=== PATIENT | female | born 1945 | race Hispanic/Latino ===

== ENCOUNTER 2017-07-30 21:09 | Inpatient (IN) | payer OTHER, MEDICARE ==
[2017-07-30 21:09] VITALS: BMI 17.2
--- NOTE | 2017-07-30 21:22 | ED PDOC ---
"Arrival/HPI - General Time Seen by Provider: 07/30/17 21:14 Historian: Patient, Parent, EMS - History of Present Illness Narrative History of Present Illness (Text): 07/30/17 21:16 72 year old female, pmh including htn/copd/lt. hip fracture/celiac disease/ osteoporosis, nkda, complaining of upper and abdominal pain x 1 week with nausea/vomiting. Pt. stated that she has upper and lower abdominal pain, on and off x 1 week, not been eating for the past 5 days, radiating to the rt. shoulder blade region, 4/10 pain scale, associated with nausea dry heaving, stated that she had an episode of fever about 3 days ago which has resolved since, no chest pain or shortness of breath, no night sweat, no diarrhea, no numbness or tingling, no other medical or psychological complaints. Past Medical History - Provider Review Nursing Documentation Reviewed: Yes - Infectious Disease Hx of Infectious Diseases: None - Tetanus Immunization Tetanus Immunization: Up to Date - Past Medical History Past Medical History: No Previous - Cardiac Hx Cardiac Disorders: Yes Other/Comment: PALPITATIONS POST ORIF R HIP ONE EPISODE - Pulmonary Hx Chronic Obstructive Pulmonary Disease (COPD): Yes - Neurological Hx Neurological Disorder: No - HEENT Hx HEENT Disorder: No - Renal Hx Renal Disorder: No - Endocrine/Metabolic Hx Endocrine Disorders: No - Hematological/Oncological Hx Blood Transfusions: No Hx Blood Transfusion Reaction: No - Integumentary Hx Dermatological Disorder: No - Musculoskeletal/Rheumatological Hx Falls: Yes (@ HOME TODAY) - Gastrointestinal Hx Gastrointestinal Disorders: Yes Other/Comment: CELIAC DISEASE - Genitourinary/Gynecological Hx Genitourinary Disorders: No - Psychiatric Hx Psychophysiologic Disorder: Yes Hx Anxiety: Yes Hx Bipolar Disorder: Yes Hx Panic Disorder: Yes (PALPITATIONS) Hx Substance Use: No - Surgical History Hx Orthopedic Surgery: Yes (ORIF RIGHT HIP) - Anesthesia Hx Anesthesia Reactions: No Hx Malignant Hyperthermia: No - Suicidal Assessment Feels Threatened In Home Enviroment: No Family/Social History - Physician Review Nursing Documentation Reviewed: Yes Family/Social History: Unknown Family HX Smoking Status: Never Smoked Hx Alcohol Use: No Hx Substance Use: No Hx Substance Use Treatment: No Allergies/Home Meds Allergies/Adverse Reactions: Allergies No Known Allergies Allergy (Verified 06/03/14 15:21) Home Medications: Home Meds Medication Instructions Recorded Confirmed Diazepam 5 mg PO BID 06/03/14 07/31/17 Quetiapine Fumarate [Seroquel] 50 mg PO BID 06/03/14 07/31/17 Tramadol Hydrochloride [Tramadol] 50 mg PO TID PRN 06/03/14 07/31/17 Aspirin 81 mg PO DAILY 07/31/17 07/31/17 Cholecalciferol (Vitd3)/Vit K2 5,000 units PO DAILY 07/31/17 07/31/17 [Dosoquin Tablet] FLUoxetine [Prozac] 20 mg PO BID 07/31/17 07/31/17 Gabapentin [Neurontin] 50 mg PO TID PRN 07/31/17 07/31/17 Levocetirizine Dihydrochloride 5 mg PO DAILY 07/31/17 07/31/17 [Xyzal] Levothyroxine [Synthroid] 50 mcg PO DAILY 07/31/17 07/31/17 Potassium Chloride [Klor-Con M10] 10 meq PO BID 07/31/17 07/31/17 Preservision Areds Softgel TID 07/31/17 tiZANidine [Zanaflex] 4 mg PO HS 07/31/17 07/31/17 traMADol [Ultram] 50 mg PO DAILY PRN 07/31/17 07/31/17 Review of Systems - Review of Systems Constitutional: Fevers. absent: Fatigue Eyes: absent: Vision Changes ENT: absent: Hearing Changes Respiratory: absent: SOB, Cough Cardiovascular: absent: Chest Pain Gastrointestinal: Abdominal Pain, Nausea, Vomiting. absent: Diarrhea Skin: absent: Rash, Pruritis Neurological: absent: Headache, Dizziness Psychiatric: absent: Anxiety, Depression, Suicidal Ideation Physical Exam Vital Signs Reviewed: Yes Vital Signs Temp Pulse Resp BP Pulse Ox 07/31/17 01:29 82 16 148/82 100 07/31/17 01:07 84 18 150/66 99 07/30/17 21:22 82 18 148/76 99 07/30/17 21:19 97.1 F L 69 18 99 Temperature: Afebrile Pulse: Regular Respiratory Rate: Normal Appearance: Positive for: Ill-Appearing, Unkept, Uncomfortable Pain Distress: Moderate Mental Status: Positive for: Alert and Oriented X 3 - Systems Exam Head: Present: Atraumatic, Normocephalic Pupils: Present: PERRL Extroacular Muscles: Present: EOMI Conjunctiva: Present: Normal Mouth: Present: Moist Mucous Membranes Neck: Present: Normal Range of Motion Respiratory/Chest: Present: Clear to Auscultation, Good Air Exchange. No: Respiratory Distress, Accessory Muscle Use Cardiovascular: Present: Regular Rate and Rhythm, Normal S1, S2. No: Murmurs Abdomen: Present: Tenderness (periumbilical and epigastric tenderness). No: Distention, Peritoneal Signs, Rebound, Guarding Back: Present: Normal Inspection. No: CVA Tenderness, Midline Tenderness Upper Extremity: Present: Normal Inspection. No: Cyanosis, Edema Lower Extremity: Present: Normal Inspection. No: Edema Neurological: Present: GCS=15, CN II-XII Intact, Speech Normal, Motor Func Grossly Intact, Memory Normal Skin: Present: Warm, Dry, Normal Color. No: Rashes Psychiatric: Present: Alert, Oriented x 3, Normal Insight, Normal Concentration Medical Decision Making ED Course and Treatment: 07/30/17 21:25 -labs/lipase/cardiac iso/ua -ekg -cxr -CT abdomen and pelvis -IVF/pepcid/zofran -Observe and reassess 07/31/17 00:40 -EKG: NSR @ 68 BPM, no ST elevation or depression, no T wave inversion. -Chest xray show no active disease -CT abdomen and pelvis show Markedly distended gallbladder with layering sludge or tiny stones. Recommend correlation with laboratory values. Right upper quadrant ultrasound could be obtained if warranted. Mildly dilated common bile duct and pancreatic duct. No distal common bile duct stone or periampullary mass. Left midpole renal mass. Renal cell carcinoma is not excluded. Surgical consult recommended. Recommend surgical evaluation. Alternatively, if patient has a limited life expectancy or significant co-morbidities, abdominal CT or MRI follow-up in 1 year could be performed. Mild diverticulosis. No acute diverticulitis. Age indeterminate anterior wedge T12 compression fracture. -Labs show no acute findings except wbc 15.6 and Anion gap 28, BNP 480, Troponin 0.04 from 0.06 -Acetaminophen/salicylate/alcohol levels are within normal limit -Lactic acid 1.1 -VBG: PH 7.15, PCO2 34 with HCO3 11.8. Metabolic acidosis from starvation ketoacidosis? -Urinalysis ordered and pending. -IV cipro and flagyl ordered with gallbladder sonogram. -I spoke to Dr. Mir about this case including labs/radiology result about the cholecystitis picture with incidental renal mass which she request DR. Kennedy and Dr. Hilton to be on the routine consult which I placed the order, pt. agreed and happy with these specialists as she has no preference. -I spoke to the surgical assistant certified fuel injection servicer now, Dr. Elaine Spicer and discussed with Dr. Kennedy about this case, will come to evaluate the patient. -I discussed with Dr. Dyson about this case/labs/radiology result and troponin 0.04 which last was 0.06 and suggest no aspirin indicated as the patient has no chest pain or shortness of breath, he will put in the admission order. 07/31/17 00:43 -Pt in pain, IV morphine ordered - Lab Interpretations Lab Results: 07/30/17 21:43 07/30/17 21:43 Lab Results 07/30/17 22:05: Alcohol, Quantitative < 10 07/30/17 22:05: Salicylates < 1 L, Acetaminophen < 10.0 L 07/30/17 21:43: pO2 34, VBG pH 7.15 L*, VBG pCO2 34.0 L, VBG HCO3 11.8 L, VBG Total CO2 12.8 L, VBG O2 Sat (Calc) 67.1 H, VBG Base Excess -16.0 L, VBG Potassium 3.8, Sodium 142.0, Chloride 111.0 H, Glucose 103, Lactate 1.1, FiO2 21.0, Venous Blood Potassium 3.8 07/30/17 21:43: Sodium 147, Chloride 111 H, Potassium 3.8, Carbon Dioxide 11 L, Anion Gap 28 H, BUN 11, Creatinine 0.5 L, Est GFR ( Amer) > 60, Est GFR ( Non-Af Amer) > 60, Random Glucose 104, Calcium 9.6, Magnesium 1.7, Total Bilirubin 0.5, AST 21, ALT 25, Alkaline Phosphatase 80, Lactate Dehydrogenase 491, Total Creatine Kinase 61, Troponin I 0.04 D, NT-Pro-B Natriuret Pep 484 H , Total Protein 8.0, Albumin 4.6, Globulin 3.4, Albumin/Globulin Ratio 1.4, Lipase 153 07/30/17 21:43: WBC 15.6 H D, RBC 4.76, Hgb 12.6, Hct 38.5, MCV 80.9, MCH 26.5, MCHC 32.7, RDW 17.3 H, Plt Count 414, MPV 10.8, Gran % 95.4 H, Lymph % (Auto) 2.8 L, Luna % (Auto) 1.7, Eos % (Auto) 0.0 L, Baso % (Auto) 0.1, Gran # 14.87 H , Lymph # (Auto) 0.4 L, Luna # (Auto) 0.3, Eos # (Auto) 0.0, Baso # (Auto) 0.02 , Neutrophils % (Manual) 90 H, Band Neutrophils % 3 H, Lymphocytes % (Manual) 3 L, Monocytes % (Manual) 3, Metamyelocytes % 1, Platelet Evaluation Normal, Large Platelets Present - RAD Interpretation Radiology Orders: 07/30/17 21:22 ABD & PELVIS IV CONTRAST ONLY [CT] Stat CHEST PORTABLE [RAD] Stat 07/31/17 00:13 GALLBLADDER & PANCREAS [US] Stat Chest xray: no active disease Gallbladder/pancrea sonogram: FINDINGS: Liver: Unremarkable measuring 16.9 cm. No mass. No intrahepatic bile duct dilation. Gallbladder: The gallbladder is distended with sludge and stones. Common bile duct: Unremarkable as visualized measuring 7 mm. No stones. No dilation. Pancreas: The pancreas is poorly-visualized due to overlying bowel gas. Right kidney: Unremarkable measuring 10.8 cm. No stones. No solid mass. No hydronephrosis. IMPRESSION: Gallbladder sludge and stones. Thank you for allowing us to participate in the care of your patient. Dictated and Authenticated by: Silvia Jaquez MD 07/31/2017 1:48 AM Eastern Time ([place] & [place]) CT abdomen and pelvis: COMPARISON: No relevant prior studies available. FINDINGS: Lung bases: There is minimal bibasilar atelectasis. Left lung base linear atelectasis or scar. ABDOMEN: Liver: There is a diffuse decrease in hepatic parenchymal density, consistent with fatty infiltration. There is a solid mass in the midpole of the left kidney measuring 2 x 1.8 x 2.3 cm. KIRK CHELI | Final Radiology Report Page 2 of 3 Gallbladder and bile ducts: The gallbladder is markedly distended. Layering density in the gallbladder could be secondary to sludge or tiny stones. The common bile duct is mildly dilated measuring 6 mm. Pancreas: There is diffuse atrophy of the pancreatic parenchyma. No mass. The pancreatic duct is mildly dilated measuring 4 mm. Spleen: Unremarkable. No splenomegaly. Adrenals: Unremarkable. No mass. Kidneys and ureters: Unremarkable. No solid mass. No hydronephrosis. Stomach and bowel: Mild diverticulosis is present in the sigmoid and descending colon. No obstruction. No mucosal thickening. PELVIS: Appendix: No appendix is specifically identified. There is no evidence of fluid collections or inflammatory stranding in the pericecal area. Bladder: Unremarkable. No mass. Reproductive: Unremarkable as visualized. ABDOMEN and PELVIS: Intraperitoneal space: Unremarkable. No free air. No significant fluid collection. Bones/joints: There are surgical screws in the hips bilaterally. There is marked diffuse osteopenia. There is an age-indeterminate compression deformity of the T12 vertebral body, with 70 % loss of anterior height. No dislocation. Soft tissues: Unremarkable. Vasculature: The vasculature demonstrates diffuse mild atherosclerotic calcification. No abdominal aortic aneurysm. Lymph nodes: Unremarkable. No enlarged lymph nodes. IMPRESSION: Markedly distended gallbladder with layering sludge or tiny stones. Recommend correlation with laboratory values. Right upper quadrant ultrasound could be obtained if warranted. Mildly dilated common bile duct and pancreatic duct. No distal common bile duct stone or periampullary mass. Left midpole renal mass. Renal cell carcinoma is not excluded. Surgical consult recommended. Recommend surgical evaluation. Alternatively, if patient has a limited life expectancy or significant co-morbidities, abdominal CT or MRI follow-up in 1 year could be performed. Mild diverticulosis. No acute diverticulitis. Age indeterminate anterior wedge T12 compression fracture. Thank you for allowing us to participate in the care of your patient. Dictated and Authenticated by: Silvia Jaquez MD Ammonium Nitrate Crystallizer: Radiologist - EKG Interpretation EKG Interpretation (Text): 07/30/17 21:42 -EKG: NSR @ 68 BPM, no ST elevation or depression, no T wave inversion. Interpreted by ED Physician: Yes Type: 12 lead EKG - Medication Orders Current Medication Orders: Acetaminophen (Tylenol 325mg Tab) 650 mg PO Q6H PRN PRN Reason: Headache Last Admin: 07/31/17 10:47 Dose: 650 mg MAR Pain/Vitals Document 07/31/17 10:47 LMN (Rec: 07/31/17 10:47 LMN [facility]-[id number]) Pain Reassessment Is This A Pain ReAssessment? No Presence of Pain Presence of Pain Yes Location Pain Location Body [place] Description Radiating Albuterol/Ipratropium (Duoneb 3 Mg/0.5 Mg (3 Ml) Ud) 3 ml IH [id number] PRN PRN Reason: Shortness of Breath Diazepam (Valium) 5 mg PO BID [facility] Last Admin: 07/31/17 18:09 Dose: 5 mg Behavioural Document 07/31/17 18:09 LMN (Rec: 07/31/17 18:09 LMN [facility]-[id number]) Maintenance Maintenance Dose Yes Fluoxetine HCl (Prozac) 20 mg PO BID [facility] Last Admin: 08/01/17 12:26 Dose: Home Med (Home Med) 1 unit PO TID PRN PRN Reason: NEUROPATHY Metronidazole (Flagyl) 250 mg in 50 mls @ 100 mls/hr IVPB Q8 [place]ODIA PRN Reason: Protocol Stop: 08/05/17 10:01 Last Admin: 08/03/17 05:44 Dose: 100 mls/hr eMAR Start Stop Document 08/03/17 05:44 SRE (Rec: 08/03/17 05:44 SRE [id number]) Intravenous Solution Start Date 08/03/17 Start Time 05:44 Ceftriaxone Sodium (Rocephin 1 Gram Ivpb) 1 gm in 100 mls @ 100 mls/hr IVPB DAILY ELODIA PRN Reason: Protocol Stop: 08/04/17 10:59 Last Admin: 08/03/17 15:18 Dose: 100 mls/hr eMAR Start Stop Document 08/03/17 15:18 DEL (Rec: 08/03/17 15:18 DEL [id number]) Intravenous Solution Start Date 08/03/17 Start Time 15:18 End Date 08/03/17 End time 16:20 Total Infusion Time 62 Potassium Phosphate 20 mmole/ (Dextrose/Sodium Chloride) 1,006.6667 mls @ 80 mls/hr IV .[id number] ELODIA Last Admin: 08/03/17 15:15 Dose: 80 mls/hr eMAR Start Stop Document 08/03/17 15:15 DEL (Rec: 08/03/17 15:15 DEL [id number]) Intravenous Solution Start Date 08/03/17 Start Time 15:15 Levothyroxine Sodium (Synthroid) 50 mcg PO DAILY [facility] Last Admin: 08/03/17 09:12 Dose: 50 mcg Magnesium Oxide (Mag-Ox) 400 mg PO BID [facility] Last Admin: 08/03/17 09:12 Dose: 400 mg Morphine Sulfate (Morphine) 2 mg IVP Q4H PRN PRN Reason: Pain, severe (8-10) Ondansetron HCl (Zofran Inj) 4 mg IVP Q6H PRN PRN Reason: Nausea/Vomiting Potassium Chloride (Klor-Con 10) 10 meq PO BRK [facility] Potassium Phos/Sodium Phos (Neutra-Phos) 1 pkt PO BID [facility] Last Admin: 08/03/17 09:13 Dose: 1 pkt Quetiapine Fumarate (Seroquel) 50 mg PO HS [facility] Last Admin: 07/31/17 22:50 Dose: 50 mg Behavioural Document 07/31/17 22:50 IMT (Rec: 07/31/17 22:50 IMT [facility]-[id number]) Maintenance Maintenance Dose Yes Nonmedicinal Nonmedicinal Interventions Redirect Behavior Behavior for Medication: Anxiety Insomnia Re-Assess: Reassess Psych Meds Document 07/31/17 23:50 IMT (Rec: 08/01/17 02:26 IMT [id number]) Reassess Psych Med Effective Discontinued Medications Diphenhydramine HCl (Benadryl) 25 mg PO HS ONE Stop: 07/31/17 22:48 Last Admin: 07/31/17 22:59 Dose: 25 mg Famotidine (Pepcid) 20 mg IVP STAT STA Stop: 07/30/17 21:23 Last Admin: 07/30/17 21:42 Dose: 20 mg IVP Administration Document 07/30/17 21:42 RAMY (Rec: 07/30/17 21:42 RAMY [id number]) Charges for Administration # of IVP Administrations 1 Gabapentin (Neurontin) 50 mg PO TID PRN; Protocol PRN Reason: neuropathy Sodium Chloride (Sodium Chloride 0.9%) 1,000 mls @ 100 mls/hr IV .Q10H ELODIA Last Admin: 07/30/17 21:41 Dose: 100 mls/hr eMAR Start Stop Document 07/30/17 21:41 RAMY (Rec: 07/30/17 21:42 RAMY [id number]) Intravenous Solution Start Date 07/30/17 Start Time 21:41 Ciprofloxacin (Cipro 400mg/200ml Dsw) 400 mg in 200 mls @ 133.3 mls/hr IVPB STAT STA PRN Reason: Protocol Stop: 07/31/17 01:48 Last Admin: 07/31/17 01:16 Dose: 133.3 mls/hr eMAR Start Stop Document 07/31/17 01:16 RAMY (Rec: 07/31/17 01:16 RAMY [id number]) Intravenous Solution Start Date 07/31/17 Start Time 01:16 End Date 07/31/17 End time 02:46 Total Infusion Time 90 Metronidazole (Flagyl) 500 mg in 100 mls @ 100 mls/hr IVPB STAT STA PRN Reason: Protocol Stop: 07/31/17 01:17 Last Admin: 07/31/17 01:10 Dose: 100 mls/hr eMAR Start Stop Document 07/31/17 01:10 RAMY (Rec: 07/31/17 01:11 RAMY [id number]) Intravenous Solution Start Date 07/31/17 Start Time 01:10 End Date 07/31/17 Potassium Chloride (Potassium Chloride 10 Meq/100 Ml) 10 meq in 100 mls @ 50 mls/hr IVPB Q2H [place] Stop: 08/01/17 11:29 Last Admin: 08/01/17 15:03 Dose: 50 mls/hr eMAR Start Stop Document 08/01/17 15:03 MARJAN (Rec: 08/01/17 15:04 MARJAN [facility]-MICROBIOLOGY LAB ASSISTANT) Intravenous Solution Start Date 08/01/17 Start Time 15:03 End Date 08/01/17 End time 16:00 Total Infusion Time 57 Potassium Chloride (Potassium Chloride 20 Meq/100 Ml) 20 meq in 100 mls @ 50 mls/hr IVPB ONCE ONE Stop: 08/01/17 11:31 Last Admin: 08/01/17 12:33 Dose: 50 mls/hr eMAR Start Stop Document 08/01/17 12:33 MARJAN (Rec: 08/01/17 12:35 [facility]JAN [facility]-MICROBIOLOGY LAB ASSISTANT) Intravenous Solution Start Date 08/01/17 Start Time 11:20 End Date 08/01/17 End time 12:25 Total Infusion Time 65 Propofol (Diprivan) 1,000 mg in 100 mls @ 1.361 mls/hr IV .Q24H PRN; Protocol; 5 MCG/KG/MIN PRN Reason: TITRATE PER MD ORDER Last Titration: 08/02/17 10:00 Dose: 0 mcg/kg/min, 0 mls/hr Bello Agitation Sedation Document 08/02/17 10:00 MARJAN (Rec: 08/02/17 15:57 [facility]JAN [facility]-MICROBIOLOG[facility] LAB ASSISTANT) Bello Agitation Sedation Scale Bello Agitation Sedation Scale Score 0 Alert and Calm: Spontaneously pays attention to daycare teacher Titration Intervention Document 08/02/17 10:00 MARJAN (Rec: 08/02/17 15:57 MARJAN [facility] [place]-MICROBIOLOGY LAB ASSISTANT) Titration Intake Titration Intake 0 Cumulative Intake 100 Cumulative Intake (Rx) 300 Waste Amount 0 Container Volume 0 Titration Dosing Titration Dose 0 IV Rate 0 Intake/Decrease Infused Cumulative Dose 3000 Vancomycin HCl (Vancomycin 1gm) 1 gm in 250 mls @ 167 mls/hr IVPB STAT STA PRN Reason: Protocol Stop: 08/01/17 12:50 Last Admin: 08/01/17 12:27 Dose: 167 mls/hr eMAR Start Stop Document 08/01/17 12:27 MARJAN (Rec: 08/01/17 12:28 MARJAN [facility]-MICROBIOLOGY LAB ASSISTANT) Intravenous Solution Start Date 08/01/17 Start Time 12:27 End Date 08/01/17 End time 14:00 Total Infusion Time 93 Magnesium Sulfate/Dextrose (Magnesium Sulfate 1 Gm/100 Ml D5w) 1 gm in 100 mls @ 100 mls/hr IVPB Q1H [place]ODIA Stop: 08/01/17 13:59 Last Admin: 08/01/17 16:01 Dose: Potassium Chloride (Potassium Chloride 20 Meq/100 Ml) 20 meq in 100 mls @ 50 mls/hr IVPB Q2H [place] Stop: 08/01/17 18:44 Last Admin: 08/03/17 09:13 Dose: 50 mls/hr eMAR Start Stop Document 08/03/17 09:13 DEL (Rec: 08/03/17 09:13 DEL [id number]) Intravenous Solution Start Date 08/03/17 Start Time 09:13 End Date 08/03/17 End time 11:15 Total Infusion Time 122 Magnesium Sulfate/Dextrose (Magnesium Sulfate 1 Gm/100 Ml D5w) 1 gm in 100 mls @ 100 mls/hr IVPB ONCE ONE Stop: 08/01/17 15:57 Last Admin: 08/01/17 14:00 Dose: 100 mls/hr eMAR Start Stop Document 08/01/17 14:00 MARJAN (Rec: 08/02/17 07:54 MARJAN [facility]-MICROBIOLOGY LAB ASSISTANT) Intravenous Solution Start Date 08/01/17 Start Time 14:00 End Date 08/01/17 End time 15:00 Total Infusion Time 60 Potassium Chloride (Potassium Chloride 10 Meq/100 Ml) 10 meq in 100 mls @ 50 mls/hr IVPB Q2H [place] Stop: 08/01/17 19:14 Last Admin: 08/01/17 17:59 Dose: 50 mls/hr eMAR Start Stop Document 08/01/17 17:59 MARJAN (Rec: 08/01/17 18:00 MARJAN [facility]-MICROBIOLOGY LAB ASSISTANT) Intravenous Solution Start Date 08/01/17 Start Time 17:59 End Date 08/01/17 End time 18:55 Total Infusion Time 56 Potassium Phosphate 30 mmole/ (Sodium Chloride) 260 mls @ 65 mls/hr IVPB .Q4H ONE Stop: 08/01/17 19:29 Last Admin: 08/01/17 18:15 Dose: 65 mls/hr eMAR Start Stop Document 08/01/17 18:15 MARJAN (Rec: 08/01/17 18:25 [facility]-MI[facility]BI[facility] ASS[facility]) Intravenous Solution Start Date 08/01/17 Start Time 18:23 End Date 08/01/17 End time 22:30 Total Infusion Time 247 Potassium Chloride (Potassium Chloride 10 Meq/100 Ml) 10 meq in 100 mls @ 50 mls/hr IVPB Q2H [place] Stop: 08/02/17 01:44 Last Admin: 08/01/17 23:24 Dose: 50 mls/hr eMAR Start Stop Document 08/01/17 23:24 JBO (Rec: 08/01/17 23:25 JBO [facility]-MICROBIOLOGY LAB ASSISTANT) Intravenous Solution Start Date 08/01/17 Start Time 23:20 End Date 08/02/17 End time 01:20 Total Infusion Time 120 Potassium Chloride (Potassium Chloride 10 Meq/100 Ml) 10 meq in 100 mls @ 50 mls/hr IVPB Q2H [place] Stop: 08/02/17 14:59 Last Admin: 08/02/17 14:48 Dose: Sodium Chloride (Sodium Chloride 0.45%) 1,000 mls @ 80 mls/hr IV .[id number] ELODIA Last Admin: 08/02/17 12:25 Dose: 80 mls/hr eMAR Start Stop Document 08/02/17 12:25 MARJAN (Rec: 08/02/17 12:26 MARJAN [facility]-MICROBIOLOGY LAB ASSISTANT) Intravenous Solution Start Date 08/02/17 Start Time 12:25 End Date 08/02/17 Sodium Bicarbonate 100 meq/ (Dextrose) 1,100 mls @ 80 mls/hr IV .[id number] ELODIA Last Admin: 08/03/17 10:14 Dose: 80 mls/hr eMAR Start Stop Document 08/03/17 10:14 DEL (Rec: 08/03/17 10:14 DEL [id number]) Intravenous Solution Start Date 08/03/17 Start Time 10:14 Potassium Chloride (Potassium Chloride 20 Meq/100 Ml) 20 meq in 100 mls @ 50 mls/hr IVPB Q2H ELODIA Stop: 08/03/17 11:59 Last Admin: 08/03/17 12:02 Dose: 50 mls/hr eMAR Start Stop Document 08/03/17 12:02 DEL (Rec: 08/03/17 12:02 DEL [id number]) Intravenous Solution Start Date 08/03/17 Start Time 12:02 End Date 08/03/17 End time 14:00 Total Infusion Time 118 Lorazepam (Ativan) 1 mg IVP ONCE ONE PRN Reason: Protocol Stop: 08/01/17 11:35 Magnesium Oxide (Mag-Ox) 400 mg PO STAT STA Stop: 08/01/17 09:33 Last Admin: 08/01/17 12:25 Dose: 400 mg Metoclopramide HCl (Reglan) 10 mg IVP STAT STA Stop: 07/30/17 22:42 Last Admin: 07/30/17 22:41 Dose: 10 mg IVP Administration Document 07/30/17 22:41 RAMY (Rec: 07/31/17 01:16 RAMY [id number]) Charges for Administration # of IVP Administrations 1 Morphine Sulfate (Morphine) 4 mg IVP STAT STA Stop: 07/31/17 00:19 Last Admin: 07/31/17 01:10 Dose: 4 mg MAR Pain Assessment Document 07/31/17 01:10 RAMY (Rec: 07/31/17 01:10 RAMY [id number]) Pain Reassessment Is this a pain reassessment? No IVP Administration Document 07/31/17 01:10 RAMY (Rec: 07/31/17 01:10 RAMY [id number]) Charges for Administration # of IVP Administrations 1 Morphine Sulfate (Morphine) 2 mg IVP Q4H PRN PRN Reason: Pain, severe (8-10) Non-Formulary Medication (Diazepam [Diazepam]) 5 mg PO BID ELODIA Non-Formulary Medication (Quetiapine Fumarate [Seroquel]) 50 mg PO HS [place]OD[place] Ondansetron HCl (Zofran Inj) 4 mg IVP STAT STA Stop: 07/30/17 21:23 Last Admin: 07/30/17 21:42 Dose: 4 mg IVP Administration Document 07/30/17 21:42 RAMY (Rec: 07/30/17 21:42 RAMY [id number]) Charges for Administration # of IVP Administrations 1 Potassium Chloride (Potassium Chloride Oral Soln) 40 meq PO ONCE ONE Stop: 08/01/17 12:38 Last Admin: 08/01/17 16:38 Dose: 40 meq Potassium Chloride (Potassium Chloride Oral Soln) 40 meq PO ONCE ONE Stop: 08/02/17 10:48 Last Admin: 08/02/17 11:39 Dose: 40 meq Potassium Phosphate (Potassium Phosphate) 30 mmole IV ONCE ONE Stop: 08/01/17 15:01 Last Admin: 08/01/17 07:45 Dose: Zolpidem Tartrate (Ambien) 5 mg PO ONCE ONE PRN Reason: Protocol Stop: 08/02/17 22:51 Last Admin: 08/02/17 23:20 Dose: 5 mg Behavioural Document 08/02/17 23:20 SRE (Rec: 08/02/17 23:21 SRE [id number]) Maintenance Maintenance Dose No Nonmedicinal Nonmedicinal Interventions See nurse's notes Behavior Behavior for Medication: Insomnia Re-Assess: Reassess Psych Meds Document 08/03/17 00:20 SRE (Rec: 08/03/17 05:33 SRE [id number]) Reassess Psych Med Effective - PA / [employer]ALLET [employer]SEM[employer]ER / Resident Statement MD/ has reviewed & agrees with the documentation as recorded. Disposition/Present on Arrival - Present on Arrival Any Indicators Present on Arrival: No History of DVT/PE: No History of Uncontrolled Diabetes: No Urinary Catheter: Yes (INSERTED IN ED TODAY) History of Decub. Ulcer: No History Surgical Site Infection Following: None - Disposition Have Diagnosis and Disposition been Completed?: Yes Diagnosis: Leukocytosis, Cholecystitis, Renal mass, Abdominal pain Disposition: HOSPITALIZED Disposition Time: 21:26 Patient Plan: Admission, Telemetry Patient Problems: Current Active Problems Problem Status Onset Leukocytosis Acute Cholecystitis Acute Renal mass Acute Abdominal pain Acute Condition: GUARDED"
[2017-07-30] MEDS ORDERED: Sodium Chloride 0.9% 1,000 ML IV SCH (21:30)
[2017-07-30 21:56] LABS: BASO # 0.02 K/mm3 (0.0-2.0); BASO % 0.1 % (0.0-3.0); GRAN # 14.87 (1.4-6.5); GRAN % 95.4 % (50.0-68.0); HEMOGLOBIN 12.6 g/dL (12.0-16.0); LYMPH # 0.4 (1.2-3.4); LYMPH % 2.8 % (22.0-35.0); MEAN CELL VOLUME 80.9 fl (80.0-105.0); MEAN CORPUSCULAR HEMOGLOBIN 26.5 pg (25.0-35.0); MEAN CORPUSCULAR HGB CONC 32.7 g/dl (31.0-37.0); MEAN PLATELET VOLUME 10.8 fl (7.0-11.0); MONO # 0.3 (0.1-0.6); MONO % 1.7 % (1.0-6.0); PLATELET COUNT 414 10^3/uL (120.0-450.0); RBC 4.76 10^6/uL (3.5-6.1); RED CELL DISTRIBUTION WIDTH 17.3 % (11.5-14.5); VENOUS BLOOD GAS PO2 34 mm/Hg (30-55); WHITE BLOOD COUNT 15.6 10^3/ul (4.5-11.0)
[2017-07-30 22:01] LABS: ALB/GLOB RATIO 1.4 (1.1-1.8); ALBUMIN 4.6 g/dL (3.0-4.8); ALT/SGPT 25 U/L (7-56); AST/SGOT 21 U/L (14-36); BLOOD UREA NITROGEN 11 mg/dL (7-21); CALCIUM 9.6 mg/dL (8.4-10.5); GFR AFRICAN-AMERICAN > 60; GFR NON-AFRICAN AMERICAN > 60; LIPASE 153 U/L (23-300)
[2017-07-30 22:02] LABS: VENOUS BLOOD PH 7.15 (7.32-7.43)
[2017-07-30] MEDS ORDERED: Iohexol 350 MG/100 ML VIAL ONE (22:10)
[2017-07-30 22:12] LABS: B-TYPE NATRIURETIC PEPTIDE 484 pg/mL (0-450); TROPONIN I 0.04 ng/mL
[2017-07-30 22:22] LABS: ACETAMINOPHEN < 10.0 ug/ml (10.0-20.0); SALICYLATE < 1 mg/dL (2.0-20.0)
[2017-07-30 22:28] LABS: BAND 3 % (0-2); LYMPHOCYTE 3 % (22.0-35.0); METAMYELOCYTE 1 %; MONOCYTE 3 % (1.0-6.0); NEUTROPHIL 90 % (50.0-70.0)
[2017-07-30 22:29] LABS: LARGE PLATELETS PRESENT
[2017-07-30 22:30] LABS: PLATELET ESTIMATE NORMAL (NORMAL)
--- NOTE | 2017-07-31 00:03 | CT ---
EXAM: CT Abdomen and Pelvis With Intravenous Contrast CLINICAL HISTORY: 72 years old, female; Pain; Abdominal pain; Additional info: Lower abdomina pain/nausea/vomiting/fever? TECHNIQUE: Axial computed tomography images of the abdomen and pelvis with intravenous contrast. All CT scans at this facility use one or more dose reduction techniques, viz.: automated exposure control; ma/kV adjustment per patient size (including targeted exams where dose is matched to indication; i.e. head); or iterative reconstruction technique. Coronal and sagittal reformatted images were created and reviewed. CONTRAST: 92 mL of OMNI 350 administered intravenously. COMPARISON: No relevant prior studies available. FINDINGS: Lung bases: There is minimal bibasilar atelectasis. Left lung base linear atelectasis or scar. ABDOMEN: Liver: There is a diffuse decrease in hepatic parenchymal density, consistent with fatty infiltration. There is a solid mass in the midpole of the left kidney measuring 2 x 1.8 x 2.3 cm. Gallbladder and bile ducts: The gallbladder is markedly distended. Layering density in the gallbladder could be secondary to sludge or tiny stones. The common bile duct is mildly dilated measuring 6 mm. Pancreas: There is diffuse atrophy of the pancreatic parenchyma. No mass. The pancreatic duct is mildly dilated measuring 4 mm. Spleen: Unremarkable. No splenomegaly. Adrenals: Unremarkable. No mass. Kidneys and ureters: Unremarkable. No solid mass. No hydronephrosis. Stomach and bowel: Mild diverticulosis is present in the sigmoid and descending colon. No obstruction. No mucosal thickening. PELVIS: Appendix: No appendix is specifically identified. There is no evidence of fluid collections or inflammatory stranding in the pericecal area. Bladder: Unremarkable. No mass. Reproductive: Unremarkable as visualized. ABDOMEN and PELVIS: Intraperitoneal space: Unremarkable. No free air. No significant fluid collection. Bones/joints: There are surgical screws in the hips bilaterally. There is marked diffuse osteopenia. There is an age-indeterminate compression deformity of the T12 vertebral body, with 70 % loss of anterior height. No dislocation. Soft tissues: Unremarkable. Vasculature: The vasculature demonstrates diffuse mild atherosclerotic calcification. No abdominal aortic aneurysm. Lymph nodes: Unremarkable. No enlarged lymph nodes. IMPRESSION: Markedly distended gallbladder with layering sludge or tiny stones. Recommend correlation with laboratory values. Right upper quadrant ultrasound could be obtained if warranted. Mildly dilated common bile duct and pancreatic duct. No distal common bile duct stone or periampullary mass. Left midpole renal mass. Renal cell carcinoma is not excluded. Surgical consult recommended. Recommend surgical evaluation. Alternatively, if patient has a limited life expectancy or significant co-morbidities, abdominal CT or MRI follow-up in 1 year could be performed. Mild diverticulosis. No acute diverticulitis. Age indeterminate anterior wedge T12 compression fracture.
[2017-07-31] MEDS ORDERED: Ciprofloxacin 400mg/200ml D5W 400 MG/200 ML BAG IVPB STA (00:18)
[2017-07-31] MEDS ORDERED: metroNIDAZOLE IV 500 mg/100 ml 500 MG/100 ML BAG IVPB STA (00:18)
[2017-07-31] MEDS ORDERED: Morphine 4 mg/ml ISec IVP STA (00:18)
--- NOTE | 2017-07-31 01:33 | CP.PCM.CON ---
History of Present Illness - History of Present Illness History of Present Illness: General surgery consult note for Dr. Wilton Spicer, PGY-1 Pt S & E at bedside at 0105 72F w/PMH sig for celiac disease consulted for possible cholecystitis. Pt reports "feeling terrible, hot" on 07/25. The following day, pt reports feeling "hot", temperature was taken at home with Tmax 102.9. Pt took advil with resolution of fever over next 2 days. Admits to concurrent anorexia (poor PO intake of fluids and food). Pt started to feel better, but 2 days prior to admission started to have emesis (nb, phlegm) x 6-8 daily. Pt reports having similar episodes previously, usually associated with food getting stuck in her throat or post nasal drip. Admits to generalized weakness, malaise, "feels tense, like I can't settle down", one episode of spinal pain over area that was broken, numbness & tingling of feet (chronic). Denies abdominal pain, constipation, diarrhea, chest pain, SOB, pain with food/spicy food, other complaints. In ED CT ab w/Markedly distended gallbladder with layering sludge or tiny stones.Mildly dilated common bile duct and pancreatic duct. No distal common bile duct stone or periampullary mass. Left midpole renal mass. Renal cell carcinoma is not excluded. Afebrile. Leukocytosis of 15.6 PMH: Celiac disease, neuropathy, osteoporosis, HTN, hx of broken back PSH: B/L hip sx All: gluten SH: Denies ETOH, tobacco or illicit drug use. Non ambulatory since 10/2016 PMD: Kathleen Review of Systems - Review of Systems All systems: reviewed and no additional remarkable complaints except - Constitutional Constitutional: Chills, Fever, Lethargy, Malaise, Weakness. absent: Headache, Increased Appetite - EENT Eyes: absent: Change in Vision Ears: absent: Dizziness Nose/Mouth/Throat: Post Nasal Drip (chronic), Sore Throat (on Tuesday) - Cardiovascular Cardiovascular: absent: Chest Pain, Leg Edema, Palpitations - Respiratory Respiratory: absent: Cough - Gastrointestinal Gastrointestinal: Nausea, Vomiting. absent: Abdominal Pain, Belching, Change in Bowel Habits, Change in Stool Character, Constipation, Diarrhea, Hematemesis , Hematochezia - Genitourinary Genitourinary: absent: Change in Urinary Stream, Dysuria, Hematuria - Musculoskeletal Musculoskeletal: Back Pain (chronic), Muscle Weakness, Numbness (chronic), Tingling (chronic) - Integumentary Integumentary: absent: Rash - Neurological Neurological: Numbness, Paresthesias, Tingling, Weakness - Psychiatric Psychiatric: Change in Appetite (decreased) Past Patient History - Infectious Disease Hx of Infectious Diseases: None - Tetanus Immunizations Tetanus Immunization: Up to Date - Past Social History Smoking Status: Never Smoked - CARDIAC Hx Cardiac Disorders: Yes Other/Comment: PALPITATIONS POST ORIF R HIP ONE EPISODE - PULMONARY Hx Chronic Obstructive Pulmonary Disease (COPD): Yes - NEUROLOGICAL Hx Neurological Disorder: No - HEENT Hx HEENT Problems: No - RENAL Hx Chronic Kidney Disease: No - ENDOCRINE/METABOLIC Hx Endocrine Disorders: No - HEMATOLOGICAL/ONCOLOGICAL Hx Blood Transfusions: No Hx Blood Transfusion Reaction: No - INTEGUMENTARY Hx Dermatological Problems: No - MUSCULOSKELETAL/RHEUMATOLOGICAL Hx Falls: Yes (@ HOME TODAY) - GASTROINTESTINAL Hx Gastrointestinal Disorders: Yes Other/Comment: CELIAC DISEASE - GENITOURINARY/GYNECOLOGICAL Hx Genitourinary Disorders: No - PSYCHIATRIC Hx Psychophysiologic Disorder: Yes Hx Anxiety: Yes Hx Bipolar Disorder: Yes Hx Panic Symptoms: Yes (PALPITATIONS) Hx Substance Use: No - SURGICAL HISTORY Hx Orthopedic Surgery: Yes (ORIF RIGHT HIP) - ANESTHESIA Hx Anesthesia Reactions: No Hx Malignant Hyperthermia: No Meds Allergies/Adverse Reactions: Allergies Allergy/AdvReac Type Severity Reaction Status Date / Time No Known Allergies Allergy Verified 06/03/14 15:21 - Medications Medications: Current Medications Sodium Chloride (Sodium Chloride 0.9%) 1,000 mls @ 100 mls/hr IV .Q10H [facility] Last Admin: 07/30/17 21:41 Dose: 100 mls/hr Ciprofloxacin (Cipro 400mg/200ml Dsw) 400 mg in 200 mls @ 133.3 mls/hr IVPB STAT STA PRN Reason: Protocol Stop: 07/31/17 01:48 Last Admin: 07/31/17 01:16 Dose: 133.3 mls/hr Physical Exam - Constitutional Appears: Non-toxic, No Acute Distress, Cachectic - Head Exam Head Exam: ATRAUMATIC, NORMAL INSPECTION, NORMOCEPHALIC - Eye Exam Eye Exam: EOMI, Normal appearance - ENT Exam ENT Exam: Mucous Membranes Moist, Normal Exam - Neck Exam Neck exam: Positive for: Full Rom. Negative for: Normal Inspection (dorsal kyphosis) - Respiratory Exam Respiratory Exam: Clear to Auscultation Bilateral, NORMAL BREATHING PATTERN. absent: Rales, Rhonchi, Wheezes, Respiratory Distress - Cardiovascular Exam Cardiovascular Exam: REGULAR RHYTHM, +S1, +S2 - GI/Abdominal Exam GI & Abdominal Exam: Hypoactive Bowel Sounds, Soft. absent: Distended, Firm, Guarding, Hernia, Rebound, Rigid, Tenderness Additional comments: grossly scaphoid abdomen - Extremities Exam Extremities exam: Negative for: normal inspection (internally rotated feet, cool to the touch), pedal edema, tenderness - Back Exam Additional comments: dorsal kyphosis - Neurological Exam Neurological exam: Alert, CN II-XII Intact, Oriented x3 - Psychiatric Exam Psychiatric exam: Normal Affect, Normal Mood - Skin Skin Exam: Dry, Intact, Normal Color, Warm Results - Vital Signs Recent Vital Signs: Last Vital Signs Temp 97.1 F L 07/30/17 21:19 Pulse 82 07/31/17 01:29 Resp 16 07/31/17 01:29 BP 148/82 07/31/17 01:29 Pulse Ox 100 07/31/17 01:29 - Labs Result Diagrams: 07/30/17 21:43 07/30/17 21:43 Assessment & Plan - Assessment and Plan (Free Text) Assessment: 72F w/PMH sig for celiac disease consulted for gallstone sludge- currently asymptomatic Plan: T bili 0.5 - WNL LFTs WNL Lipase 153 Recommend fluid resuscitation Recommend urology consult for evaluation of renal mass No general surgery intervention at this time Will PRAMOD attending Dannielle, PGY-1 - Date & Time Date: 07/31/17 Time: 01:30
--- NOTE | 2017-07-31 01:48 | US ---
EXAM: US Abdomen Limited, Right Upper Quadrant CLINICAL HISTORY: 72 years old, female; Pain; Abdominal pain; Generalized; Additional info: Cholecystitis? TECHNIQUE: Real-time ultrasound of the right upper quadrant with image documentation. COMPARISON: CT - ABD PELVIS IV CONTRAST ONLY 2017-07-30 23:03 FINDINGS: Liver: Unremarkable measuring 16.9 cm. No mass. No intrahepatic bile duct dilation. Gallbladder: The gallbladder is distended with sludge and stones. Common bile duct: Unremarkable as visualized measuring 7 mm. No stones. No dilation. Pancreas: The pancreas is poorly-visualized due to overlying bowel gas. Right kidney: Unremarkable measuring 10.8 cm. No stones. No solid mass. No hydronephrosis. IMPRESSION: Gallbladder sludge and stones.
--- NOTE | 2017-07-31 08:16 | RAD ---
HISTORY: medical clearance COMPARISON: 06/06/2014 FINDINGS: LUNGS: No active pulmonary disease. PLEURA: No significant pleural effusion identified, no pneumothorax apparent. CARDIOVASCULAR: Normal. OSSEOUS STRUCTURES: No significant abnormalities. VISUALIZED UPPER ABDOMEN: Normal. OTHER FINDINGS: None. IMPRESSION: No active disease.
[2017-07-31] MEDS: metroNIDAZOLE IV 250mg/50 ml 250 MG/50 ML BAG IVPB SCH ×3 (10:36→22:50)
--- NOTE | 2017-07-31 10:52 | CARD ---
APPROVED REPORT EKG Measurement Heart [id number] <Conclusion> Normal sinus rhythm LVH by voltage Prolonged QT C/W ECG 06/07/14: The T waves are now upright and there are no PVCs
[2017-07-31] MEDS ORDERED: GABAPENTIN 50 MG PO PRN (14:51)
[2017-07-31] MEDS: cefTRIAXone 1 gm 1 GM/100 ML BAG IVPB SCH (14:55)
[2017-07-31] MEDS: Levothyroxine 50 MCG TAB PO SCH (14:55)
[2017-07-31] MEDS ORDERED: DIAZEPAM 5 MG PO SCH (18:00)
--- NOTE | 2017-08-01 02:02 | HP ---
HISTORY OF PRESENT ILLNESS: Patient is 72 years old, a patient of Dr. Wang. Came to Emergency Room because of abdominal epigastric discomfort, complained of poor appetite that was going on for last few weeks, that discomfort got worse last night. So, her family member called ambulance and she was brought to Emergency Room, complained of feeling nauseous at times. She has not been eating that well. Pain radiates throughout the right shoulder and right lower abdomen. Patient initially thought that it could be because of her celiac. She has seen multiple specialists for that and was told to watch diet and to do exercise that she has been doing. However, she came for evaluation. HISTORY OF PRESENT ILLNESS: Significant for, 1. Hypertension. 2. COPD. 3. History of hip fracture. 4. Osteoporosis. 5. History of gastritis. ALLERGIES: SHE IS NOT ALLERGIC TO ANY MEDICATIONS. MEDICATIONS AT HOME: She is on Neurontin 50 mg three times a day, tramadol 50 mg t.i.d. p.r.n., aspirin 81 daily, levothyroxine 50 mcg daily, Zanaflex 4 mg at bedtime, potassium 10 mEq twice a day, Xyzal, diazepam, Seroquel 50 twice a day, Prozac 20 mg twice a day. SOCIAL HISTORY: She lives by herself. No history of smoking, drinking, or alcohol use. PHYSICAL EXAMINATION: GENERAL: She is pretty awake, alert, oriented, very bright, able to answer all questions. VITAL SIGNS: She is afebrile, pulse 98, respirations 18, blood pressure 127/93. LUNGS: Bilateral fair airflow. No rhonchi or crackle. HEART: S1 and S2 audible. ABDOMEN: Soft, slight epigastric discomfort. No rebound, no guarding. NEUROLOGICAL: She is awake, alert, oriented, communicative. EXTREMITIES: Bilateral leg, no edema. LABORATORY DATA: WBC is 15.6, hemoglobin 12, hematocrit 38, platelets of 414. Chemistry: Sodium 147, potassium 3.8, chloride 111, CO2 of 11, BUN 11, creatinine 0.5, blood sugar of 104. LFTs are within normal limits. Salicylate less than 1, acetaminophen less than 10, alcohol is less than 10. She has a gallbladder sonogram done that shows sludge and stone. She had CT scan of the abdomen and pelvis done that shows markedly distended gallbladder with biliary sludge and tiny stone. Also had dilated common bile duct and pancreatic duct. No distal common bile duct stone seen. She has left mid pole mass. Renal cell carcinoma cannot be excluded. ASSESSMENT: 1. Acute cholecystitis. 2. Cholelithiasis. 3. History of celiac disease. 4. Leukocytosis with poor oral intake. 5. Left mid pole renal mass, rule out renal cell carcinoma. 6. Osteoporosis. PLAN: We will start patient on clear liquid diet and start her on IV fluid. Continue on IV antibiotics. Dr. Hilton has been consulted. Surgical input is noted. Plan is to treat her conservatively. We will follow up her CBC and electrolytes in a.m. Morro Mir MD
[2017-08-01] MEDS: metroNIDAZOLE IV 250mg/50 ml 250 MG/50 ML BAG IVPB SCH ×3 (05:37→21:42)
[2017-08-01 06:56] LABS: BASO # 0.02 K/mm3 (0.0-2.0); BASO % 0.2 % (0.0-3.0); GRAN # 9.81 (1.4-6.5); GRAN % 83.4 % (50.0-68.0); LYMPH # 1.5 (1.2-3.4); MEAN CELL VOLUME 78.8 fl (80.0-105.0); MEAN CORPUSCULAR HEMOGLOBIN 25.8 pg (25.0-35.0); MEAN CORPUSCULAR HGB CONC 32.7 g/dl (31.0-37.0); MEAN PLATELET VOLUME 10.8 fl (7.0-11.0); MONO # 0.4 (0.1-0.6); MONO % 3.4 % (1.0-6.0); RED CELL DISTRIBUTION WIDTH 17.4 % (11.5-14.5); WHITE BLOOD COUNT 11.8 10^3/ul (4.5-11.0)
[2017-08-01 07:16] LABS: ALB/GLOB RATIO 1.5 (1.1-1.8); ALBUMIN 3.9 g/dL (3.0-4.8); ALT/SGPT 24 U/L (7-56); AST/SGOT 21 U/L (14-36); BLOOD UREA NITROGEN 11 mg/dL (7-21); CALCIUM 8.5 mg/dL (8.4-10.5); GFR AFRICAN-AMERICAN > 60; GFR NON-AFRICAN AMERICAN > 60
[2017-08-01 07:18] LABS: HEMOGLOBIN 10.3 g/dL (12.0-16.0)
[2017-08-01] MEDS ORDERED: Midazolam 2 MG/2 ML VIAL ONE (09:04)
[2017-08-01] MEDS ORDERED: Propofol 10 mg/ml 1,000 MG/100 ML VIAL ONE (09:06)
[2017-08-01] MEDS ORDERED: Morphine 2 mg/ml ISec IVP PRN (09:32)
[2017-08-01] MEDS ORDERED: Magnesium Oxide 400 mg Tab UD PO STA (09:32)
--- NOTE | 2017-08-01 10:00 | RAD ---
HISTORY: rapid response COMPARISON: 07/30/2017 FINDINGS: LUNGS: The patient is rotated to the right side. The endotracheal tube is in satisfactory position PLEURA: No significant pleural effusion identified, no pneumothorax apparent. CARDIOVASCULAR: Normal. OSSEOUS STRUCTURES: No significant abnormalities. VISUALIZED UPPER ABDOMEN: Normal. OTHER FINDINGS: None. IMPRESSION: Endotracheal tube in satisfactory position
--- NOTE | 2017-08-01 10:06 | PN ---
DATE: 08/01/2017 SUBJECTIVE: A 72-year-old white female with long history of peripheral neuropathy of unknown origin, celiac disease, failure to thrive, severe osteoporosis with kyphoscoliosis. The patient admitted to the hospital with elevated fever, nausea and vomiting, right upper quadrant pain, back pain, shoulder pain. The patient was found to have slightly dilated common bile duct with sludge and sediment in the gallbladder without evidence of stone. The patient was also found to have renal mass which is being evaluated by Dr. Hilton. The patient was seen in consultation by Dr. Kennedy. At this point, she is on IV Flagyl and Rocephin. PHYSICAL EXAMINATION VITAL SIGNS: She is afebrile. Temperature 99.2, blood pressure 124/82. GENERAL: The patient is awake, alert, oriented x3. ABDOMEN: Soft, but thin. The patient is malnourished. Has been in this weight for some time. LABORATORY DATA: Potassium today was 2.9. ASSESSMENT AND PLAN: Potassium is being repleted today and she will have some evaluation for her kidneys. She is going to start a full liquid diet and continue her Flagyl and Rocephin and be followed eventually as an outpatient. Geoffrey Wang MD
[2017-08-01 10:23] LABS: ARTERIAL BLOOD GAS HCO3 10.5 mmol/L (21-28); ARTERIAL BLOOD GAS HEMOGLOBIN 9.4 g/dL (11.7-17.4); ARTERIAL BLOOD GAS O2 CAPACITY 13.5 mL/dl (16-24); ARTERIAL BLOOD GAS O2 CONTENT 13.5 ML/dl (15-23); ARTERIAL BLOOD GAS O2 SAT 100.2 % (95-98); ARTERIAL BLOOD GAS PCO2 25 mm/Hg (35-45); ARTERIAL BLOOD GAS PH 7.23 (7.35-7.45); ARTERIAL BLOOD GAS TCO2 11.3 mmol.L (22-28)
[2017-08-01 10:56] LABS: BASO # 0.04 K/mm3 (0.0-2.0); BASO % 0.2 % (0.0-3.0); GRAN # 15.62 (1.4-6.5); GRAN % 88.2 % (50.0-68.0); HEMOGLOBIN 10.2 g/dL (12.0-16.0); LYMPH # 0.9 (1.2-3.4); LYMPH % 4.9 % (22.0-35.0); MEAN CELL VOLUME 79.8 fl (80.0-105.0); MEAN CORPUSCULAR HEMOGLOBIN 25.8 pg (25.0-35.0); MEAN CORPUSCULAR HGB CONC 32.3 g/dl (31.0-37.0); MEAN PLATELET VOLUME 11.1 fl (7.0-11.0); MONO # 1.2 (0.1-0.6); MONO % 6.7 % (1.0-6.0); RBC 3.96 10^6/uL (3.5-6.1); RED CELL DISTRIBUTION WIDTH 17.4 % (11.5-14.5); WHITE BLOOD COUNT 17.7 10^3/ul (4.5-11.0)
--- NOTE | 2017-08-01 10:56 | PCM.RRT ---
<Leanna Wilkins - Last Filed: 08/01/17 12:34> STONER HAND Nurse Assessment - Situation Date: 08/01/17 I.Reason for STONER HAND - A) Acute Change in Patient: (Select all that apply): Acute change in mental status - Neurological Status (Select all that apply): absent: Alert, Oriented, Verbal, Follows Commands - Respiratory Oxygen Delivery Method: Non Rebreather @% - Constitutional Appears: In Acute Distress - Eyes Eye Exam: absent: EOMI - Respiratory Exam Respiratory Exam: Clear to Ausculation Bilateral, Respiratory Distress. absent : Rales, Rhonchi, Wheezes - Cardiovascular Exam Cardiovascular Exam: Tachycardia, REGULAR RHYTHM - Neurological Exam Neurological Exam: Altered. absent: Alert, Oriented x3 Plan - Assessment of Findings&Treatment Plan 72 yo female with PMH of HTN, COPD initially presented for abd pain, and poor appetite has STONER HAND called for agonal breathing and AMS. Patient was eating liquid breakfast when she became altered, was at bedside. Patient was minimally responsive, with agonal breathing. Vital signs reviewed, IVF bolus was started. RT placed patient on non-breather, SpO2 was 100%. Chart was reviewed. Patient continued to agonal breathing was was not responding to verbal stimuli. Intubation procedure was stared and ICU attending was notified. Patient was give sedation and bag ventilation was started. She was transferred to ICU with cardiac monitoring and bag ventilation. While in ICU patient was intubated and cxr ordered. ABG, troponin as well as Head CT were ordered. Primary attending notified. at bedside aware of events. <LatriceJovonyamilamatt - Last Filed: 08/01/17 18:38> Attending/Attestation - Attestation I have personally seen and examined this patient.: Yes I have fully participated in the care of the patient.: Yes I have reviewed all pertinent clinical information, including history, physical exam and plan: Yes Notes (Text): 08/01/17 18:37 attending note; Patient seen and examined during rapid response. patient is awake. Not following commands. Increased respiratory rate. Vitals stable. Patient was paced on nonrebreather. Patient was evaluated by Mammography Tech. Patient will be transferred to ICU for possible intubation. Routine lab work, CT head, troponins ordered. Case discussed with PMD Dr. newton in detail. Patient's by the bedside. Condition updated. further care by PMD.
[2017-08-01] MEDS: Levothyroxine 50 MCG TAB PO SCH (11:00)
[2017-08-01 11:17] LABS: INR 1.23 (0.93-1.08); PARTIAL THROMBOPLASTIN TIME 25.2 Seconds (25.1-36.5); PROTHROMBIN TIME 14.2 SECONDS (9.4-12.5)
[2017-08-01] MEDS ORDERED: Vancomycin 1gm in NS 250ml 1 GM/250 ML BAG IVPB STA (11:21)
[2017-08-01] MEDS: Propofol 10 mg/ml 1,000 MG/100 ML VIAL IV PRN ×2 (11:23→20:00)
--- NOTE | 2017-08-01 11:26 | CARD ---
APPROVED REPORT EKG Measurement Heart [id number] <Conclusion> Normal sinus rhythm Nonspecific ST and T wave abnormality Abnormal ECG
[2017-08-01 11:34] LABS: BLOOD UREA NITROGEN 11 mg/dL (7-21); CALCIUM 8.2 mg/dL (8.4-10.5); GFR AFRICAN-AMERICAN > 60; GFR NON-AFRICAN AMERICAN > 60
[2017-08-01 11:35] LABS: ALB/GLOB RATIO 1.4 (1.1-1.8); ALT/SGPT 34 U/L (7-56); AST/SGOT 34 U/L (14-36)
[2017-08-01 11:42] LABS: VENOUS BLOOD GAS BASE EXCESS -14.4 mmol/L (0.0-2.0); VENOUS BLOOD GAS PO2 55 mm/Hg (30-55)
[2017-08-01 11:45] LABS: VENOUS BLOOD PH 7.13 (7.32-7.43)
--- NOTE | 2017-08-01 12:26 | RAD ---
HISTORY: NGT COMPARISON: Earlier same day FINDINGS: LUNGS: No active pulmonary disease. PLEURA: No significant pleural effusion identified, no pneumothorax apparent. CARDIOVASCULAR: Normal. OSSEOUS STRUCTURES: No significant abnormalities. VISUALIZED UPPER ABDOMEN: Normal. OTHER FINDINGS: The patient is severely rotated. IMPRESSION: Endotracheal and nasogastric tube in satisfactory position
[2017-08-01] MEDS ORDERED: Potassium Chloride 40 mEq/30 ml LIQ UD PO ONE ×2 (12:37→14:55)
--- NOTE | 2017-08-01 12:41 | CP.CCUPN ---
CCU Subjective - Physician Review Events Since Last Encounter (Free Text): 08/01/17 12:38 Procedure Note: Intubation 72yo female pt , became unresponsive. 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 Pts mental status and ability to protect the airway have worsened this morning. Pt needs emergent intubation for airway protection. Pt was transferred to ICU while being ventilated using bag-mask Pt was sedated with propofol. Using Mac 3 and DL I visualized the airway. Secretions were noted in posterior upper airway and were suctioned. A size 8 ETT was then inserted through the pt's vocal cords. ETT placement was confirmed with color capnography and auscultation. ETT was secured at 21cm lipline and pt was connected to the vent. CCU Objective - Vital Signs / Intake & Output Intake and Output (Last 8hrs): Intake & Output 07/31/17 08/01/17 08/01/17 22:59 06:59 14:59 Intake Total 0 Balance 0 Intake: Oral 0 Other: # Voids Urine, Voided 1 # Bowel Movements 0 - Physical Exam Head: Positive for: Atraumatic, Normocephalic Pupils: Positive for: PERRL Extroacular Muscles: Positive for: EOMI Conjunctiva: Positive for: Normal Mouth: Positive for: Moist Mucous Membranes Neck: Positive for: Normal Range of Motion Respiratory/Chest: Positive for: Clear to Auscultation, Good Air Exchange. Negative for: Respiratory Distress, Accessory Muscle Use Cardiovascular: Positive for: Regular Rate and Rhythm, Normal S1, S2. Negative for: Murmurs Abdomen: Positive for: Tenderness (periumbilical and epigastric tenderness). Negative for: Distention, Peritoneal Signs, Rebound, Guarding Back: Positive for: Normal Inspection. Negative for: CVA Tenderness, Midline Tenderness Upper Extremity: Positive for: Normal Inspection. Negative for: Cyanosis, Edema Lower Extremity: Positive for: Normal Inspection. Negative for: Edema Neurological: Positive for: GCS=15, CN II-XII Intact, Speech Normal, Motor Func Grossly Intact, Memory Normal Skin: Positive for: Warm, Dry, Normal Color. Negative for: Rashes Psychiatric: Positive for: Alert, Oriented x 3, Normal Insight, Normal Concentration - Medications Active Medications: Active Medications Generic Name Dose Route Start Last Admin Trade Name Freq PRN Reason Stop Dose Admin Acetaminophen 650 mg 07/31/17 03:22 07/31/17 10:47 Tylenol 325mg Tab PO 650 mg Q6H PRN Administration Headache Diazepam 5 mg 07/31/17 18:00 07/31/17 18:09 Valium PO 5 mg BID ELODIA Administration Fluoxetine HCl 20 mg 07/31/17 18:00 07/31/17 18:10 Prozac PO 20 mg BID ELODIA Administration Home Med 1 unit 07/31/17 14:51 Home Med PO TID PRN NEUROPATHY Metronidazole 250 mg in 50 mls @ 100 mls/hr 07/31/17 10:00 08/01/17 05:37 Flagyl IVPB 08/05/17 10:01 100 mls/hr Q8 ELODIA Administration Protocol Ceftriaxone Sodium 1 gm in 100 mls @ 100 mls/hr 07/31/17 10:00 07/31/17 14:55 Rocephin 1 Gram Ivpb IVPB 100 mls/hr DAILY ELODIA Administration Protocol Propofol 1,000 mg in 100 mls @ 1.361 mls/hr 08/01/17 09:32 Diprivan IV .Q24H PRN TITRATE PER MD ORDER Protocol 5 MCG/KG/MIN Vancomycin HCl 1 gm in 250 mls @ 167 mls/hr 08/01/17 11:21 Vancomycin 1gm IVPB 08/01/17 12:50 STAT STA Protocol Magnesium Sulfate/Dextrose 1 gm in 100 mls @ 100 mls/hr 08/01/17 12:00 Magnesium Sulfate 1 Gm/100 Ml D5w IVPB 08/01/17 13:59 Q1H ELODIA Levothyroxine Sodium 50 mcg 07/31/17 14:45 07/31/17 14:55 Synthroid PO 50 mcg DAILY ELODIA Administration Lorazepam 2 mg 08/01/17 12:36 Ativan IVP Q6H PRN Anxiety Protocol Morphine Sulfate 2 mg 08/01/17 09:32 Morphine IVP Q4H PRN Pain, severe (8-10) Ondansetron HCl 4 mg 07/31/17 10:01 Zofran Inj IVP Q6H PRN Nausea/Vomiting Potassium Chloride 40 meq 08/01/17 12:37 Potassium Chloride Oral Soln PO 08/01/17 12:38 ONCE ONE Quetiapine Fumarate 50 mg 07/31/17 22:00 07/31/17 22:50 Seroquel PO 50 mg HS ELODIA Administration - Patient Studies Lab Studies: Microbiology Studies 07/31/17 10:00 Blood Culture - Preliminary Blood-Venous NO GROWTH AFTER 24 HOURS 07/31/17 10:35 Blood Culture - Preliminary Blood-Venous NO GROWTH AFTER 24 HOURS Lab Studies 08/01/17 08/01/17 08/01/17 Range/Units 10:30 10:30 10:30 WBC 17.7 H D (4.5-11.0) 10^3/ul RBC 3.96 (3.5-6.1) 10^6/uL Hgb 10.2 L (12.0-16.0) g/dL Hct 31.6 L (36.0-48.0) % MCV 79.8 L (80.0-105.0) fl MCH 25.8 (25.0-35.0) pg MCHC 32.3 (31.0-37.0) g/dl RDW 17.4 H (11.5-14.5) % Plt Count 413 (120.0-450.0) 10^3/uL MPV 11.1 H (7.0-11.0) fl Gran % 88.2 H (50.0-68.0) % Lymph % (Auto) 4.9 L (22.0-35.0) % Luna % (Auto) 6.7 H (1.0-6.0) % Eos % (Auto) 0.0 L (1.5-5.0) % Baso % (Auto) 0.2 (0.0-3.0) % Gran # 15.62 H (1.4-6.5) Lymph # (Auto) 0.9 L (1.2-3.4) Luna # (Auto) 1.2 H (0.1-0.6) Eos # (Auto) 0.0 (0.0-0.7) Baso # (Auto) 0.04 (0.0-2.0) K/mm3 PT 14.2 H (9.4-12.5) SECONDS INR 1.23 H (0.93-1.08) APTT 25.2 (25.1-36.5) Seconds pCO2 (35-45) mm/Hg pO2 55 (80-100) mm/Hg HCO3 (21-28) mmol/L ABG pH (7.35-7.45) ABG Total CO2 (22-28) mmol.L ABG O2 Saturation (95-98) % ABG O2 Content (15-23) ML/dl ABG Base Excess (-2.0-3.0) mmol/L ABG Hemoglobin (11.7-17.4) g/dL ABG Carboxyhemoglobin (0.5-1.5) % POC ABG HHb (Measured) (0-5) % ABG Methemoglobin (0.0-3.0) % ABG O2 Capacity (16-24) mL/dl VBG pH 7.13 L* (7.32-7.43) VBG pCO2 43.0 (40-60) VBG HCO3 14.3 L (21-28) mmol/l VBG Total CO2 15.6 L (22-28) mmol.L VBG O2 Sat (Calc) 89.5 H (40-65) % VBG Base Excess -14.4 L (0.0-2.0) mmol/L VBG Potassium 2.7 L (3.6-5.2) mmol/L Hgb O2 Saturation (95.0-98.0) % Glucose 127 H (65-105) mg/dl Lactate 1.4 (0.7-2.1) mmol/L FiO2 21.0 % Sodium 147.0 (132-148) mmol/L Potassium (3.6-5.0) mmol/L Chloride 116.0 H (98-107) mmol/L Carbon Dioxide (21-33) mmol/L Anion Gap (10-20) BUN (7-21) mg/dL Creatinine (0.7-1.2) mg/dl Est GFR ( Amer) Est GFR (Non-Af Amer) POC Glucose (mg/dL) (65-110) mg/dL Random Glucose (70-110) mg/dL Calcium (8.4-10.5) mg/dL Total Bilirubin (0.2-1.3) mg/dL AST (14-36) U/L ALT (7-56) U/L Alkaline Phosphatase (38-126) U/L Total Protein (5.8-8.3) g/dL Albumin (3.0-4.8) g/dL Globulin gm/dL Albumin/Globulin Ratio (1.1-1.8) Venous Blood Potassium 2.7 L (3.6-5.2) mmol/L 08/01/17 08/01/17 08/01/17 Range/Units 10:30 10:20 08:53 WBC (4.5-11.0) 10^3/ul RBC (3.5-6.1) 10^6/uL Hgb (12.0-16.0) g/dL Hct (36.0-48.0) % MCV (80.0-105.0) fl MCH (25.0-35.0) pg MCHC (31.0-37.0) g/dl RDW (11.5-14.5) % Plt Count (120.0-450.0) 10^3/uL MPV (7.0-11.0) fl Gran % (50.0-68.0) % Lymph % (Auto) (22.0-35.0) % Luna % (Auto) (1.0-6.0) % Eos % (Auto) (1.5-5.0) % Baso % (Auto) (0.0-3.0) % Gran # (1.4-6.5) Lymph # (Auto) (1.2-3.4) Luna # (Auto) (0.1-0.6) Eos # (Auto) (0.0-0.7) Baso # (Auto) (0.0-2.0) K/mm3 PT (9.4-12.5) SECONDS INR (0.93-1.08) APTT (25.1-36.5) Seconds pCO2 25 L (35-45) mm/Hg pO2 234.0 H (80-100) mm/Hg HCO3 10.5 L (21-28) mmol/L ABG pH 7.23 L (7.35-7.45) ABG Total CO2 11.3 L (22-28) mmol.L ABG O2 Saturation 100.2 H (95-98) % ABG O2 Content 13.5 L (15-23) ML/dl ABG Base Excess -15.5 L (-2.0-3.0) mmol/L ABG Hemoglobin 9.4 L (11.7-17.4) g/dL ABG Carboxyhemoglobin 1.4 (0.5-1.5) % POC ABG HHb (Measured) -0.2 L (0-5) % ABG Methemoglobin 1.1 (0.0-3.0) % ABG O2 Capacity 13.5 L (16-24) mL/dl VBG pH (7.32-7.43) VBG pCO2 (40-60) VBG HCO3 (21-28) mmol/l VBG Total CO2 (22-28) mmol.L VBG O2 Sat (Calc) (40-65) % VBG Base Excess (0.0-2.0) mmol/L VBG Potassium (3.6-5.2) mmol/L Hgb O2 Saturation 97.7 (95.0-98.0) % Glucose (65-105) mg/dl Lactate (0.7-2.1) mmol/L FiO2 60.0 % Sodium 149 H (132-148) mmol/L Potassium 2.5 L* (3.6-5.0) mmol/L Chloride 118 H (98-107) mmol/L Carbon Dioxide 11 L (21-33) mmol/L Anion Gap 23 H (10-20) BUN 11 (7-21) mg/dL Creatinine 0.6 L (0.7-1.2) mg/dl Est GFR ( Amer) > 60 Est GFR (Non-Af Amer) > 60 POC Glucose (mg/dL) 120 H (65-110) mg/dL Random Glucose 133 H (70-110) mg/dL Calcium 8.2 L (8.4-10.5) mg/dL Total Bilirubin 0.5 (0.2-1.3) mg/dL AST 34 (14-36) U/L ALT 34 (7-56) U/L Alkaline Phosphatase 62 (38-126) U/L Total Protein 6.7 (5.8-8.3) g/dL Albumin 4.0 (3.0-4.8) g/dL Globulin 2.8 gm/dL Albumin/Globulin Ratio 1.4 (1.1-1.8) Venous Blood Potassium (3.6-5.2) mmol/L 08/01/17 08/01/17 Range/Units 06:20 06:20 WBC 11.8 H D (4.5-11.0) 10^3/ul RBC 4.00 (3.5-6.1) 10^6/uL Hgb 10.3 L D (12.0-16.0) g/dL Hct 31.5 L (36.0-48.0) % MCV 78.8 L (80.0-105.0) fl MCH 25.8 (25.0-35.0) pg MCHC 32.7 (31.0-37.0) g/dl RDW 17.4 H (11.5-14.5) % Plt Count 366 (120.0-450.0) 10^3/uL MPV 10.8 (7.0-11.0) fl Gran % 83.4 H (50.0-68.0) % Lymph % (Auto) 13.0 L (22.0-35.0) % Luna % (Auto) 3.4 (1.0-6.0) % Eos % (Auto) 0.0 L (1.5-5.0) % Baso % (Auto) 0.2 (0.0-3.0) % Gran # 9.81 H (1.4-6.5) Lymph # (Auto) 1.5 (1.2-3.4) Luna # (Auto) 0.4 (0.1-0.6) Eos # (Auto) 0.0 (0.0-0.7) Baso # (Auto) 0.02 (0.0-2.0) K/mm3 PT (9.4-12.5) SECONDS INR (0.93-1.08) APTT (25.1-36.5) Seconds pCO2 (35-45) mm/Hg pO2 (80-100) mm/Hg HCO3 (21-28) mmol/L ABG pH (7.35-7.45) ABG Total CO2 (22-28) mmol.L ABG O2 Saturation (95-98) % ABG O2 Content (15-23) ML/dl ABG Base Excess (-2.0-3.0) mmol/L ABG Hemoglobin (11.7-17.4) g/dL ABG Carboxyhemoglobin (0.5-1.5) % POC ABG HHb (Measured) (0-5) % ABG Methemoglobin (0.0-3.0) % ABG O2 Capacity (16-24) mL/dl VBG pH (7.32-7.43) VBG pCO2 (40-60) VBG HCO3 (21-28) mmol/l VBG Total CO2 (22-28) mmol.L VBG O2 Sat (Calc) (40-65) % VBG Base Excess (0.0-2.0) mmol/L VBG Potassium (3.6-5.2) mmol/L Hgb O2 Saturation (95.0-98.0) % Glucose (65-105) mg/dl Lactate (0.7-2.1) mmol/L FiO2 % Sodium 149 H (132-148) mmol/L Potassium 2.9 L* D (3.6-5.0) mmol/L Chloride 118 H (98-107) mmol/L Carbon Dioxide 14 L (21-33) mmol/L Anion Gap 19 (10-20) BUN 11 (7-21) mg/dL Creatinine 0.6 L (0.7-1.2) mg/dl Est GFR ( Amer) > 60 Est GFR (Non-Af Amer) > 60 POC Glucose (mg/dL) (65-110) mg/dL Random Glucose 100 (70-110) mg/dL Calcium 8.5 (8.4-10.5) mg/dL Total Bilirubin 0.4 (0.2-1.3) mg/dL AST 21 (14-36) U/L ALT 24 (7-56) U/L Alkaline Phosphatase 55 (38-126) U/L Total Protein 6.6 (5.8-8.3) g/dL Albumin 3.9 (3.0-4.8) g/dL Globulin 2.7 gm/dL Albumin/Globulin Ratio 1.5 (1.1-1.8) Venous Blood Potassium (3.6-5.2) mmol/L Laboratory Results - last 24 hr 08/01/17 08/01/17 08/01/17 06:20 06:20 08:53 WBC 11.8 H D RBC 4.00 Hgb 10.3 L D Hct 31.5 L MCV 78.8 L MCH 25.8 MCHC 32.7 RDW 17.4 H Plt Count 366 MPV 10.8 Gran % 83.4 H Lymph % (Auto) 13.0 L Luna % (Auto) 3.4 Eos % (Auto) 0.0 L Baso % (Auto) 0.2 Gran # 9.81 H Lymph # (Auto) 1.5 Luna # (Auto) 0.4 Eos # (Auto) 0.0 Baso # (Auto) 0.02 PT INR APTT pCO2 pO2 HCO3 ABG pH ABG Total CO2 ABG O2 Saturation ABG O2 Content ABG Base Excess ABG Hemoglobin ABG Carboxyhemoglobin POC ABG HHb (Measured) ABG Methemoglobin ABG O2 Capacity VBG pH VBG pCO2 VBG HCO3 VBG Total CO2 VBG O2 Sat (Calc) VBG Base Excess VBG Potassium Hgb O2 Saturation Glucose Lactate FiO2 Sodium 149 H Potassium 2.9 L* D Chloride 118 H Carbon Dioxide 14 L Anion Gap 19 BUN 11 Creatinine 0.6 L Est GFR ( Amer) > 60 Est GFR (Non-Af Amer) > 60 POC Glucose (mg/dL) 120 H Random Glucose 100 Calcium 8.5 Total Bilirubin 0.4 AST 21 ALT 24 Alkaline Phosphatase 55 Total Protein 6.6 Albumin 3.9 Globulin 2.7 Albumin/Globulin Ratio 1.5 Venous Blood Potassium 08/01/17 08/01/17 08/01/17 10:20 10:30 10:30 WBC RBC Hgb Hct MCV MCH MCHC RDW Plt Count MPV Gran % Lymph % (Auto) Luna % (Auto) Eos % (Auto) Baso % (Auto) Gran # Lymph # (Auto) Luna # (Auto) Eos # (Auto) Baso # (Auto) PT INR APTT pCO2 25 L pO2 234.0 H 55 HCO3 10.5 L ABG pH 7.23 L ABG Total CO2 11.3 L ABG O2 Saturation 100.2 H ABG O2 Content 13.5 L ABG Base Excess -15.5 L ABG Hemoglobin 9.4 L ABG Carboxyhemoglobin 1.4 POC ABG HHb (Measured) -0.2 L ABG Methemoglobin 1.1 ABG O2 Capacity 13.5 L VBG pH 7.13 L* VBG pCO2 43.0 VBG HCO3 14.3 L VBG Total CO2 15.6 L VBG O2 Sat (Calc) 89.5 H VBG Base Excess -14.4 L VBG Potassium 2.7 L Hgb O2 Saturation 97.7 Glucose 127 H Lactate 1.4 FiO2 60.0 21.0 Sodium 149 H 147.0 Potassium 2.5 L* Chloride 118 H 116.0 H Carbon Dioxide 11 L Anion Gap 23 H BUN 11 Creatinine 0.6 L Est GFR ( Amer) > 60 Est GFR (Non-Af Amer) > 60 POC Glucose (mg/dL) Random Glucose 133 H Calcium 8.2 L Total Bilirubin 0.5 AST 34 ALT 34 Alkaline Phosphatase 62 Total Protein 6.7 Albumin 4.0 Globulin 2.8 Albumin/Globulin Ratio 1.4 Venous Blood Potassium 2.7 L 08/01/17 08/01/17 10:30 10:30 WBC 17.7 H D RBC 3.96 Hgb 10.2 L Hct 31.6 L MCV 79.8 L MCH 25.8 MCHC 32.3 RDW 17.4 H Plt Count 413 MPV 11.1 H Gran % 88.2 H Lymph % (Auto) 4.9 L Luna % (Auto) 6.7 H Eos % (Auto) 0.0 L Baso % (Auto) 0.2 Gran # 15.62 H Lymph # (Auto) 0.9 L Luna # (Auto) 1.2 H Eos # (Auto) 0.0 Baso # (Auto) 0.04 PT 14.2 H INR 1.23 H APTT 25.2 pCO2 pO2 HCO3 ABG pH ABG Total CO2 ABG O2 Saturation ABG O2 Content ABG Base Excess ABG Hemoglobin ABG Carboxyhemoglobin POC ABG HHb (Measured) ABG Methemoglobin ABG O2 Capacity VBG pH VBG pCO2 VBG HCO3 VBG Total CO2 VBG O2 Sat (Calc) VBG Base Excess VBG Potassium Hgb O2 Saturation Glucose Lactate FiO2 Sodium Potassium Chloride Carbon Dioxide Anion Gap BUN Creatinine Est GFR ( Amer) Est GFR (Non-Af Amer) POC Glucose (mg/dL) Random Glucose Calcium Total Bilirubin AST ALT Alkaline Phosphatase Total Protein Albumin Globulin Albumin/Globulin Ratio Venous Blood Potassium EKG/Cardiology Studies: Cardiology / EKG Studies 08/01/17 09:33 ELECTROCARDIOGRAM Stat Comment: 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
--- NOTE | 2017-08-01 12:48 | CT ---
PROCEDURE: CT HEAD WITHOUT CONTRAST. HISTORY: acute onset of headache COMPARISON: None available. TECHNIQUE: Axial computed tomography images were obtained through the head/brain without intravenous contrast. Radiation dose: Total exam DLP = 1017 mGy-cm. This CT exam was performed using one or more of the following dose reduction techniques: Automated exposure control, adjustment of the mA and/or kV according to patient size, and/or use of iterative reconstruction technique. FINDINGS: HEMORRHAGE: No intracranial hemorrhage. BRAIN: No mass effect or edema. There is moderate atrophy. Mild microvascular changes are seen. VENTRICLES: Unremarkable. No hydrocephalus. CALVARIUM: Unremarkable. PARANASAL SINUSES: Unremarkable as visualized. No significant inflammatory changes. MASTOID AIR CELLS: Unremarkable as visualized. No inflammatory changes. OTHER FINDINGS: None. IMPRESSION: No acute findings
--- NOTE | 2017-08-01 13:12 | CP.PCM.CON ---
<Magaly Bustillos - Last Filed: 08/01/17 13:35> History of Present Illness - History of Present Illness History of Present Illness: PGY-[address] Gtz ICU Consult: AMS, agonal breathing Davida Centeno, 72 F, came to emergency [facility] on 07/31 for epigastric and RUQ abdominal pain radiating to back and shoulder, and poor PO intake, associated with nausea. Tmax 102.9 at home. Pt described emesis as (nb, phlegm) x 6-8 daily. Pt reports having similar episodes previously, usually associated with food getting stuck in her throat or post nasal drip. In ED Afebrile. Leukocytosis of 15.6. INR 1.23. Trops 0.04. BNP 484. Lactate 1.1. Lipase, amylase normal. BUN/Cre 11/0.5 - CT ab w/Markedly distended gallbladder with layering sludge or tiny stones.Mildly dilated common bile duct and pancreatic duct. No distal common bile duct stone or periampullary mass. Left midpole renal mass. Renal cell carcinoma is not excluded. - Abd U/S: CBD 7mm. No stone. No dilation No plan for surgery, on flagyl and rocephin. Dr Hilton, urologist, was consulted for renal mass. Today, Pt started liquid diet. Per , pt was drinking apple juice and having pleasant conversation with him. Suddenly, pt complained feeling "dizzy". observed that pt rolled her eyes back and collpased into her bed. [employer] SOCIAL WORKER was called. Patient was minimally responsive, with agonal breathing. Pt was ventilated via bag-valve mask on non-rebreather. Pt was transferred to ICU and intubated. PMD. Dr Wang PMH HTN COPD Celiac disease, Hx gastritits Peripheral neuropathy, Hx hip fracture Severe Osteoporosis with kyphoscoliosis. Hx broken back PSH B/L hip sx SH No hx smoke, drink, drug All NKDA, gluten Med Neutrontin 50 TID, zanadlex 4 HS tramadol 50 TID prn ASA 81 levothyroxin 50 Potassium Xyzal, diazepam, seroquel 50 bid, prozac 20 bid Review of Systems - Review of Systems Systems not reviewed;Unavailable: Acuity of Condition, Altered Mental Status Past Patient History - Infectious Disease Hx of Infectious Diseases: None - Tetanus Immunizations Tetanus Immunization: Up to Date - Past Social History Smoking Status: Never Smoked - CARDIAC Hx Hypertension: Yes - PULMONARY Hx Chronic Obstructive Pulmonary Disease (COPD): Yes - NEUROLOGICAL Hx Neurological Disorder: No - HEENT Hx HEENT Problems: No - RENAL Hx Chronic Kidney Disease: No - ENDOCRINE/METABOLIC Hx Endocrine Disorders: No - HEMATOLOGICAL/ONCOLOGICAL Hx Blood Disorders: No - INTEGUMENTARY Hx Dermatological Problems: No - MUSCULOSKELETAL/RHEUMATOLOGICAL Hx Falls: Yes - GASTROINTESTINAL Hx Gastrointestinal Disorders: Yes Other/Comment: CELIAC DISEASE - GENITOURINARY/GYNECOLOGICAL Hx Genitourinary Disorders: No - PSYCHIATRIC Hx Psychophysiologic Disorder: Yes Hx Anxiety: Yes Hx Bipolar Disorder: Yes Hx Panic Symptoms: Yes (PALPITATIONS) - SURGICAL HISTORY Hx Orthopedic Surgery: Yes (ORIF RIGHT HIP AND LEFT HIP) - ANESTHESIA Hx Anesthesia Reactions: No Hx Malignant Hyperthermia: No Meds Allergies/Adverse Reactions: Allergies Allergy/AdvReac Type Severity Reaction Status Date / Time No Known Allergies Allergy Verified 06/03/14 15:21 - Medications Medications: Current Medications Acetaminophen (Tylenol 325mg Tab) 650 mg PO Q6H PRN PRN Reason: Headache Last Admin: 07/31/17 10:47 Dose: 650 mg Diazepam (Valium) 5 mg PO BID [facility] Last Admin: 07/31/17 18:09 Dose: 5 mg Fluoxetine HCl (Prozac) 20 mg PO BID [facility] Last Admin: 08/01/17 12:26 Dose: Not Given Home Med (Home Med) 1 unit PO TID PRN PRN Reason: NEUROPATHY Metronidazole (Flagyl) 250 mg in 50 mls @ 100 mls/hr IVPB Q8 [facility] PRN Reason: Protocol Stop: 08/05/17 10:01 Last Admin: 08/01/17 05:37 Dose: 100 mls/hr Ceftriaxone Sodium (Rocephin 1 Gram Ivpb) 1 gm in 100 mls @ 100 mls/hr IVPB DAILY [facility] PRN Reason: Protocol Last Admin: 07/31/17 14:55 Dose: 100 mls/hr Propofol (Diprivan) 1,000 mg in 100 mls @ 1.361 mls/hr IV .Q24H PRN; Protocol; 5 MCG/KG/MIN PRN Reason: TITRATE PER MD ORDER Last Admin: 08/01/17 11:23 Dose: 5 mcg/kg/min, 1.361 mls/hr Magnesium Sulfate/Dextrose (Magnesium Sulfate 1 Gm/100 Ml D5w) 1 gm in 100 mls @ 100 mls/hr IVPB Q1H [facility] Stop: 08/01/17 13:59 Levothyroxine Sodium (Synthroid) 50 mcg PO DAILY [facility] Last Admin: 07/31/17 14:55 Dose: 50 mcg Lorazepam (Ativan) 2 mg IVP Q6H PRN; Protocol PRN Reason: Anxiety Morphine Sulfate (Morphine) 2 mg IVP Q4H PRN PRN Reason: Pain, severe (8-10) Ondansetron HCl (Zofran Inj) 4 mg IVP Q6H PRN PRN Reason: Nausea/Vomiting Quetiapine Fumarate (Seroquel) 50 mg PO HS [facility] Last Admin: 07/31/17 22:50 Dose: 50 mg Physical Exam - Constitutional Additional comments: intubated - Head Exam Head Exam: ATRAUMATIC, NORMAL INSPECTION, NORMOCEPHALIC - Eye Exam Eye Exam: PERRL. absent: Scleral icterus - ENT Exam ENT Exam: Mucous Membranes Moist - Neck Exam Additional comments: supple, no JVD - Respiratory Exam Respiratory Exam: Decreased Breath Sounds (b/l lung bases), Clear to Auscultation Bilateral. absent: Rales, Rhonchi, Wheezes - Cardiovascular Exam Cardiovascular Exam: REGULAR RHYTHM, +S1, +S2 - GI/Abdominal Exam GI & Abdominal Exam: Normal Bowel Sounds, Soft. absent: Firm, Guarding, Tenderness - Extremities Exam Extremities exam: Negative for: calf tenderness, pedal edema - Skin Skin Exam: Dry, Warm Results - Vital Signs Recent Vital Signs: Last Vital Signs Temp 99.2 F 08/01/17 06:00 Pulse 94 H 08/01/17 06:00 Resp 18 08/01/17 06:00 BP 124/82 08/01/17 06:00 Pulse Ox 96 08/01/17 06:00 - Labs Result Diagrams: 08/01/17 10:30 08/01/17 10:30 Labs: Laboratory Results - last 24 hr 08/01/17 08/01/17 08/01/17 06:20 06:20 08:53 WBC 11.8 H D RBC 4.00 Hgb 10.3 L D Hct 31.5 L MCV 78.8 L MCH 25.8 MCHC 32.7 RDW 17.4 H Plt Count 366 MPV 10.8 Gran % 83.4 H Lymph % (Auto) 13.0 L Craig % (Auto) 3.4 Eos % (Auto) 0.0 L Baso % (Auto) 0.2 Gran # 9.81 H Lymph # (Auto) 1.5 Craig # (Auto) 0.4 Eos # (Auto) 0.0 Baso # (Auto) 0.02 PT INR APTT pCO2 pO2 HCO3 ABG pH ABG Total CO2 ABG O2 Saturation ABG O2 Content ABG Base Excess ABG Hemoglobin ABG Carboxyhemoglobin POC ABG HHb (Measured) ABG Methemoglobin ABG O2 Capacity VBG pH VBG pCO2 VBG HCO3 VBG Total CO2 VBG O2 Sat (Calc) VBG Base Excess VBG Potassium Hgb O2 Saturation Glucose Lactate FiO2 Sodium 149 H Potassium 2.9 L* D Chloride 118 H Carbon Dioxide 14 L Anion Gap 19 BUN 11 Creatinine 0.6 L Est GFR ( Amer) > 60 Est GFR (Non-Af Amer) > 60 POC Glucose (mg/dL) 120 H Random Glucose 100 Calcium 8.5 Total Bilirubin 0.4 AST 21 ALT 24 Alkaline Phosphatase 55 Troponin I Total Protein 6.6 Albumin 3.9 Globulin 2.7 Albumin/Globulin Ratio 1.5 Venous Blood Potassium 08/01/17 08/01/17 08/01/17 10:20 10:29 10:30 WBC RBC Hgb Hct MCV MCH MCHC RDW Plt Count MPV Gran % Lymph % (Auto) Craig % (Auto) Eos % (Auto) Baso % (Auto) Gran # Lymph # (Auto) Craig # (Auto) Eos # (Auto) Baso # (Auto) PT INR APTT pCO2 25 L pO2 234.0 H HCO3 10.5 L ABG pH 7.23 L ABG Total CO2 11.3 L ABG O2 Saturation 100.2 H ABG O2 Content 13.5 L ABG Base Excess -15.5 L ABG Hemoglobin 9.4 L ABG Carboxyhemoglobin 1.4 POC ABG HHb (Measured) -0.2 L ABG Methemoglobin 1.1 ABG O2 Capacity 13.5 L VBG pH VBG pCO2 VBG HCO3 VBG Total CO2 VBG O2 Sat (Calc) VBG Base Excess VBG Potassium Hgb O2 Saturation 97.7 Glucose Lactate FiO2 60.0 Sodium 149 H Potassium 2.5 L* Chloride 118 H Carbon Dioxide 11 L Anion Gap 23 H BUN 11 Creatinine 0.6 L Est GFR ( Amer) > 60 Est GFR (Non-Af Amer) > 60 POC Glucose (mg/dL) Random Glucose 133 H Calcium 8.2 L Total Bilirubin 0.5 AST 34 ALT 34 Alkaline Phosphatase 62 Troponin I 0.23 H* D Total Protein 6.7 Albumin 4.0 Globulin 2.8 Albumin/Globulin Ratio 1.4 Venous Blood Potassium 08/01/17 08/01/17 08/01/17 10:30 10:30 10:30 WBC 17.7 H D RBC 3.96 Hgb 10.2 L Hct 31.6 L MCV 79.8 L MCH 25.8 MCHC 32.3 RDW 17.4 H Plt Count 413 MPV 11.1 H Gran % 88.2 H Lymph % (Auto) 4.9 L Craig % (Auto) 6.7 H Eos % (Auto) 0.0 L Baso % (Auto) 0.2 Gran # 15.62 H Lymph # (Auto) 0.9 L Craig # (Auto) 1.2 H Eos # (Auto) 0.0 Baso # (Auto) 0.04 PT 14.2 H INR 1.23 H APTT 25.2 pCO2 pO2 55 HCO3 ABG pH ABG Total CO2 ABG O2 Saturation ABG O2 Content ABG Base Excess ABG Hemoglobin ABG Carboxyhemoglobin POC ABG HHb (Measured) ABG Methemoglobin ABG O2 Capacity VBG pH 7.13 L* VBG pCO2 43.0 VBG HCO3 14.3 L VBG Total CO2 15.6 L VBG O2 Sat (Calc) 89.5 H VBG Base Excess -14.4 L VBG Potassium 2.7 L Hgb O2 Saturation Glucose 127 H Lactate 1.4 FiO2 21.0 Sodium 147.0 Potassium Chloride 116.0 H Carbon Dioxide Anion Gap BUN Creatinine Est GFR ( Amer) Est GFR (Non-Af Amer) POC Glucose (mg/dL) Random Glucose Calcium Total Bilirubin AST ALT Alkaline Phosphatase Troponin I Total Protein Albumin Globulin Albumin/Globulin Ratio Venous Blood Potassium 2.7 L Assessment & Plan - Assessment and Plan (Free Text) Plan: Davida Centeno, 72 F, came to emergency room on 07/31 for epigastric and RUQ abdominal pain radiating to back and shoulder, and poor PO intake, associated with emesis. Tmax 102.9 at home. (+) associated feeling of food getting stuck in her throat. She has symptomatic cholelithasis, possibly biliary colic, no plan for surgery now. After 2 days of NPO, she started of liquid diet. While eating, patient collapse, unresponse to tactile stimuli, [employer] WORKER called, intubated to protect airway. CXR non signifiant for active disease. EKG NSR with non-specific STTW changes. A Respiratory failure due to AMS, unable to protect airway. Questionable aspiration High Anion gap metabolic acidosis with adequate respiratory compensation Hypernatermia, hypokalemia likely due to low nutrient and poor PO intake Elevated troponins likely type 2 Leukocytosis, Sepsis from GI infection vs SIRS/reaction to AMS/aspiration Neuro Propofol gtt CT head: No acute findings Pulm On mechanical ventilation ABG with shock at 2pm f/u Card Trend trops. Per Dr Wang, hold cardiac consult for now. If trops elev, consider heparin gtt GI OG tube in place Strict i.o Repleted Repeat electroltyes 2PM, 11PM Correct Na no more than 6-[address] Garcia, fisheries officer Morphine 2q4 PRN Zofran 2q4 PRN Heme No issue Endo Maintain blood glucose 140-180 Check TSH, free t4 Synthroid 50 ID Ceftriaxone, Flagyl s/r/d/w Dr. Gtz <John Gtz - Last Filed: 08/01/17 14:15> Meds - Medications Medications: Current Medications Acetaminophen (Tylenol 325mg Tab) 650 mg PO Q6H PRN PRN Reason: Headache Last Admin: 07/31/17 10:47 Dose: 650 mg Diazepam (Valium) 5 mg PO BID [facility] Last Admin: 07/31/17 18:09 Dose: 5 mg Fluoxetine HCl (Prozac) 20 mg PO BID [facility] Last Admin: 08/01/17 12:26 Dose: Not Given Home Med (Home Med) 1 unit PO TID PRN PRN Reason: NEUROPATHY Metronidazole (Flagyl) 250 mg in 50 mls @ 100 mls/hr IVPB Q8 [facility] PRN Reason: Protocol Stop: 08/05/17 10:01 Last Admin: 08/01/17 05:37 Dose: 100 mls/hr Ceftriaxone Sodium (Rocephin 1 Gram Ivpb) 1 gm in 100 mls @ 100 mls/hr IVPB DAILY [facility] PRN Reason: Protocol Last Admin: 07/31/17 14:55 Dose: 100 mls/hr Propofol (Diprivan) 1,000 mg in 100 mls @ 1.361 mls/hr IV .Q24H PRN; Protocol; 5 MCG/KG/MIN PRN Reason: TITRATE PER MD ORDER Last Admin: 08/01/17 11:23 Dose: 5 mcg/kg/min, 1.361 mls/hr Levothyroxine Sodium (Synthroid) 50 mcg PO DAILY [facility] Last Admin: 07/31/17 14:55 Dose: 50 mcg Lorazepam (Ativan) 2 mg IVP Q6H PRN; Protocol PRN Reason: Anxiety Morphine Sulfate (Morphine) 2 mg IVP Q4H PRN PRN Reason: Pain, severe (8-10) Ondansetron HCl (Zofran Inj) 4 mg IVP Q6H PRN PRN Reason: Nausea/Vomiting Quetiapine Fumarate (Seroquel) 50 mg PO HS [facility] Last Admin: 07/31/17 22:50 Dose: 50 mg Results - Vital Signs Recent Vital Signs: Last Vital Signs Temp 99.2 F 08/01/17 06:00 Pulse 94 H 08/01/17 06:00 Resp 18 08/01/17 06:00 BP 124/82 08/01/17 06:00 Pulse Ox 96 08/01/17 06:00 - Labs Result Diagrams: 08/01/17 10:30 08/01/17 10:30 Labs: Laboratory Results - last 24 hr 08/01/17 08/01/17 08/01/17 06:20 06:20 08:53 WBC 11.8 H D RBC 4.00 Hgb 10.3 L D Hct 31.5 L MCV 78.8 L MCH 25.8 MCHC 32.7 RDW 17.4 H Plt Count 366 MPV 10.8 Gran % 83.4 H Lymph % (Auto) 13.0 L Craig % (Auto) 3.4 Eos % (Auto) 0.0 L Baso % (Auto) 0.2 Gran # 9.81 H Lymph # (Auto) 1.5 Craig # (Auto) 0.4 Eos # (Auto) 0.0 Baso # (Auto) 0.02 PT INR APTT pCO2 pO2 HCO3 ABG pH ABG Total CO2 ABG O2 Saturation ABG O2 Content ABG Base Excess ABG Hemoglobin ABG Carboxyhemoglobin POC ABG HHb (Measured) ABG Methemoglobin ABG O2 Capacity ABG Potassium VBG pH VBG pCO2 VBG HCO3 VBG Total CO2 VBG O2 Sat (Calc) VBG Base Excess VBG Potassium Hgb O2 Saturation Glucose Lactate Mechanical Rate FiO2 Tidal Volume PEEP Sodium 149 H Potassium 2.9 L* D Chloride 118 H Carbon Dioxide 14 L Anion Gap 19 BUN 11 Creatinine 0.6 L Est GFR ( Amer) > 60 Est GFR (Non-Af Amer) > 60 POC Glucose (mg/dL) 120 H Random Glucose 100 Calcium 8.5 Total Bilirubin 0.4 AST 21 ALT 24 Alkaline Phosphatase 55 Troponin I Total Protein 6.6 Albumin 3.9 Globulin 2.7 Albumin/Globulin Ratio 1.5 Arterial Blood Potassium Venous Blood Potassium 08/01/17 08/01/17 08/01/17 10:20 10:29 10:30 WBC RBC Hgb Hct MCV MCH MCHC RDW Plt Count MPV Gran % Lymph % (Auto) Craig % (Auto) Eos % (Auto) Baso % (Auto) Gran # Lymph # (Auto) Craig # (Auto) Eos # (Auto) Baso # (Auto) PT INR APTT pCO2 25 L pO2 234.0 H HCO3 10.5 L ABG pH 7.23 L ABG Total CO2 11.3 L ABG O2 Saturation 100.2 H ABG O2 Content 13.5 L ABG Base Excess -15.5 L ABG Hemoglobin 9.4 L ABG Carboxyhemoglobin 1.4 POC ABG HHb (Measured) -0.2 L ABG Methemoglobin 1.1 ABG O2 Capacity 13.5 L ABG Potassium VBG pH VBG pCO2 VBG HCO3 VBG Total CO2 VBG O2 Sat (Calc) VBG Base Excess VBG Potassium Hgb O2 Saturation 97.7 Glucose Lactate Mechanical Rate FiO2 60.0 Tidal Volume PEEP Sodium 149 H Potassium 2.5 L* Chloride 118 H Carbon Dioxide 11 L Anion Gap 23 H BUN 11 Creatinine 0.6 L Est GFR ( Amer) > 60 Est GFR (Non-Af Amer) > 60 POC Glucose (mg/dL) Random Glucose 133 H Calcium 8.2 L Total Bilirubin 0.5 AST 34 ALT 34 Alkaline Phosphatase 62 Troponin I 0.23 H* D Total Protein 6.7 Albumin 4.0 Globulin 2.8 Albumin/Globulin Ratio 1.4 Arterial Blood Potassium Venous Blood Potassium 08/01/17 08/01/17 08/01/17 10:30 10:30 10:30 WBC 17.7 H D RBC 3.96 Hgb 10.2 L Hct 31.6 L MCV 79.8 L MCH 25.8 MCHC 32.3 RDW 17.4 H Plt Count 413 MPV 11.1 H Gran % 88.2 H Lymph % (Auto) 4.9 L Craig % (Auto) 6.7 H Eos % (Auto) 0.0 L Baso % (Auto) 0.2 Gran # 15.62 H Lymph # (Auto) 0.9 L Craig # (Auto) 1.2 H Eos # (Auto) 0.0 Baso # (Auto) 0.04 PT 14.2 H INR 1.23 H APTT 25.2 pCO2 pO2 55 HCO3 ABG pH ABG Total CO2 ABG O2 Saturation ABG O2 Content ABG Base Excess ABG Hemoglobin ABG Carboxyhemoglobin POC ABG HHb (Measured) ABG Methemoglobin ABG O2 Capacity ABG Potassium VBG pH 7.13 L* VBG pCO2 43.0 VBG HCO3 14.3 L VBG Total CO2 15.6 L VBG O2 Sat (Calc) 89.5 H VBG Base Excess -14.4 L VBG Potassium 2.7 L Hgb O2 Saturation Glucose 127 H Lactate 1.4 Mechanical Rate FiO2 21.0 Tidal Volume PEEP Sodium 147.0 Potassium Chloride 116.0 H Carbon Dioxide Anion Gap BUN Creatinine Est GFR ( Amer) Est GFR (Non-Af Amer) POC Glucose (mg/dL) Random Glucose Calcium Total Bilirubin AST ALT Alkaline Phosphatase Troponin I Total Protein Albumin Globulin Albumin/Globulin Ratio Arterial Blood Potassium Venous Blood Potassium 2.7 L 08/01/17 13:45 WBC RBC Hgb Hct MCV MCH MCHC RDW Plt Count MPV Gran % Lymph % (Auto) Craig % (Auto) Eos % (Auto) Baso % (Auto) Gran # Lymph # (Auto) Craig # (Auto) Eos # (Auto) Baso # (Auto) PT INR APTT pCO2 25 L pO2 186.0 H HCO3 13.2 L ABG pH 7.33 L ABG Total CO2 14.0 L ABG O2 Saturation 100.4 H ABG O2 Content ABG Base Excess -10.9 L ABG Hemoglobin ABG Carboxyhemoglobin POC ABG HHb (Measured) ABG Methemoglobin ABG O2 Capacity ABG Potassium 2.2 L* VBG pH VBG pCO2 VBG HCO3 VBG Total CO2 VBG O2 Sat (Calc) VBG Base Excess VBG Potassium Hgb O2 Saturation Glucose 113 H Lactate 0.6 L Mechanical Rate 15 FiO2 40.0 Tidal Volume 350 PEEP 5 Sodium 145.0 Potassium Chloride 121.0 H Carbon Dioxide Anion Gap BUN Creatinine Est GFR ( Amer) Est GFR (Non-Af Amer) POC Glucose (mg/dL) Random Glucose Calcium Total Bilirubin AST ALT Alkaline Phosphatase Troponin I Total Protein Albumin Globulin Albumin/Globulin Ratio Arterial Blood Potassium 2.2 L* Venous Blood Potassium Attending/Attestation - Attestation I have personally seen and examined this patient.: Yes I have fully participated in the care of the patient.: Yes I have reviewed all pertinent clinical information: Yes Notes (Text): 08/01/17 14:07 The patient was seen and examined at the bedside. Patient care was discussed with resident Medical records, lab studies were reviewed and management issues were discussed and formulated. Agree with above treatment plans as outlined in 's note with addition of the following: Respiratory Failure \\ Hypoxemia \\ Syncope \\ Encephalopathy \\ COPD \\ Hypokalemia \\ Renal Mass -hemodynamic monitoring to maintain MAP>65; f\\u serial CE and ECG; f\\u Echo -mechanical ventilation and o2 supplementation to maintain Spo2 >90 Pao2>60 -monitor for TV 6ml\\kg IBW and plateau pressure <30 -ABG and CXR reviewed; Fio2 decreased to 40%; continue nebs PRN -continue broad spectrum Abx and f\\u cultures ; ID team eval -f\\u Bun\\Cr and U\\o; monitor and continue to replace e-lites -NPO diet and aspiration precautions -CT head shows no acute bleed; pt was moving all extremities after intubation and no focal neurological deficits were noted -neurology team eval -Urology team f\\u fopr renal mass once more stable -surgical team f\\u -DVT \\ PUD prophylaxis CCM eval 42min
[2017-08-01 13:53] LABS: ARTERIAL BLOOD GAS HCO3 13.2 mmol/L (21-28); ARTERIAL BLOOD GAS O2 SAT 100.4 % (95-98); ARTERIAL BLOOD GAS PCO2 25 mm/Hg (35-45); ARTERIAL BLOOD GAS PH 7.33 (7.35-7.45)
[2017-08-01] MEDS ORDERED: Albuterol-Ipratrop 3 mg / 0.5 (3 ml) UD IH PRN (14:14)
[2017-08-01 14:27] LABS: ALB/GLOB RATIO 1.4 (1.1-1.8); ALBUMIN 3.6 g/dL (3.0-4.8); ALT/SGPT 41 U/L (7-56); AST/SGOT 46 U/L (14-36); BLOOD UREA NITROGEN 10 mg/dL (7-21); CALCIUM 8.1 mg/dL (8.4-10.5); GFR AFRICAN-AMERICAN > 60; GFR NON-AFRICAN AMERICAN > 60; TROPONIN I 0.29 ng/mL
[2017-08-01] MEDS ORDERED: Magnesium Sulfate 1 gm in D5W 1 GM/100 ML BAG IVPB ONE (14:58)
[2017-08-01] MEDS ORDERED: Potassium Phosphate 3 mmol/ml Inj IV ONE (15:00)
[2017-08-01] MEDS ORDERED: Potassium Phosphate 30 MMOLE in Sodium Chloride 0.9% 250 ML IVPB ONE (15:30)
[2017-08-01] MEDS: Magnesium Sulfate 1 gm in D5W 1 GM/100 ML BAG IVPB SCH (16:01)
[2017-08-01 20:52] LABS: HEMOGLOBIN 10.7 g/dL (12.0-16.0); MEAN CELL VOLUME 77.3 fl (80.0-105.0); RBC 4.15 10^6/uL (3.5-6.1); WHITE BLOOD COUNT 18.8 10^3/ul (4.5-11.0)
[2017-08-01 20:53] LABS: MEAN CORPUSCULAR HEMOGLOBIN 25.8 pg (25.0-35.0); MEAN CORPUSCULAR HGB CONC 33.3 g/dl (31.0-37.0); MEAN PLATELET VOLUME 10.5 fl (7.0-11.0); RED CELL DISTRIBUTION WIDTH 17.6 % (11.5-14.5)
[2017-08-01 20:59] LABS: ALB/GLOB RATIO 1.3 (1.1-1.8); ALBUMIN 3.8 g/dL (3.0-4.8); ALT/SGPT 39 U/L (7-56); AST/SGOT 31 U/L (14-36); BLOOD UREA NITROGEN 8 mg/dL (7-21); CALCIUM 8.3 mg/dL (8.4-10.5); GFR AFRICAN-AMERICAN > 60; GFR NON-AFRICAN AMERICAN > 60
--- NOTE | 2017-08-01 22:58 | CARD ---
APPROVED REPORT EXAM: Two-dimensional and M-mode echocardiogram with Doppler and color Doppler. INDICATION 2D DIMENSIONS IVSd0.9 (0.7-1.1cm)LVDd3.8 (3.9-5.9cm) PWd1.0 (0.7-1.1cm)LVDs3.3 (2.5-4.0cm) FS (%) 13.1 %LVEF (%)28.7 (>50%) M-Mode DIMENSIONS Left Atrium (MM)3.30 (2.5-4.0cm)Aortic Root3.10 (2.2-3.7cm) Aortic Cusp Exc.2.00 (1.5-2.0cm) Aortic Valve AoV Peak Ycjsuaer62.5cm/Jenny Peak GR.4mmHgAI P 1/2 [id number] Mitral Valve MV E Gfhbjeqp99.0cm/sMV A Ojsynvxz233.0cm/sE/A ratio0.6 TDI Lateral E' Peak V6.43cm/sMedial E' Peak V3.67cm/sE/Lateral E'12.0 E/Medial E'21.0 Tricuspid Valve TR Peak [id number] [id number] Peak Gr.12mmHg [id number] LEFT VENTRICLE The left ventricle is normal size. There is normal left ventricular wall thickness. The systolic function is severely impaired. Hypokinetic Septum Transmitral Doppler flow pattern is Grade I-abnormal relaxation pattern. RIGHT VENTRICLE The right ventricle is normal size. There is normal right ventricular wall thickness. The right ventricular systolic function is normal. ATRIA The left atrium size is normal. The right atrium size is normal. AORTIC VALVE The aortic valve is moderately thickened. There is mild to moderate aortic regurgitation. There is no aortic valvular stenosis. MITRAL VALVE The mitral valve is mildly thickened. Mitral regurgitation is mild. TRICUSPID VALVE The tricuspid valve is normal in structure. There is trace tricuspid regurgitation. PULMONIC VALVE The pulmonary valve is normal in structure. There is trace pulmonic valvular regurgitation. GREAT VESSELS The aortic root is normal in size. The IVC is normal in size and collapses >50% with inspiration. PERICARDIAL EFFUSION There is no pericardial effusion. <Conclusion> The left ventricle is normal size. There is normal left ventricular wall thickness. The systolic function is severely impaired. Hypokinetic Septum Transmitral Doppler flow pattern is Grade I-abnormal relaxation pattern. There is mild to moderate aortic regurgitation. Mitral regurgitation is mild.
[2017-08-02] MEDS: Propofol 10 mg/ml 1,000 MG/100 ML VIAL IV PRN (01:15)
[2017-08-02] MEDS: metroNIDAZOLE IV 250mg/50 ml 250 MG/50 ML BAG IVPB SCH ×3 (06:11→21:00)
[2017-08-02] MEDS: Magnesium Sulfate 1 gm in D5W 1 GM/100 ML BAG IVPB SCH (07:49)
[2017-08-02 07:51] LABS: ARTERIAL BLOOD GAS HCO3 13.9 mmol/L (21-28); ARTERIAL BLOOD GAS HEMOGLOBIN 11.4 g/dL (11.7-17.4); ARTERIAL BLOOD GAS O2 SAT 99.8 % (95-98); ARTERIAL BLOOD GAS PCO2 24 mm/Hg (35-45); ARTERIAL BLOOD GAS PH 7.37 (7.35-7.45); ARTERIAL BLOOD GAS TCO2 14.6 mmol.L (22-28)
[2017-08-02 08:43] LABS: BASO # 0.02 K/mm3 (0.0-2.0); BASO % 0.2 % (0.0-3.0); EOS % 0.2 % (1.5-5.0); GRAN # 10.39 (1.4-6.5); GRAN % 79.6 % (50.0-68.0); HEMOGLOBIN 10.6 g/dL (12.0-16.0); LYMPH # 1.3 (1.2-3.4); LYMPH % 9.7 % (22.0-35.0); MEAN CELL VOLUME 77.2 fl (80.0-105.0); MEAN CORPUSCULAR HEMOGLOBIN 25.7 pg (25.0-35.0); MEAN CORPUSCULAR HGB CONC 33.2 g/dl (31.0-37.0); MEAN PLATELET VOLUME 10.8 fl (7.0-11.0); MONO # 1.4 (0.1-0.6); MONO % 10.3 % (1.0-6.0); RBC 4.13 10^6/uL (3.5-6.1); RED CELL DISTRIBUTION WIDTH 17.7 % (11.5-14.5); WHITE BLOOD COUNT 13.1 10^3/ul (4.5-11.0)
[2017-08-02 08:45] LABS: ALB/GLOB RATIO 1.4 (1.1-1.8); ALBUMIN 3.6 g/dL (3.0-4.8); ALT/SGPT 34 U/L (7-56); AST/SGOT 23 U/L (14-36); BLOOD UREA NITROGEN 8 mg/dL (7-21); CALCIUM 7.9 mg/dL (8.4-10.5); GFR AFRICAN-AMERICAN > 60; GFR NON-AFRICAN AMERICAN > 60
--- NOTE | 2017-08-02 10:07 | RAD ---
HISTORY: intubated COMPARISON: No prior. FINDINGS: LUNGS: Evaluation limited due to steep oblique positioning. No infiltrate. Linear scar/atelectasis mid left lung. PLEURA: No significant pleural effusion identified, no pneumothorax apparent. CARDIOVASCULAR: ET tube tip 2.2 cm above tracheal alex. Nasogastric tube extends to central abdomen. OSSEOUS STRUCTURES: No significant abnormalities. VISUALIZED UPPER ABDOMEN: Normal. OTHER FINDINGS: None. IMPRESSION: No active disease.
[2017-08-02] MEDS ORDERED: Potassium Chloride 40 mEq/30 ml LIQ UD PO ONE (10:47)
[2017-08-02] MEDS: cefTRIAXone 1 gm 1 GM/100 ML BAG IVPB SCH ×2 (11:41→12:08)
[2017-08-02] MEDS ORDERED: Sodium Chloride 0.45% 1,000 ML IV SCH (11:45)
--- NOTE | 2017-08-02 11:59 | CP.CCUPN ---
<John Harris - Last Filed: 08/02/17 11:49> CCU Subjective - Physician Review Events Since Last Encounter (Free Text): 08/02/17 12:00 Patient seen and examined at bedside; no acute events overnight, patient is doing well and is now tolerating nasal cannula. Awake, alert, oriented, and pleasant. CCU Objective - Vital Signs / Intake & Output Intake and Output (Last 8hrs): Intake & Output 08/01/17 08/02/17 08/02/17 22:59 06:59 14:59 Intake Total 1935 640 Output Total 1200 1300 Balance 735 -660 Weight 42.808 kg Intake: IV 1935 640 Left Forearm 900 220 Right Forearm 1000 320 Oral 0 Output: Urine 1200 1300 2-way Urethral 1200 1300 Other: # Bowel Movements 0 - Physical Exam Head: Positive for: Atraumatic, Normocephalic Pupils: Positive for: PERRL Extroacular Muscles: Positive for: EOMI Conjunctiva: Positive for: Normal Mouth: Positive for: Moist Mucous Membranes Neck: Positive for: Normal Range of Motion Respiratory/Chest: Positive for: Clear to Auscultation, Good Air Exchange. Negative for: Respiratory Distress, Accessory Muscle Use Cardiovascular: Positive for: Regular Rate and Rhythm, Normal S1, S2. Negative for: Murmurs Abdomen: Positive for: Tenderness (periumbilical and epigastric tenderness). Negative for: Distention, Peritoneal Signs, Rebound, Guarding Back: Positive for: Normal Inspection. Negative for: CVA Tenderness, Midline Tenderness Upper Extremity: Positive for: Normal Inspection. Negative for: Cyanosis, Edema Lower Extremity: Positive for: Normal Inspection. Negative for: Edema Neurological: Positive for: GCS=15, CN II-XII Intact, Speech Normal, Motor Func Grossly Intact, Memory Normal Skin: Positive for: Warm, Dry, Normal Color. Negative for: Rashes Psychiatric: Positive for: Alert, Oriented x 3, Normal Insight, Normal Concentration - Medications Active Medications: Active Medications Generic Name Dose Route Start Last Admin Trade Name Freq PRN Reason Stop Dose Admin Acetaminophen 650 mg 07/31/17 03:22 07/31/17 10:47 Tylenol 325mg Tab PO 650 mg Q6H PRN Administration Headache Albuterol/Ipratropium 3 ml 08/01/17 14:14 Duoneb 3 Mg/0.5 Mg (3 Ml) Ud IH [id number] PRN Shortness of Breath Diazepam 5 mg 07/31/17 18:00 07/31/17 18:09 Valium PO 5 mg BID ELODIA Administration Fluoxetine HCl 20 mg 07/31/17 18:00 08/01/17 12:26 Prozac PO Not Given BID ELODIA Home Med 1 unit 07/31/17 14:51 Home Med PO TID PRN NEUROPATHY Metronidazole 250 mg in 50 mls @ 100 mls/hr 07/31/17 10:00 08/02/17 06:11 Flagyl IVPB 08/05/17 10:01 100 mls/hr Q8 ELODIA Administration Protocol Ceftriaxone Sodium 1 gm in 100 mls @ 100 mls/hr 07/31/17 10:00 07/31/17 14:55 Rocephin 1 Gram Ivpb IVPB 100 mls/hr DAILY ELODIA Administration Protocol Propofol 1,000 mg in 100 mls @ 1.361 mls/hr 08/01/17 09:32 08/02/17 01:15 Diprivan IV 40 mcg/kg/min .Q24H PRN 10.886 mls/hr TITRATE PER MD ORDER Administration Protocol 5 MCG/KG/MIN Potassium Chloride 10 meq in 100 mls @ 50 mls/hr 08/02/17 11:00 Potassium Chloride 10 Meq/100 Ml IVPB 08/02/17 14:59 Q2H ELODIA Sodium Chloride 1,000 mls @ 80 mls/hr 08/02/17 11:45 Sodium Chloride 0.45% IV .[id number] ELODIA Levothyroxine Sodium 50 mcg 07/31/17 14:45 07/31/17 14:55 Synthroid PO 50 mcg DAILY ELODIA Administration Lorazepam 2 mg 08/01/17 12:36 Ativan IVP Q6H PRN Anxiety Protocol Morphine Sulfate 2 mg 08/01/17 09:32 Morphine IVP Q4H PRN Pain, severe (8-10) Ondansetron HCl 4 mg 07/31/17 10:01 Zofran Inj IVP Q6H PRN Nausea/Vomiting Quetiapine Fumarate 50 mg 07/31/17 22:00 07/31/17 22:50 Seroquel PO 50 mg HS ELODIA Administration - Patient Studies Lab Studies: Microbiology Studies 07/31/17 10:00 Blood Culture - Preliminary Blood-Venous NO GROWTH AFTER 48 HOURS 07/31/17 10:35 Blood Culture - Preliminary Blood-Venous NO GROWTH AFTER 48 HOURS Lab Studies 08/02/17 08/02/17 08/02/17 Range/Units 08:15 08:15 07:30 WBC 13.1 H D (4.5-11.0) 10^3/ul RBC 4.13 (3.5-6.1) 10^6/uL Hgb 10.6 L (12.0-16.0) g/dL Hct 31.9 L (36.0-48.0) % MCV 77.2 L (80.0-105.0) fl MCH 25.7 (25.0-35.0) pg MCHC 33.2 (31.0-37.0) g/dl RDW 17.7 H (11.5-14.5) % Plt Count 396 (120.0-450.0) 10^3/uL MPV 10.8 (7.0-11.0) fl Gran % 79.6 H (50.0-68.0) % Lymph % (Auto) 9.7 L (22.0-35.0) % [place] % (Auto) 10.3 H (1.0-6.0) % Eos % (Auto) 0.2 L (1.5-5.0) % Baso % (Auto) 0.2 (0.0-3.0) % Gran # 10.39 H (1.4-6.5) Lymph # (Auto) 1.3 (1.2-3.4) [place] # (Auto) 1.4 H (0.1-0.6) Eos # (Auto) 0.0 (0.0-0.7) Baso # (Auto) 0.02 (0.0-2.0) K/mm3 pCO2 24 L (35-45) mm/Hg pO2 191.0 H (80-100) mm/Hg HCO3 13.9 L (21-28) mmol/L ABG pH 7.37 (7.35-7.45) ABG Total CO2 14.6 L (22-28) mmol.L ABG O2 Saturation 99.8 H (95-98) % ABG O2 Content 16.0 (15-23) ML/dl ABG Base Excess -9.8 L (-2.0-3.0) mmol/L ABG Hemoglobin 11.4 L (11.7-17.4) g/dL ABG Carboxyhemoglobin 1.3 (0.5-1.5) % POC ABG HHb (Measured) 0.2 (0-5) % ABG Methemoglobin 1.3 (0.0-3.0) % ABG O2 Capacity 16.0 (16-24) mL/dl ABG Potassium (3.6-5.2) mmol/L Hgb O2 Saturation 97.2 (95.0-98.0) % Sodium 145 (132-148) mmol/L Chloride 115 H (98-107) mmol/L Glucose (65-105) mg/dl Lactate (0.7-2.1) mmol/L Mechanical Rate FiO2 40.0 % Tidal Volume PEEP Potassium 3.1 L (3.6-5.0) mmol/L Carbon Dioxide 15 L (21-33) mmol/L Anion Gap 18 (10-20) BUN 8 (7-21) mg/dL Creatinine 0.5 L (0.7-1.2) mg/dl Est GFR ( Amer) > 60 Est GFR (Non-Af Amer) > 60 POC Glucose (mg/dL) (65-110) mg/dL Random Glucose 97 (70-110) mg/dL Calcium 7.9 L (8.4-10.5) mg/dL Phosphorus 2.0 L (2.5-4.5) mg/dL Magnesium 2.1 (1.7-2.2) mg/dL Total Bilirubin 0.3 (0.2-1.3) mg/dL AST 23 (14-36) U/L ALT 34 (7-56) U/L Alkaline Phosphatase 58 (38-126) U/L Troponin I ng/mL Total Protein 6.3 (5.8-8.3) g/dL Albumin 3.6 (3.0-4.8) g/dL Globulin 2.7 gm/dL Albumin/Globulin Ratio 1.4 (1.1-1.8) Arterial Blood Potassium (3.6-5.2) mmol/L 06/12/18 06/11/18 06/11/18 Range/Units 06:20 20:30 20:30 WBC 18.8 H (4.5-11.0) 10^3/ul RBC 4.15 (3.5-6.1) 10^6/uL Hgb 10.7 L (12.0-16.0) g/dL Hct 32.1 L (36.0-48.0) % MCV 77.3 L (80.0-105.0) fl MCH 25.8 (25.0-35.0) pg MCHC 33.3 (31.0-37.0) g/dl RDW 17.6 H (11.5-14.5) % Plt Count 423 (120.0-450.0) 10^3/uL MPV 10.5 (7.0-11.0) fl Gran % (50.0-68.0) % Lymph % (Auto) (22.0-35.0) % [place] % (Auto) (1.0-6.0) % Eos % (Auto) (1.5-5.0) % Baso % (Auto) (0.0-3.0) % Gran # (1.4-6.5) Lymph # (Auto) (1.2-3.4) [place] # (Auto) (0.1-0.6) Eos # (Auto) (0.0-0.7) Baso # (Auto) (0.0-2.0) K/mm3 pCO2 (35-45) mm/Hg pO2 (80-100) mm/Hg HCO3 (21-28) mmol/L ABG pH (7.35-7.45) ABG Total CO2 (22-28) mmol.L ABG O2 Saturation (95-98) % ABG O2 Content (15-23) ML/dl ABG Base Excess (-2.0-3.0) mmol/L ABG Hemoglobin (11.7-17.4) g/dL ABG Carboxyhemoglobin (0.5-1.5) % POC ABG HHb (Measured) (0-5) % ABG Methemoglobin (0.0-3.0) % ABG O2 Capacity (16-24) mL/dl ABG Potassium (3.6-5.2) mmol/L Hgb O2 Saturation (95.0-98.0) % Sodium 147 (132-148) mmol/L Chloride 116 H (98-107) mmol/L Glucose (65-105) mg/dl Lactate (0.7-2.1) mmol/L Mechanical Rate FiO2 % Tidal Volume PEEP Potassium 3.4 L (3.6-5.0) mmol/L Carbon Dioxide 14 L (21-33) mmol/L Anion Gap 21 H (10-20) BUN 8 (7-21) mg/dL Creatinine 0.5 L (0.7-1.2) mg/dl Est GFR ( Amer) > 60 Est GFR (Non-Af Amer) > 60 POC Glucose (mg/dL) (65-110) mg/dL Random Glucose 107 (70-110) mg/dL Calcium 8.3 L (8.4-10.5) mg/dL Phosphorus 2.9 (2.5-4.5) mg/dL Magnesium 2.3 H (1.7-2.2) mg/dL Total Bilirubin 0.4 (0.2-1.3) mg/dL AST 31 (14-36) U/L ALT 39 (7-56) U/L Alkaline Phosphatase 66 (38-126) U/L Troponin I 0.10 D ng/mL Total Protein 6.8 (5.8-8.3) g/dL Albumin 3.8 (3.0-4.8) g/dL Globulin 3.0 gm/dL Albumin/Globulin Ratio 1.3 (1.1-1.8) Arterial Blood Potassium (3.6-5.2) mmol/L 08/01/17 08/01/17 08/01/17 Range/Units 13:45 13:45 10:49 WBC (4.5-11.0) 10^3/ul RBC (3.5-6.1) 10^6/uL Hgb (12.0-16.0) g/dL Hct (36.0-48.0) % MCV (80.0-105.0) fl MCH (25.0-35.0) pg MCHC (31.0-37.0) g/dl RDW (11.5-14.5) % Plt Count (120.0-450.0) 10^3/uL MPV (7.0-11.0) fl Gran % (50.0-68.0) % Lymph % (Auto) (22.0-35.0) % [place] % (Auto) (1.0-6.0) % Eos % (Auto) (1.5-5.0) % Baso % (Auto) (0.0-3.0) % Gran # (1.4-6.5) Lymph # (Auto) (1.2-3.4) [place] # (Auto) (0.1-0.6) Eos # (Auto) (0.0-0.7) Baso # (Auto) (0.0-2.0) K/mm3 pCO2 25 L (35-45) mm/Hg pO2 186.0 H (80-100) mm/Hg HCO3 13.2 L (21-28) mmol/L ABG pH 7.33 L (7.35-7.45) ABG Total CO2 14.0 L (22-28) mmol.L ABG O2 Saturation 100.4 H (95-98) % ABG O2 Content (15-23) ML/dl ABG Base Excess -10.9 L (-2.0-3.0) mmol/L ABG Hemoglobin (11.7-17.4) g/dL ABG Carboxyhemoglobin (0.5-1.5) % POC ABG HHb (Measured) (0-5) % ABG Methemoglobin (0.0-3.0) % ABG O2 Capacity (16-24) mL/dl ABG Potassium 2.2 L* (3.6-5.2) mmol/L Hgb O2 Saturation (95.0-98.0) % Sodium 145.0 147 (132-148) mmol/L Chloride 121.0 H 117 H (98-107) mmol/L Glucose 113 H (65-105) mg/dl Lactate 0.6 L (0.7-2.1) mmol/L Mechanical Rate 15 FiO2 40.0 % Tidal Volume 350 PEEP 5 Potassium 2.6 L* (3.6-5.0) mmol/L Carbon Dioxide 14 L (21-33) mmol/L Anion Gap 19 (10-20) BUN 10 (7-21) mg/dL Creatinine 0.5 L (0.7-1.2) mg/dl Est GFR ( Amer) > 60 Est GFR (Non-Af Amer) > 60 POC Glucose (mg/dL) 116 H (65-110) mg/dL Random Glucose 121 H (70-110) mg/dL Calcium 8.1 L (8.4-10.5) mg/dL Phosphorus 1.5 L (2.5-4.5) mg/dL Magnesium 2.3 H (1.7-2.2) mg/dL Total Bilirubin 0.3 (0.2-1.3) mg/dL AST 46 H D (14-36) U/L ALT 41 (7-56) U/L Alkaline Phosphatase 57 (38-126) U/L Troponin I 0.29 H* D ng/mL Total Protein 6.2 (5.8-8.3) g/dL Albumin 3.6 (3.0-4.8) g/dL Globulin 2.6 gm/dL Albumin/Globulin Ratio 1.4 (1.1-1.8) Arterial Blood Potassium 2.2 L* (3.6-5.2) mmol/L 08/01/17 Range/Units 10:29 WBC (4.5-11.0) 10^3/ul RBC (3.5-6.1) 10^6/uL Hgb (12.0-16.0) g/dL Hct (36.0-48.0) % MCV (80.0-105.0) fl MCH (25.0-35.0) pg MCHC (31.0-37.0) g/dl RDW (11.5-14.5) % Plt Count (120.0-450.0) 10^3/uL MPV (7.0-11.0) fl Gran % (50.0-68.0) % Lymph % (Auto) (22.0-35.0) % [place] % (Auto) (1.0-6.0) % Eos % (Auto) (1.5-5.0) % Baso % (Auto) (0.0-3.0) % Gran # (1.4-6.5) Lymph # (Auto) (1.2-3.4) [place] # (Auto) (0.1-0.6) Eos # (Auto) (0.0-0.7) Baso # (Auto) (0.0-2.0) K/mm3 pCO2 (35-45) mm/Hg pO2 (80-100) mm/Hg HCO3 (21-28) mmol/L ABG pH (7.35-7.45) ABG Total CO2 (22-28) mmol.L ABG O2 Saturation (95-98) % ABG O2 Content (15-23) ML/dl ABG Base Excess (-2.0-3.0) mmol/L ABG Hemoglobin (11.7-17.4) g/dL ABG Carboxyhemoglobin (0.5-1.5) % POC ABG HHb (Measured) (0-5) % ABG Methemoglobin (0.0-3.0) % ABG O2 Capacity (16-24) mL/dl ABG Potassium (3.6-5.2) mmol/L Hgb O2 Saturation (95.0-98.0) % Sodium (132-148) mmol/L Chloride (98-107) mmol/L Glucose (65-105) mg/dl Lactate (0.7-2.1) mmol/L Mechanical Rate FiO2 % Tidal Volume PEEP Potassium (3.6-5.0) mmol/L Carbon Dioxide (21-33) mmol/L Anion Gap (10-20) BUN (7-21) mg/dL Creatinine (0.7-1.2) mg/dl Est GFR ( Amer) Est GFR (Non-Af Amer) POC Glucose (mg/dL) (65-110) mg/dL Random Glucose (70-110) mg/dL Calcium (8.4-10.5) mg/dL Phosphorus (2.5-4.5) mg/dL Magnesium (1.7-2.2) mg/dL Total Bilirubin (0.2-1.3) mg/dL AST (14-36) U/L ALT (7-56) U/L Alkaline Phosphatase (38-126) U/L Troponin I 0.23 H* D ng/mL Total Protein (5.8-8.3) g/dL Albumin (3.0-4.8) g/dL Globulin gm/dL Albumin/Globulin Ratio (1.1-1.8) Arterial Blood Potassium (3.6-5.2) mmol/L Laboratory Results - last 24 hr 08/01/17 08/01/17 08/01/17 10:29 10:49 13:45 WBC RBC Hgb Hct MCV MCH MCHC RDW Plt Count MPV Gran % Lymph % (Auto) [place] % (Auto) Eos % (Auto) Baso % (Auto) Gran # Lymph # (Auto) [place] # (Auto) Eos # (Auto) Baso # (Auto) pCO2 pO2 HCO3 ABG pH ABG Total CO2 ABG O2 Saturation ABG O2 Content ABG Base Excess ABG Hemoglobin ABG Carboxyhemoglobin POC ABG HHb (Measured) ABG Methemoglobin ABG O2 Capacity ABG Potassium Hgb O2 Saturation Sodium 147 Chloride 117 H Glucose Lactate Mechanical Rate FiO2 Tidal Volume PEEP Potassium 2.6 L* Carbon Dioxide 14 L Anion Gap 19 BUN 10 Creatinine 0.5 L Est GFR ( Amer) > 60 Est GFR (Non-Af Amer) > 60 POC Glucose (mg/dL) 116 H Random Glucose 121 H Calcium 8.1 L Phosphorus 1.5 L Magnesium 2.3 H Total Bilirubin 0.3 AST 46 H D ALT 41 Alkaline Phosphatase 57 Troponin I 0.23 H* D 0.29 H* D Total Protein 6.2 Albumin 3.6 Globulin 2.6 Albumin/Globulin Ratio 1.4 Arterial Blood Potassium 08/01/17 08/01/17 08/01/17 13:45 20:30 20:30 WBC 18.8 H RBC 4.15 Hgb 10.7 L Hct 32.1 L MCV 77.3 L MCH 25.8 MCHC 33.3 RDW 17.6 H Plt Count 423 MPV 10.5 Gran % Lymph % (Auto) [place] % (Auto) Eos % (Auto) Baso % (Auto) Gran # Lymph # (Auto) [place] # (Auto) Eos # (Auto) Baso # (Auto) pCO2 25 L pO2 186.0 H HCO3 13.2 L ABG pH 7.33 L ABG Total CO2 14.0 L ABG O2 Saturation 100.4 H ABG O2 Content ABG Base Excess -10.9 L ABG Hemoglobin ABG Carboxyhemoglobin POC ABG HHb (Measured) ABG Methemoglobin ABG O2 Capacity ABG Potassium 2.2 L* Hgb O2 Saturation Sodium 145.0 147 Chloride 121.0 H 116 H Glucose 113 H Lactate 0.6 L Mechanical Rate 15 FiO2 40.0 Tidal Volume 350 PEEP 5 Potassium 3.4 L Carbon Dioxide 14 L Anion Gap 21 H BUN 8 Creatinine 0.5 L Est GFR ( Amer) > 60 Est GFR (Non-Af Amer) > 60 POC Glucose (mg/dL) Random Glucose 107 Calcium 8.3 L Phosphorus 2.9 Magnesium 2.3 H Total Bilirubin 0.4 AST 31 ALT 39 Alkaline Phosphatase 66 Troponin I Total Protein 6.8 Albumin 3.8 Globulin 3.0 Albumin/Globulin Ratio 1.3 Arterial Blood Potassium 2.2 L* 08/02/17 08/02/17 08/02/17 06:20 07:30 08:15 WBC 13.1 H D RBC 4.13 Hgb 10.6 L Hct 31.9 L MCV 77.2 L MCH 25.7 MCHC 33.2 RDW 17.7 H Plt Count 396 MPV 10.8 Gran % 79.6 H Lymph % (Auto) 9.7 L [place] % (Auto) 10.3 H Eos % (Auto) 0.2 L Baso % (Auto) 0.2 Gran # 10.39 H Lymph # (Auto) 1.3 [place] # (Auto) 1.4 H Eos # (Auto) 0.0 Baso # (Auto) 0.02 pCO2 24 L pO2 191.0 H HCO3 13.9 L ABG pH 7.37 ABG Total CO2 14.6 L ABG O2 Saturation 99.8 H ABG O2 Content 16.0 ABG Base Excess -9.8 L ABG Hemoglobin 11.4 L ABG Carboxyhemoglobin 1.3 POC ABG HHb (Measured) 0.2 ABG Methemoglobin 1.3 ABG O2 Capacity 16.0 ABG Potassium Hgb O2 Saturation 97.2 Sodium Chloride Glucose Lactate Mechanical Rate FiO2 40.0 Tidal Volume PEEP Potassium Carbon Dioxide Anion Gap BUN Creatinine Est GFR ( Amer) Est GFR (Non-Af Amer) POC Glucose (mg/dL) Random Glucose Calcium Phosphorus Magnesium Total Bilirubin AST ALT Alkaline Phosphatase Troponin I 0.10 D Total Protein Albumin Globulin Albumin/Globulin Ratio Arterial Blood Potassium 08/02/17 08:15 WBC RBC Hgb Hct MCV MCH MCHC RDW Plt Count MPV Gran % Lymph % (Auto) [place] % (Auto) Eos % (Auto) Baso % (Auto) Gran # Lymph # (Auto) [place] # (Auto) Eos # (Auto) Baso # (Auto) pCO2 pO2 HCO3 ABG pH ABG Total CO2 ABG O2 Saturation ABG O2 Content ABG Base Excess ABG Hemoglobin ABG Carboxyhemoglobin POC ABG HHb (Measured) ABG Methemoglobin ABG O2 Capacity ABG Potassium Hgb O2 Saturation Sodium 145 Chloride 115 H Glucose Lactate Mechanical Rate FiO2 Tidal Volume PEEP Potassium 3.1 L Carbon Dioxide 15 L Anion Gap 18 BUN 8 Creatinine 0.5 L Est GFR ( Amer) > 60 Est GFR (Non-Af Amer) > 60 POC Glucose (mg/dL) Random Glucose 97 Calcium 7.9 L Phosphorus 2.0 L Magnesium 2.1 Total Bilirubin 0.3 AST 23 ALT 34 Alkaline Phosphatase 58 Troponin I Total Protein 6.3 Albumin 3.6 Globulin 2.7 Albumin/Globulin Ratio 1.4 Arterial Blood Potassium Critical Care Progress Note - Nutrition Nutrition: Nutrition Category Date Time Status Liquid Diet [DIET] Diets 08/01/17 Breakfast Ordered Assessment/Plan - Assessment and Plan (Free Text) Assessment: Davida Centeno, 72 F, came to emergency room on 07/31 for epigastric and RUQ abdominal pain radiating to back and shoulder, and poor PO intake, associated with emesis. Tmax 102.9 at home. (+) associated feeling of food getting stuck in her throat. She has symptomatic cholelithasis, possibly biliary colic, no plan for surgery now. After 2 days of NPO, she started of liquid diet. While eating, patient collapse, unresponse to tactile stimuli, CHAPLAIN called, intubated to protect airway. CXR non signifiant for active disease. EKG NSR with non-specific STTW changes. A Respiratory failure due to AMS, unable to protect airway. Questionable aspiration High Anion gap metabolic acidosis with adequate respiratory compensation Hypernatermia, hypokalemia likely due to low nutrient and poor PO intake Elevated troponins likely type 2 Leukocytosis, Sepsis from GI infection vs SIRS/reaction to AMS/aspiration Neuro Patient off sedation now, protecting her airway Maintain normothermia Pulm Patient on NC Card Maintain MAP > 65 No cardiology consult needed, patient had cheap tropes GI Patient passed liquid swallow eval Strict i.o Monitor electrolytes - K+ much better Correct Na no more than 6-[address] Garcia, setter off Morphine 2q4 PRN Zofran 2q4 PRN Heme DVT PPX Endo Maintain blood glucose 140-180 Check TSH, free t4 Synthroid 50 ID Ceftriaxone, Flagyl Dispo: at this time, will monitor patient on NC. If she maintains saturation and mentation, patient stable for [facility]. <Ced Goodman - Last Filed: 08/02/17 12:10> CCU Objective - Vital Signs / Intake & Output Intake and Output (Last 8hrs): Intake & Output 08/01/17 08/02/17 08/02/17 22:59 06:59 14:59 Intake Total 1935 640 Output Total 1200 1300 Balance 735 -660 Weight 94 lb 6 oz Intake: IV 1935 640 Left Forearm 900 220 Right Forearm 1000 320 Oral 0 Output: Urine 1200 1300 2-way Urethral 1200 1300 Other: # Bowel Movements 0 - Medications Active Medications: Active Medications Generic Name Dose Route Start Last Admin Trade Name Freq PRN Reason Stop Dose Admin Acetaminophen 650 mg 07/31/17 03:22 07/31/17 10:47 Tylenol 325mg Tab PO 650 mg Q6H PRN Administration Headache Albuterol/Ipratropium 3 ml 08/01/17 14:14 Duoneb 3 Mg/0.5 Mg (3 Ml) Ud IH [id number] PRN Shortness of Breath Diazepam 5 mg 07/31/17 18:00 07/31/17 18:09 Valium PO 5 mg BID ELODIA Administration Fluoxetine HCl 20 mg 07/31/17 18:00 08/01/17 12:26 Prozac PO Not Given BID ELODIA Home Med 1 unit 07/31/17 14:51 Home Med PO TID PRN NEUROPATHY Metronidazole 250 mg in 50 mls @ 100 mls/hr 07/31/17 10:00 08/02/17 06:11 Flagyl IVPB 08/05/17 10:01 100 mls/hr Q8 ELODIA Administration Protocol Ceftriaxone Sodium 1 gm in 100 mls @ 100 mls/hr 07/31/17 10:00 07/31/17 14:55 Rocephin 1 Gram Ivpb IVPB 100 mls/hr DAILY ELODIA Administration Protocol Propofol 1,000 mg in 100 mls @ 1.361 mls/hr 08/01/17 09:32 08/02/17 01:15 Diprivan IV 40 mcg/kg/min .Q24H PRN 10.886 mls/hr TITRATE PER MD ORDER Administration Protocol 5 MCG/KG/MIN Potassium Chloride 10 meq in 100 mls @ 50 mls/hr 08/02/17 11:00 Potassium Chloride 10 Meq/100 Ml IVPB 08/02/17 14:59 Q2H ELODIA Sodium Chloride 1,000 mls @ 80 mls/hr 08/02/17 11:45 Sodium Chloride 0.45% IV .[id number] ELODIA Levothyroxine Sodium 50 mcg 07/31/17 14:45 07/31/17 14:55 Synthroid PO 50 mcg DAILY ELODIA Administration Lorazepam 2 mg 08/01/17 12:36 Ativan IVP Q6H PRN Anxiety Protocol Morphine Sulfate 2 mg 08/01/17 09:32 Morphine IVP Q4H PRN Pain, severe (8-10) Ondansetron HCl 4 mg 07/31/17 10:01 Zofran Inj IVP Q6H PRN Nausea/Vomiting Quetiapine Fumarate 50 mg 07/31/17 22:00 07/31/17 22:50 Seroquel PO 50 mg HS ELODIA Administration - Patient Studies Lab Studies: Microbiology Studies 07/31/17 10:00 Blood Culture - Preliminary Blood-Venous NO GROWTH AFTER 48 HOURS 07/31/17 10:35 Blood Culture - Preliminary Blood-Venous NO GROWTH AFTER 48 HOURS Lab Studies 08/02/17 08/02/17 08/02/17 Range/Units 08:15 08:15 07:30 WBC 13.1 H D (4.5-11.0) 10^3/ul RBC 4.13 (3.5-6.1) 10^6/uL Hgb 10.6 L (12.0-16.0) g/dL Hct 31.9 L (36.0-48.0) % MCV 77.2 L (80.0-105.0) fl MCH 25.7 (25.0-35.0) pg MCHC 33.2 (31.0-37.0) g/dl RDW 17.7 H (11.5-14.5) % Plt Count 396 (120.0-450.0) 10^3/uL MPV 10.8 (7.0-11.0) fl Gran % 79.6 H (50.0-68.0) % Lymph % (Auto) 9.7 L (22.0-35.0) % [place] % (Auto) 10.3 H (1.0-6.0) % Eos % (Auto) 0.2 L (1.5-5.0) % Baso % (Auto) 0.2 (0.0-3.0) % Gran # 10.39 H (1.4-6.5) Lymph # (Auto) 1.3 (1.2-3.4) [place] # (Auto) 1.4 H (0.1-0.6) Eos # (Auto) 0.0 (0.0-0.7) Baso # (Auto) 0.02 (0.0-2.0) K/mm3 pCO2 24 L (35-45) mm/Hg pO2 191.0 H (80-100) mm/Hg HCO3 13.9 L (21-28) mmol/L ABG pH 7.37 (7.35-7.45) ABG Total CO2 14.6 L (22-28) mmol.L ABG O2 Saturation 99.8 H (95-98) % ABG O2 Content 16.0 (15-23) ML/dl ABG Base Excess -9.8 L (-2.0-3.0) mmol/L ABG Hemoglobin 11.4 L (11.7-17.4) g/dL ABG Carboxyhemoglobin 1.3 (0.5-1.5) % POC ABG HHb (Measured) 0.2 (0-5) % ABG Methemoglobin 1.3 (0.0-3.0) % ABG O2 Capacity 16.0 (16-24) mL/dl ABG Potassium (3.6-5.2) mmol/L Hgb O2 Saturation 97.2 (95.0-98.0) % Sodium 145 (132-148) mmol/L Chloride 115 H (98-107) mmol/L Glucose (65-105) mg/dl Lactate (0.7-2.1) mmol/L Mechanical Rate FiO2 40.0 % Tidal Volume PEEP Potassium 3.1 L (3.6-5.0) mmol/L Carbon Dioxide 15 L (21-33) mmol/L Anion Gap 18 (10-20) BUN 8 (7-21) mg/dL Creatinine 0.5 L (0.7-1.2) mg/dl Est GFR ( Amer) > 60 Est GFR (Non-Af Amer) > 60 POC Glucose (mg/dL) (65-110) mg/dL Random Glucose 97 (70-110) mg/dL Calcium 7.9 L (8.4-10.5) mg/dL Phosphorus 2.0 L (2.5-4.5) mg/dL Magnesium 2.1 (1.7-2.2) mg/dL Total Bilirubin 0.3 (0.2-1.3) mg/dL AST 23 (14-36) U/L ALT 34 (7-56) U/L Alkaline Phosphatase 58 (38-126) U/L Troponin I ng/mL Total Protein 6.3 (5.8-8.3) g/dL Albumin 3.6 (3.0-4.8) g/dL Globulin 2.7 gm/dL Albumin/Globulin Ratio 1.4 (1.1-1.8) Cortisol AM Sample (4.46-22.7) ug/dL Arterial Blood Potassium (3.6-5.2) mmol/L 08/02/17 08/02/17 08/01/17 Range/Units 06:20 06:10 20:30 WBC (4.5-11.0) 10^3/ul RBC (3.5-6.1) 10^6/uL Hgb (12.0-16.0) g/dL Hct (36.0-48.0) % MCV (80.0-105.0) fl MCH (25.0-35.0) pg MCHC (31.0-37.0) g/dl RDW (11.5-14.5) % Plt Count (120.0-450.0) 10^3/uL MPV (7.0-11.0) fl Gran % (50.0-68.0) % Lymph % (Auto) (22.0-35.0) % [place] % (Auto) (1.0-6.0) % Eos % (Auto) (1.5-5.0) % Baso % (Auto) (0.0-3.0) % Gran # (1.4-6.5) Lymph # (Auto) (1.2-3.4) [place] # (Auto) (0.1-0.6) Eos # (Auto) (0.0-0.7) Baso # (Auto) (0.0-2.0) K/mm3 pCO2 (35-45) mm/Hg pO2 (80-100) mm/Hg HCO3 (21-28) mmol/L ABG pH (7.35-7.45) ABG Total CO2 (22-28) mmol.L ABG O2 Saturation (95-98) % ABG O2 Content (15-23) ML/dl ABG Base Excess (-2.0-3.0) mmol/L ABG Hemoglobin (11.7-17.4) g/dL ABG Carboxyhemoglobin (0.5-1.5) % POC ABG HHb (Measured) (0-5) % ABG Methemoglobin (0.0-3.0) % ABG O2 Capacity (16-24) mL/dl ABG Potassium (3.6-5.2) mmol/L Hgb O2 Saturation (95.0-98.0) % Sodium 147 (132-148) mmol/L Chloride 116 H (98-107) mmol/L Glucose (65-105) mg/dl Lactate (0.7-2.1) mmol/L Mechanical Rate FiO2 % Tidal Volume PEEP Potassium 3.4 L (3.6-5.0) mmol/L Carbon Dioxide 14 L (21-33) mmol/L Anion Gap 21 H (10-20) BUN 8 (7-21) mg/dL Creatinine 0.5 L (0.7-1.2) mg/dl Est GFR ( Amer) > 60 Est GFR (Non-Af Amer) > 60 POC Glucose (mg/dL) (65-110) mg/dL Random Glucose 107 (70-110) mg/dL Calcium 8.3 L (8.4-10.5) mg/dL Phosphorus 2.9 (2.5-4.5) mg/dL Magnesium 2.3 H (1.7-2.2) mg/dL Total Bilirubin 0.4 (0.2-1.3) mg/dL AST 31 (14-36) U/L ALT 39 (7-56) U/L Alkaline Phosphatase 66 (38-126) U/L Troponin I 0.10 D ng/mL Total Protein 6.8 (5.8-8.3) g/dL Albumin 3.8 (3.0-4.8) g/dL Globulin 3.0 gm/dL Albumin/Globulin Ratio 1.3 (1.1-1.8) Cortisol AM Sample 22.0 (4.46-22.7) ug/dL Arterial Blood Potassium (3.6-5.2) mmol/L 08/01/17 08/01/17 08/01/17 Range/Units 20:30 13:45 13:45 WBC 18.8 H (4.5-11.0) 10^3/ul RBC 4.15 (3.5-6.1) 10^6/uL Hgb 10.7 L (12.0-16.0) g/dL Hct 32.1 L (36.0-48.0) % MCV 77.3 L (80.0-105.0) fl MCH 25.8 (25.0-35.0) pg MCHC 33.3 (31.0-37.0) g/dl RDW 17.6 H (11.5-14.5) % Plt Count 423 (120.0-450.0) 10^3/uL MPV 10.5 (7.0-11.0) fl Gran % (50.0-68.0) % Lymph % (Auto) (22.0-35.0) % [place] % (Auto) (1.0-6.0) % Eos % (Auto) (1.5-5.0) % Baso % (Auto) (0.0-3.0) % Gran # (1.4-6.5) Lymph # (Auto) (1.2-3.4) [place] # (Auto) (0.1-0.6) Eos # (Auto) (0.0-0.7) Baso # (Auto) (0.0-2.0) K/mm3 pCO2 25 L (35-45) mm/Hg pO2 186.0 H (80-100) mm/Hg HCO3 13.2 L (21-28) mmol/L ABG pH 7.33 L (7.35-7.45) ABG Total CO2 14.0 L (22-28) mmol.L ABG O2 Saturation 100.4 H (95-98) % ABG O2 Content (15-23) ML/dl ABG Base Excess -10.9 L (-2.0-3.0) mmol/L ABG Hemoglobin (11.7-17.4) g/dL ABG Carboxyhemoglobin (0.5-1.5) % POC ABG HHb (Measured) (0-5) % ABG Methemoglobin (0.0-3.0) % ABG O2 Capacity (16-24) mL/dl ABG Potassium 2.2 L* (3.6-5.2) mmol/L Hgb O2 Saturation (95.0-98.0) % Sodium 145.0 147 (132-148) mmol/L Chloride 121.0 H 117 H (98-107) mmol/L Glucose 113 H (65-105) mg/dl Lactate 0.6 L (0.7-2.1) mmol/L Mechanical Rate 15 FiO2 40.0 % Tidal Volume 350 PEEP 5 Potassium 2.6 L* (3.6-5.0) mmol/L Carbon Dioxide 14 L (21-33) mmol/L Anion Gap 19 (10-20) BUN 10 (7-21) mg/dL Creatinine 0.5 L (0.7-1.2) mg/dl Est GFR ( Amer) > 60 Est GFR (Non-Af Amer) > 60 POC Glucose (mg/dL) (65-110) mg/dL Random Glucose 121 H (70-110) mg/dL Calcium 8.1 L (8.4-10.5) mg/dL Phosphorus 1.5 L (2.5-4.5) mg/dL Magnesium 2.3 H (1.7-2.2) mg/dL Total Bilirubin 0.3 (0.2-1.3) mg/dL AST 46 H D (14-36) U/L ALT 41 (7-56) U/L Alkaline Phosphatase 57 (38-126) U/L Troponin I 0.29 H* D ng/mL Total Protein 6.2 (5.8-8.3) g/dL Albumin 3.6 (3.0-4.8) g/dL Globulin 2.6 gm/dL Albumin/Globulin Ratio 1.4 (1.1-1.8) Cortisol AM Sample (4.46-22.7) ug/dL Arterial Blood Potassium 2.2 L* (3.6-5.2) mmol/L 08/01/17 08/01/17 Range/Units 10:49 10:29 WBC (4.5-11.0) 10^3/ul RBC (3.5-6.1) 10^6/uL Hgb (12.0-16.0) g/dL Hct (36.0-48.0) % MCV (80.0-105.0) fl MCH (25.0-35.0) pg MCHC (31.0-37.0) g/dl RDW (11.5-14.5) % Plt Count (120.0-450.0) 10^3/uL MPV (7.0-11.0) fl Gran % (50.0-68.0) % Lymph % (Auto) (22.0-35.0) % [place] % (Auto) (1.0-6.0) % Eos % (Auto) (1.5-5.0) % Baso % (Auto) (0.0-3.0) % Gran # (1.4-6.5) Lymph # (Auto) (1.2-3.4) [place] # (Auto) (0.1-0.6) Eos # (Auto) (0.0-0.7) Baso # (Auto) (0.0-2.0) K/mm3 pCO2 (35-45) mm/Hg pO2 (80-100) mm/Hg HCO3 (21-28) mmol/L ABG pH (7.35-7.45) ABG Total CO2 (22-28) mmol.L ABG O2 Saturation (95-98) % ABG O2 Content (15-23) ML/dl ABG Base Excess (-2.0-3.0) mmol/L ABG Hemoglobin (11.7-17.4) g/dL ABG Carboxyhemoglobin (0.5-1.5) % POC ABG HHb (Measured) (0-5) % ABG Methemoglobin (0.0-3.0) % ABG O2 Capacity (16-24) mL/dl ABG Potassium (3.6-5.2) mmol/L Hgb O2 Saturation (95.0-98.0) % Sodium (132-148) mmol/L Chloride (98-107) mmol/L Glucose (65-105) mg/dl Lactate (0.7-2.1) mmol/L Mechanical Rate FiO2 % Tidal Volume PEEP Potassium (3.6-5.0) mmol/L Carbon Dioxide (21-33) mmol/L Anion Gap (10-20) BUN (7-21) mg/dL Creatinine (0.7-1.2) mg/dl Est GFR ( Amer) Est GFR (Non-Af Amer) POC Glucose (mg/dL) 116 H (65-110) mg/dL Random Glucose (70-110) mg/dL Calcium (8.4-10.5) mg/dL Phosphorus (2.5-4.5) mg/dL Magnesium (1.7-2.2) mg/dL Total Bilirubin (0.2-1.3) mg/dL AST (14-36) U/L ALT (7-56) U/L Alkaline Phosphatase (38-126) U/L Troponin I 0.23 H* D ng/mL Total Protein (5.8-8.3) g/dL Albumin (3.0-4.8) g/dL Globulin gm/dL Albumin/Globulin Ratio (1.1-1.8) Cortisol AM Sample (4.46-22.7) ug/dL Arterial Blood Potassium (3.6-5.2) mmol/L Laboratory Results - last 24 hr 08/01/17 08/01/17 08/01/17 10:29 10:49 13:45 WBC RBC Hgb Hct MCV MCH MCHC RDW Plt Count MPV Gran % Lymph % (Auto) [place] % (Auto) Eos % (Auto) Baso % (Auto) Gran # Lymph # (Auto) [place] # (Auto) Eos # (Auto) Baso # (Auto) pCO2 pO2 HCO3 ABG pH ABG Total CO2 ABG O2 Saturation ABG O2 Content ABG Base Excess ABG Hemoglobin ABG Carboxyhemoglobin POC ABG HHb (Measured) ABG Methemoglobin ABG O2 Capacity ABG Potassium Hgb O2 Saturation Sodium 147 Chloride 117 H Glucose Lactate Mechanical Rate FiO2 Tidal Volume PEEP Potassium 2.6 L* Carbon Dioxide 14 L Anion Gap 19 BUN 10 Creatinine 0.5 L Est GFR ( Amer) > 60 Est GFR (Non-Af Amer) > 60 POC Glucose (mg/dL) 116 H Random Glucose 121 H Calcium 8.1 L Phosphorus 1.5 L Magnesium 2.3 H Total Bilirubin 0.3 AST 46 H D ALT 41 Alkaline Phosphatase 57 Troponin I 0.23 H* D 0.29 H* D Total Protein 6.2 Albumin 3.6 Globulin 2.6 Albumin/Globulin Ratio 1.4 Cortisol AM Sample Arterial Blood Potassium 08/01/17 08/01/17 08/01/17 13:45 20:30 20:30 WBC 18.8 H RBC 4.15 Hgb 10.7 L Hct 32.1 L MCV 77.3 L MCH 25.8 MCHC 33.3 RDW 17.6 H Plt Count 423 MPV 10.5 Gran % Lymph % (Auto) [place] % (Auto) Eos % (Auto) Baso % (Auto) Gran # Lymph # (Auto) [place] # (Auto) Eos # (Auto) Baso # (Auto) pCO2 25 L pO2 186.0 H HCO3 13.2 L ABG pH 7.33 L ABG Total CO2 14.0 L ABG O2 Saturation 100.4 H ABG O2 Content ABG Base Excess -10.9 L ABG Hemoglobin ABG Carboxyhemoglobin POC ABG HHb (Measured) ABG Methemoglobin ABG O2 Capacity ABG Potassium 2.2 L* Hgb O2 Saturation Sodium 145.0 147 Chloride 121.0 H 116 H Glucose 113 H Lactate 0.6 L Mechanical Rate 15 FiO2 40.0 Tidal Volume 350 PEEP 5 Potassium 3.4 L Carbon Dioxide 14 L Anion Gap 21 H BUN 8 Creatinine 0.5 L Est GFR ( Amer) > 60 Est GFR (Non-Af Amer) > 60 POC Glucose (mg/dL) Random Glucose 107 Calcium 8.3 L Phosphorus 2.9 Magnesium 2.3 H Total Bilirubin 0.4 AST 31 ALT 39 Alkaline Phosphatase 66 Troponin I Total Protein 6.8 Albumin 3.8 Globulin 3.0 Albumin/Globulin Ratio 1.3 Cortisol AM Sample Arterial Blood Potassium 2.2 L* 08/02/17 08/02/17 08/02/17 06:10 06:20 07:30 WBC RBC Hgb Hct MCV MCH MCHC RDW Plt Count MPV Gran % Lymph % (Auto) [place] % (Auto) Eos % (Auto) Baso % (Auto) Gran # Lymph # (Auto) [place] # (Auto) Eos # (Auto) Baso # (Auto) pCO2 24 L pO2 191.0 H HCO3 13.9 L ABG pH 7.37 ABG Total CO2 14.6 L ABG O2 Saturation 99.8 H ABG O2 Content 16.0 ABG Base Excess -9.8 L ABG Hemoglobin 11.4 L ABG Carboxyhemoglobin 1.3 POC ABG HHb (Measured) 0.2 ABG Methemoglobin 1.3 ABG O2 Capacity 16.0 ABG Potassium Hgb O2 Saturation 97.2 Sodium Chloride Glucose Lactate Mechanical Rate FiO2 40.0 Tidal Volume PEEP Potassium Carbon Dioxide Anion Gap BUN Creatinine Est GFR ( Amer) Est GFR (Non-Af Amer) POC Glucose (mg/dL) Random Glucose Calcium Phosphorus Magnesium Total Bilirubin AST ALT Alkaline Phosphatase Troponin I 0.10 D Total Protein Albumin Globulin Albumin/Globulin Ratio Cortisol AM Sample 22.0 Arterial Blood Potassium 08/02/17 08/02/17 08:15 08:15 WBC 13.1 H D RBC 4.13 Hgb 10.6 L Hct 31.9 L MCV 77.2 L MCH 25.7 MCHC 33.2 RDW 17.7 H Plt Count 396 MPV 10.8 Gran % 79.6 H Lymph % (Auto) 9.7 L [place] % (Auto) 10.3 H Eos % (Auto) 0.2 L Baso % (Auto) 0.2 Gran # 10.39 H Lymph # (Auto) 1.3 [place] # (Auto) 1.4 H Eos # (Auto) 0.0 Baso # (Auto) 0.02 pCO2 pO2 HCO3 ABG pH ABG Total CO2 ABG O2 Saturation ABG O2 Content ABG Base Excess ABG Hemoglobin ABG Carboxyhemoglobin POC ABG HHb (Measured) ABG Methemoglobin ABG O2 Capacity ABG Potassium Hgb O2 Saturation Sodium 145 Chloride 115 H Glucose Lactate Mechanical Rate FiO2 Tidal Volume PEEP Potassium 3.1 L Carbon Dioxide 15 L Anion Gap 18 BUN 8 Creatinine 0.5 L Est GFR ( Amer) > 60 Est GFR (Non-Af Amer) > 60 POC Glucose (mg/dL) Random Glucose 97 Calcium 7.9 L Phosphorus 2.0 L Magnesium 2.1 Total Bilirubin 0.3 AST 23 ALT 34 Alkaline Phosphatase 58 Troponin I Total Protein 6.3 Albumin 3.6 Globulin 2.7 Albumin/Globulin Ratio 1.4 Cortisol AM Sample Arterial Blood Potassium Critical Care Progress Note - Nutrition Nutrition: Nutrition Category Date Time Status Liquid Diet [DIET] Diets 08/01/17 Breakfast Ordered Assessment/Plan - Assessment and Plan (Free Text) Assessment: Patient seen and examined on rounds with resident, agree with note with following additions/exceptions: Patient is 72yo female admitted with AMS and resp failure, and RUQ abd pain, for which she is being followed by surgery. Patient this morning was doing well on pressure support, awake, alert, following commands, RSBI 40, placed on CPAP for 1 hour, subsequently extubated to 2LNC, sat 98%. No major complaints. Resp failure, resolved AMS, resolved Hypernatremia Hypokalemia ELevated Troponin Leukocytosis Recommend: - supp o2 as needed, duonebs PRN - follow up cultures, Rocephi, Flagyl - Follow up surgery - speech swallow eval - Synthroid PO - check TSH, Free T4 - start 1/2 NS - replete K, Magnesium - FS control - GI ppx - DVT ppx - Monitor in MICU critical care time 40 minutes
--- NOTE | 2017-08-02 12:01 | PN ---
DATE: 08/02/2017 SUBJECTIVE: Davida Antonio is seen again this time in the ICU. She is intubated, but much more alert and awake than yesterday. Her abdomen is soft, nondistended, nontender and she has no pain. Discussed with the the findings of the CAT scan that the gallbladder was dilated with stones and sludge, but no secondary signs. In addition, there was a nodularity of the kidney that needs to be worked up electively. At this time, it looks like the patient will be extubated and a diet begun. Ramone Kennedy MD
--- NOTE | 2017-08-02 12:10 | CP.CCUPN ---
CCU Objective - Vital Signs / Intake & Output Intake and Output (Last 8hrs): Intake & Output 08/01/17 08/02/17 08/02/17 22:59 06:59 14:59 Intake Total 1935 640 Output Total 1200 1300 Balance 735 -660 Weight 42.808 kg Intake: IV 1935 640 Left Forearm 900 220 Right Forearm 1000 320 Oral 0 Output: Urine 1200 1300 2-way Urethral 1200 1300 Other: # Bowel Movements 0 - Physical Exam Head: Positive for: Atraumatic, Normocephalic Pupils: Positive for: PERRL Extroacular Muscles: Positive for: EOMI Conjunctiva: Positive for: Normal Mouth: Positive for: Moist Mucous Membranes Neck: Positive for: Normal Range of Motion Respiratory/Chest: Positive for: Clear to Auscultation, Good Air Exchange. Negative for: Respiratory Distress, Accessory Muscle Use Cardiovascular: Positive for: Regular Rate and Rhythm, Normal S1, S2. Negative for: Murmurs Abdomen: Positive for: Tenderness (periumbilical and epigastric tenderness). Negative for: Distention, Peritoneal Signs, Rebound, Guarding Back: Positive for: Normal Inspection. Negative for: CVA Tenderness, Midline Tenderness Upper Extremity: Positive for: Normal Inspection. Negative for: Cyanosis, Edema Lower Extremity: Positive for: Normal Inspection. Negative for: Edema Neurological: Positive for: GCS=15, CN II-XII Intact, Speech Normal, Motor Func Grossly Intact, Memory Normal Skin: Positive for: Warm, Dry, Normal Color. Negative for: Rashes Psychiatric: Positive for: Alert, Oriented x 3, Normal Insight, Normal Concentration - Medications Active Medications: Active Medications Generic Name Dose Route Start Last Admin Trade Name Freq PRN Reason Stop Dose Admin Acetaminophen 650 mg 07/31/17 03:22 07/31/17 10:47 Tylenol 325mg Tab PO 650 mg Q6H PRN Administration Headache Albuterol/Ipratropium 3 ml 08/01/17 14:14 Duoneb 3 Mg/0.5 Mg (3 Ml) Ud IH [id number] PRN Shortness of Breath Diazepam 5 mg 07/31/17 18:00 07/31/17 18:09 Valium PO 5 mg BID ELODIA Administration Fluoxetine HCl 20 mg 07/31/17 18:00 08/01/17 12:26 Prozac PO Not Given BID [facility] Home Med 1 unit 07/31/17 14:51 Home Med PO TID PRN NEUROPATHY Metronidazole 250 mg in 50 mls @ 100 mls/hr 07/31/17 10:00 08/02/17 06:11 Flagyl IVPB 08/05/17 10:01 100 mls/hr Q8 ELODIA Administration Protocol Ceftriaxone Sodium 1 gm in 100 mls @ 100 mls/hr 07/31/17 10:00 07/31/17 14:55 Rocephin 1 Gram Ivpb IVPB 100 mls/hr DAILY ELODIA Administration Protocol Propofol 1,000 mg in 100 mls @ 1.361 mls/hr 08/01/17 09:32 08/02/17 01:15 Diprivan IV 40 mcg/kg/min .Q24H PRN 10.886 mls/hr TITRATE PER MD ORDER Administration Protocol 5 MCG/KG/MIN Potassium Chloride 10 meq in 100 mls @ 50 mls/hr 08/02/17 11:00 Potassium Chloride 10 Meq/100 Ml IVPB 08/02/17 14:59 Q2H ELODIA Sodium Chloride 1,000 mls @ 80 mls/hr 08/02/17 11:45 Sodium Chloride 0.45% IV .[id number] ELODIA Levothyroxine Sodium 50 mcg 07/31/17 14:45 07/31/17 14:55 Synthroid PO 50 mcg DAILY ELODIA Administration Lorazepam 2 mg 08/01/17 12:36 Ativan IVP Q6H PRN Anxiety Protocol Morphine Sulfate 2 mg 08/01/17 09:32 Morphine IVP Q4H PRN Pain, severe (8-10) Ondansetron HCl 4 mg 07/31/17 10:01 Zofran Inj IVP Q6H PRN Nausea/Vomiting Quetiapine Fumarate 50 mg 07/31/17 22:00 07/31/17 22:50 Seroquel PO 50 mg HS ELODIA Administration - Patient Studies Lab Studies: Microbiology Studies 07/31/17 10:00 Blood Culture - Preliminary Blood-Venous NO GROWTH AFTER 48 HOURS 07/31/17 10:35 Blood Culture - Preliminary Blood-Venous NO GROWTH AFTER 48 HOURS Lab Studies 08/02/17 08/02/17 08/02/17 Range/Units 08:15 08:15 07:30 WBC 13.1 H D (4.5-11.0) 10^3/ul RBC 4.13 (3.5-6.1) 10^6/uL Hgb 10.6 L (12.0-16.0) g/dL Hct 31.9 L (36.0-48.0) % MCV 77.2 L (80.0-105.0) fl MCH 25.7 (25.0-35.0) pg MCHC 33.2 (31.0-37.0) g/dl RDW 17.7 H (11.5-14.5) % Plt Count 396 (120.0-450.0) 10^3/uL MPV 10.8 (7.0-11.0) fl Gran % 79.6 H (50.0-68.0) % Lymph % (Auto) 9.7 L (22.0-35.0) % [place] % (Auto) 10.3 H (1.0-6.0) % Eos % (Auto) 0.2 L (1.5-5.0) % Baso % (Auto) 0.2 (0.0-3.0) % Gran # 10.39 H (1.4-6.5) Lymph # (Auto) 1.3 (1.2-3.4) [place] # (Auto) 1.4 H (0.1-0.6) Eos # (Auto) 0.0 (0.0-0.7) Baso # (Auto) 0.02 (0.0-2.0) K/mm3 pCO2 24 L (35-45) mm/Hg pO2 191.0 H (80-100) mm/Hg HCO3 13.9 L (21-28) mmol/L ABG pH 7.37 (7.35-7.45) ABG Total CO2 14.6 L (22-28) mmol.L ABG O2 Saturation 99.8 H (95-98) % ABG O2 Content 16.0 (15-23) ML/dl ABG Base Excess -9.8 L (-2.0-3.0) mmol/L ABG Hemoglobin 11.4 L (11.7-17.4) g/dL ABG Carboxyhemoglobin 1.3 (0.5-1.5) % POC ABG HHb (Measured) 0.2 (0-5) % ABG Methemoglobin 1.3 (0.0-3.0) % ABG O2 Capacity 16.0 (16-24) mL/dl ABG Potassium (3.6-5.2) mmol/L Hgb O2 Saturation 97.2 (95.0-98.0) % Sodium 145 (132-148) mmol/L Chloride 115 H (98-107) mmol/L Glucose (65-105) mg/dl Lactate (0.7-2.1) mmol/L Mechanical Rate FiO2 40.0 % Tidal Volume PEEP Potassium 3.1 L (3.6-5.0) mmol/L Carbon Dioxide 15 L (21-33) mmol/L Anion Gap 18 (10-20) BUN 8 (7-21) mg/dL Creatinine 0.5 L (0.7-1.2) mg/dl Est GFR ( Amer) > 60 Est GFR (Non-Af Amer) > 60 POC Glucose (mg/dL) (65-110) mg/dL Random Glucose 97 (70-110) mg/dL Calcium 7.9 L (8.4-10.5) mg/dL Phosphorus 2.0 L (2.5-4.5) mg/dL Magnesium 2.1 (1.7-2.2) mg/dL Total Bilirubin 0.3 (0.2-1.3) mg/dL AST 23 (14-36) U/L ALT 34 (7-56) U/L Alkaline Phosphatase 58 (38-126) U/L Troponin I ng/mL Total Protein 6.3 (5.8-8.3) g/dL Albumin 3.6 (3.0-4.8) g/dL Globulin 2.7 gm/dL Albumin/Globulin Ratio 1.4 (1.1-1.8) Cortisol AM Sample (4.46-22.7) ug/dL Arterial Blood Potassium (3.6-5.2) mmol/L 08/02/17 08/02/17 08/01/17 Range/Units 06:20 06:10 20:30 WBC (4.5-11.0) 10^3/ul RBC (3.5-6.1) 10^6/uL Hgb (12.0-16.0) g/dL Hct (36.0-48.0) % MCV (80.0-105.0) fl MCH (25.0-35.0) pg MCHC (31.0-37.0) g/dl RDW (11.5-14.5) % Plt Count (120.0-450.0) 10^3/uL MPV (7.0-11.0) fl Gran % (50.0-68.0) % Lymph % (Auto) (22.0-35.0) % [place] % (Auto) (1.0-6.0) % Eos % (Auto) (1.5-5.0) % Baso % (Auto) (0.0-3.0) % Gran # (1.4-6.5) Lymph # (Auto) (1.2-3.4) [place] # (Auto) (0.1-0.6) Eos # (Auto) (0.0-0.7) Baso # (Auto) (0.0-2.0) K/mm3 pCO2 (35-45) mm/Hg pO2 (80-100) mm/Hg HCO3 (21-28) mmol/L ABG pH (7.35-7.45) ABG Total CO2 (22-28) mmol.L ABG O2 Saturation (95-98) % ABG O2 Content (15-23) ML/dl ABG Base Excess (-2.0-3.0) mmol/L ABG Hemoglobin (11.7-17.4) g/dL ABG Carboxyhemoglobin (0.5-1.5) % POC ABG HHb (Measured) (0-5) % ABG Methemoglobin (0.0-3.0) % ABG O2 Capacity (16-24) mL/dl ABG Potassium (3.6-5.2) mmol/L Hgb O2 Saturation (95.0-98.0) % Sodium 147 (132-148) mmol/L Chloride 116 H (98-107) mmol/L Glucose (65-105) mg/dl Lactate (0.7-2.1) mmol/L Mechanical Rate FiO2 % Tidal Volume PEEP Potassium 3.4 L (3.6-5.0) mmol/L Carbon Dioxide 14 L (21-33) mmol/L Anion Gap 21 H (10-20) BUN 8 (7-21) mg/dL Creatinine 0.5 L (0.7-1.2) mg/dl Est GFR ( Amer) > 60 Est GFR (Non-Af Amer) > 60 POC Glucose (mg/dL) (65-110) mg/dL Random Glucose 107 (70-110) mg/dL Calcium 8.3 L (8.4-10.5) mg/dL Phosphorus 2.9 (2.5-4.5) mg/dL Magnesium 2.3 H (1.7-2.2) mg/dL Total Bilirubin 0.4 (0.2-1.3) mg/dL AST 31 (14-36) U/L ALT 39 (7-56) U/L Alkaline Phosphatase 66 (38-126) U/L Troponin I 0.10 D ng/mL Total Protein 6.8 (5.8-8.3) g/dL Albumin 3.8 (3.0-4.8) g/dL Globulin 3.0 gm/dL Albumin/Globulin Ratio 1.3 (1.1-1.8) Cortisol AM Sample 22.0 (4.46-22.7) ug/dL Arterial Blood Potassium (3.6-5.2) mmol/L 08/01/17 08/01/17 08/01/17 Range/Units 20:30 13:45 13:45 WBC 18.8 H (4.5-11.0) 10^3/ul RBC 4.15 (3.5-6.1) 10^6/uL Hgb 10.7 L (12.0-16.0) g/dL Hct 32.1 L (36.0-48.0) % MCV 77.3 L (80.0-105.0) fl MCH 25.8 (25.0-35.0) pg MCHC 33.3 (31.0-37.0) g/dl RDW 17.6 H (11.5-14.5) % Plt Count 423 (120.0-450.0) 10^3/uL MPV 10.5 (7.0-11.0) fl Gran % (50.0-68.0) % Lymph % (Auto) (22.0-35.0) % [place] % (Auto) (1.0-6.0) % Eos % (Auto) (1.5-5.0) % Baso % (Auto) (0.0-3.0) % Gran # (1.4-6.5) Lymph # (Auto) (1.2-3.4) [place] # (Auto) (0.1-0.6) Eos # (Auto) (0.0-0.7) Baso # (Auto) (0.0-2.0) K/mm3 pCO2 25 L (35-45) mm/Hg pO2 186.0 H (80-100) mm/Hg HCO3 13.2 L (21-28) mmol/L ABG pH 7.33 L (7.35-7.45) ABG Total CO2 14.0 L (22-28) mmol.L ABG O2 Saturation 100.4 H (95-98) % ABG O2 Content (15-23) ML/dl ABG Base Excess -10.9 L (-2.0-3.0) mmol/L ABG Hemoglobin (11.7-17.4) g/dL ABG Carboxyhemoglobin (0.5-1.5) % POC ABG HHb (Measured) (0-5) % ABG Methemoglobin (0.0-3.0) % ABG O2 Capacity (16-24) mL/dl ABG Potassium 2.2 L* (3.6-5.2) mmol/L Hgb O2 Saturation (95.0-98.0) % Sodium 145.0 147 (132-148) mmol/L Chloride 121.0 H 117 H (98-107) mmol/L Glucose 113 H (65-105) mg/dl Lactate 0.6 L (0.7-2.1) mmol/L Mechanical Rate 15 FiO2 40.0 % Tidal Volume 350 PEEP 5 Potassium 2.6 L* (3.6-5.0) mmol/L Carbon Dioxide 14 L (21-33) mmol/L Anion Gap 19 (10-20) BUN 10 (7-21) mg/dL Creatinine 0.5 L (0.7-1.2) mg/dl Est GFR ( Amer) > 60 Est GFR (Non-Af Amer) > 60 POC Glucose (mg/dL) (65-110) mg/dL Random Glucose 121 H (70-110) mg/dL Calcium 8.1 L (8.4-10.5) mg/dL Phosphorus 1.5 L (2.5-4.5) mg/dL Magnesium 2.3 H (1.7-2.2) mg/dL Total Bilirubin 0.3 (0.2-1.3) mg/dL AST 46 H D (14-36) U/L ALT 41 (7-56) U/L Alkaline Phosphatase 57 (38-126) U/L Troponin I 0.29 H* D ng/mL Total Protein 6.2 (5.8-8.3) g/dL Albumin 3.6 (3.0-4.8) g/dL Globulin 2.6 gm/dL Albumin/Globulin Ratio 1.4 (1.1-1.8) Cortisol AM Sample (4.46-22.7) ug/dL Arterial Blood Potassium 2.2 L* (3.6-5.2) mmol/L 08/01/17 08/01/17 Range/Units 10:49 10:29 WBC (4.5-11.0) 10^3/ul RBC (3.5-6.1) 10^6/uL Hgb (12.0-16.0) g/dL Hct (36.0-48.0) % MCV (80.0-105.0) fl MCH (25.0-35.0) pg MCHC (31.0-37.0) g/dl RDW (11.5-14.5) % Plt Count (120.0-450.0) 10^3/uL MPV (7.0-11.0) fl Gran % (50.0-68.0) % Lymph % (Auto) (22.0-35.0) % [place] % (Auto) (1.0-6.0) % Eos % (Auto) (1.5-5.0) % Baso % (Auto) (0.0-3.0) % Gran # (1.4-6.5) Lymph # (Auto) (1.2-3.4) [place] # (Auto) (0.1-0.6) Eos # (Auto) (0.0-0.7) Baso # (Auto) (0.0-2.0) K/mm3 pCO2 (35-45) mm/Hg pO2 (80-100) mm/Hg HCO3 (21-28) mmol/L ABG pH (7.35-7.45) ABG Total CO2 (22-28) mmol.L ABG O2 Saturation (95-98) % ABG O2 Content (15-23) ML/dl ABG Base Excess (-2.0-3.0) mmol/L ABG Hemoglobin (11.7-17.4) g/dL ABG Carboxyhemoglobin (0.5-1.5) % POC ABG HHb (Measured) (0-5) % ABG Methemoglobin (0.0-3.0) % ABG O2 Capacity (16-24) mL/dl ABG Potassium (3.6-5.2) mmol/L Hgb O2 Saturation (95.0-98.0) % Sodium (132-148) mmol/L Chloride (98-107) mmol/L Glucose (65-105) mg/dl Lactate (0.7-2.1) mmol/L Mechanical Rate FiO2 % Tidal Volume PEEP Potassium (3.6-5.0) mmol/L Carbon Dioxide (21-33) mmol/L Anion Gap (10-20) BUN (7-21) mg/dL Creatinine (0.7-1.2) mg/dl Est GFR ( Amer) Est GFR (Non-Af Amer) POC Glucose (mg/dL) 116 H (65-110) mg/dL Random Glucose (70-110) mg/dL Calcium (8.4-10.5) mg/dL Phosphorus (2.5-4.5) mg/dL Magnesium (1.7-2.2) mg/dL Total Bilirubin (0.2-1.3) mg/dL AST (14-36) U/L ALT (7-56) U/L Alkaline Phosphatase (38-126) U/L Troponin I 0.23 H* D ng/mL Total Protein (5.8-8.3) g/dL Albumin (3.0-4.8) g/dL Globulin gm/dL Albumin/Globulin Ratio (1.1-1.8) Cortisol AM Sample (4.46-22.7) ug/dL Arterial Blood Potassium (3.6-5.2) mmol/L Laboratory Results - last 24 hr 06/11/18 06/11/18 06/11/18 10:29 10:49 13:45 WBC RBC Hgb Hct MCV MCH MCHC RDW Plt Count MPV Gran % Lymph % (Auto) [place] % (Auto) Eos % (Auto) Baso % (Auto) Gran # Lymph # (Auto) [place] # (Auto) Eos # (Auto) Baso # (Auto) pCO2 pO2 HCO3 ABG pH ABG Total CO2 ABG O2 Saturation ABG O2 Content ABG Base Excess ABG Hemoglobin ABG Carboxyhemoglobin POC ABG HHb (Measured) ABG Methemoglobin ABG O2 Capacity ABG Potassium Hgb O2 Saturation Sodium 147 Chloride 117 H Glucose Lactate Mechanical Rate FiO2 Tidal Volume PEEP Potassium 2.6 L* Carbon Dioxide 14 L Anion Gap 19 BUN 10 Creatinine 0.5 L Est GFR ( Amer) > 60 Est GFR (Non-Af Amer) > 60 POC Glucose (mg/dL) 116 H Random Glucose 121 H Calcium 8.1 L Phosphorus 1.5 L Magnesium 2.3 H Total Bilirubin 0.3 AST 46 H D ALT 41 Alkaline Phosphatase 57 Troponin I 0.23 H* D 0.29 H* D Total Protein 6.2 Albumin 3.6 Globulin 2.6 Albumin/Globulin Ratio 1.4 Cortisol AM Sample Arterial Blood Potassium 08/01/17 08/01/17 08/01/17 13:45 20:30 20:30 WBC 18.8 H RBC 4.15 Hgb 10.7 L Hct 32.1 L MCV 77.3 L MCH 25.8 MCHC 33.3 RDW 17.6 H Plt Count 423 MPV 10.5 Gran % Lymph % (Auto) [place] % (Auto) Eos % (Auto) Baso % (Auto) Gran # Lymph # (Auto) [place] # (Auto) Eos # (Auto) Baso # (Auto) pCO2 25 L pO2 186.0 H HCO3 13.2 L ABG pH 7.33 L ABG Total CO2 14.0 L ABG O2 Saturation 100.4 H ABG O2 Content ABG Base Excess -10.9 L ABG Hemoglobin ABG Carboxyhemoglobin POC ABG HHb (Measured) ABG Methemoglobin ABG O2 Capacity ABG Potassium 2.2 L* Hgb O2 Saturation Sodium 145.0 147 Chloride 121.0 H 116 H Glucose 113 H Lactate 0.6 L Mechanical Rate 15 FiO2 40.0 Tidal Volume 350 PEEP 5 Potassium 3.4 L Carbon Dioxide 14 L Anion Gap 21 H BUN 8 Creatinine 0.5 L Est GFR ( Amer) > 60 Est GFR (Non-Af Amer) > 60 POC Glucose (mg/dL) Random Glucose 107 Calcium 8.3 L Phosphorus 2.9 Magnesium 2.3 H Total Bilirubin 0.4 AST 31 ALT 39 Alkaline Phosphatase 66 Troponin I Total Protein 6.8 Albumin 3.8 Globulin 3.0 Albumin/Globulin Ratio 1.3 Cortisol AM Sample Arterial Blood Potassium 2.2 L* 08/02/17 08/02/17 08/02/17 06:10 06:20 07:30 WBC RBC Hgb Hct MCV MCH MCHC RDW Plt Count MPV Gran % Lymph % (Auto) [place] % (Auto) Eos % (Auto) Baso % (Auto) Gran # Lymph # (Auto) [place] # (Auto) Eos # (Auto) Baso # (Auto) pCO2 24 L pO2 191.0 H HCO3 13.9 L ABG pH 7.37 ABG Total CO2 14.6 L ABG O2 Saturation 99.8 H ABG O2 Content 16.0 ABG Base Excess -9.8 L ABG Hemoglobin 11.4 L ABG Carboxyhemoglobin 1.3 POC ABG HHb (Measured) 0.2 ABG Methemoglobin 1.3 ABG O2 Capacity 16.0 ABG Potassium Hgb O2 Saturation 97.2 Sodium Chloride Glucose Lactate Mechanical Rate FiO2 40.0 Tidal Volume PEEP Potassium Carbon Dioxide Anion Gap BUN Creatinine Est GFR ( Amer) Est GFR (Non-Af Amer) POC Glucose (mg/dL) Random Glucose Calcium Phosphorus Magnesium Total Bilirubin AST ALT Alkaline Phosphatase Troponin I 0.10 D Total Protein Albumin Globulin Albumin/Globulin Ratio Cortisol AM Sample 22.0 Arterial Blood Potassium 08/02/17 08/02/17 08:15 08:15 WBC 13.1 H D RBC 4.13 Hgb 10.6 L Hct 31.9 L MCV 77.2 L MCH 25.7 MCHC 33.2 RDW 17.7 H Plt Count 396 MPV 10.8 Gran % 79.6 H Lymph % (Auto) 9.7 L [place] % (Auto) 10.3 H Eos % (Auto) 0.2 L Baso % (Auto) 0.2 Gran # 10.39 H Lymph # (Auto) 1.3 [place] # (Auto) 1.4 H Eos # (Auto) 0.0 Baso # (Auto) 0.02 pCO2 pO2 HCO3 ABG pH ABG Total CO2 ABG O2 Saturation ABG O2 Content ABG Base Excess ABG Hemoglobin ABG Carboxyhemoglobin POC ABG HHb (Measured) ABG Methemoglobin ABG O2 Capacity ABG Potassium Hgb O2 Saturation Sodium 145 Chloride 115 H Glucose Lactate Mechanical Rate FiO2 Tidal Volume PEEP Potassium 3.1 L Carbon Dioxide 15 L Anion Gap 18 BUN 8 Creatinine 0.5 L Est GFR ( Amer) > 60 Est GFR (Non-Af Amer) > 60 POC Glucose (mg/dL) Random Glucose 97 Calcium 7.9 L Phosphorus 2.0 L Magnesium 2.1 Total Bilirubin 0.3 AST 23 ALT 34 Alkaline Phosphatase 58 Troponin I Total Protein 6.3 Albumin 3.6 Globulin 2.7 Albumin/Globulin Ratio 1.4 Cortisol AM Sample Arterial Blood Potassium Critical Care Progress Note - Nutrition Nutrition: Nutrition Category Date Time Status Liquid Diet [DIET] Diets 08/01/17 Breakfast Ordered Assessment/Plan - Assessment and Plan (Free Text) Assessment: Ms Velez Grace, 41 F, with PMhx of Hep C, polysubstance abuse, ETOH abuse x 5 years (last drink 07/30), IDDM, HTN, presented with swelling and erythema of the mouth/neck x 3 days, associated with dysphagia. CT soft tissue neck with contrast which showed Ludwigs Angina, soft tissue edema, left parapharyngeal space, epiglottis swelling, s/p abscess InD, and tracheostomy in the OR. Pt was on PS 5/5, 50-60%. Minimal suction out. Then, she became tachyneic, tachycardia , cough, so switch her to PRVC 400/12/P5/60% A 1. Ludwigs Angina Epiglotitis, Neck Cellulitis, Sepsis s/p trach, day 2 s/p I&D for abscess, day 2 (Drained 20cc pus, foul smelling) 2. DKA - resolved 3. Acute Cardiomyopathy 4. Transaminitis on NAC. 2/2 drug induce, sepsis, ischemic due to transient hypotension at SBP 90, R/O hepatitis, R/o autoimmune, pending acetaminophen level - trending down 5. ETOH abuse, Ativan induced psychosis Neuro Dilaudid 1q3PRN CIWA q4 D/C Versed, Fentanyl B1, folate, MV Per ENT, no plan to redo decadron/CT neck UDS (+) Methadone - restart @ 90 Nicotine patch Pulm Patient on CPAP setting now Goal is to titrate PO2 demand Continue trach care Pending ECHO (2012, normal EF) Duoneb PRN Card Cozaar 50, Amlodipine 10 daily Stop all IVF Lasix 40 daily Avoid over diuresing Pending Echo read GI Abdominal U/S: Fatty liver, splenomegaly Liver arterial doppler: Patent portal vein Start acetylcysteine per GI Nector thick, full liquid diet. - Keep cuff inflated Srtict i/o Check Mg to prevent refeeding syndrome Endo Levemir 20 BID, 3u regular insulin AC, ISSS-med Accu ACHS Heme ID CXR showed pulm edema cannot r/o pna. Zosyn (day 4) for G+ and anerobe coverage; Vanc Day 2; Doxy day 2 Decadrone x 1 RPT blood culture, as first one might have been contaminated Wound Cx - anerobe neg x 1d PVX protonix, heparin SC Dispo OOB to chair Consult Dr. Garrido, Dr Patel, Dr Levine
--- NOTE | 2017-08-02 16:24 | PN ---
DATE: 08/02/2017 SUBJECTIVE: A 72-year-old white female admitted to the hospital with episodes of weakness. The patient was found to be hypokalemic yesterday. The patient had been admitted with some abdominal discomfort and pain and shoulder pain with cholecystitis with some sand and gravel. The patient was yesterday and was restarted on full-liquid diet. She had been on antibiotics, but she was found to be hypokalemic, potassium riders were ordered; however, the patient developed episode of dizziness and had a loss of consciousness and the patient was intubated and transferred to Intensive Care Unit. The patient was in Intensive Care Unit today, seen with her . PHYSICAL EXAMINATION: VITAL SIGNS: Her vital signs are stable. Blood pressure 115/80, heart rate is 90 and regular, sinus rhythm. CHEST: Clear to auscultation and percussion. HEART: Regular sinus rhythm. EXTREMITIES: Without cyanosis, clubbing or edema. LABORATORY DATA: She has minimally elevated troponins. She is awake and alert despite being on . Her blood gases are good. PLAN: Today, she will be transitioned to possible weaning parameters today and to increase her . Since the patient is awake and alert and her blood gases are high, we will attempt to extubate the patient today if possible. The patient has severe kyphoscoliosis, celiac disease and a history of neuropathy. Geoffrey Wang MD
[2017-08-02] MEDS: Sodium Bicarbonate 8.4% 100 MEQ in Dextrose 5% In Water 1,000 ML IV SCH (17:05)
[2017-08-02 18:45] LABS: PH,URINE 6.5 (4.7-8.0); URINE BILIRUBIN NEGATIVE (NEGATIVE); URINE BLOOD NEGATIVE (NEGATIVE); URINE GLUCOSE (UA) NEGATIVE (NEGATIVE); URINE LEUKOCYTE ESTERASE NEGATIVE Leu/uL (NEGATIVE); URINE PROTEIN NEGATIVE mg/dL (<30 mg/dL); URINE UROBILINOGEN 0.2 E.U./dL (<1 E.U./dL)
[2017-08-02 18:51] LABS: URINE APPEARANCE CLEAR (CLEAR); URINE COLOR YELLOW (YELLOW)
[2017-08-02] MEDS: Potassium & Sodium Phosphate PO SCH (20:55)
--- NOTE | 2017-08-02 22:03 | CON ---
DATE: 08/02/2017 The patient admitted for Dr. Geoffrey Wang. REFERRING PHYSICIAN: Geoffrey Wang MD. REASON FOR CONSULTATION: Evaluation of a patient unknown to me who presents with an anion gap metabolic acidosis in the setting of hypokalemia and hypophosphatemia. HISTORY OF PRESENT ILLNESS: The patient is a 72-year-old white female with history of hypertension, history of COPD, osteoporosis, history of celiac disease, history of kyphoscoliosis with compression fractures, noted to have a left renal mass, history of peripheral neuropathy. The patient presented to the hospital with increasing abdominal pain, evaluation and imaging studies were positive for acute cholecystitis. The patient was admitted to the hospital for surgical evaluation and IV antibiotic therapy. On the date of admission to the hospital, she became unresponsive, perhaps aspiration, was sent down to the ICU. She was intubated and supported with ventilatory equipment. She is currently extubated and will likely be leaving back to telemetry later today. We are asked to evaluate the patient for an anion gap metabolic acidosis. Her CO2 level dropped as low as 11 and it is currently 15. The patient had been receiving IV fluids with half normal saline. The patient has no renal disease. She was also noted to be hypokalemic and hypophosphatemic. Magnesium levels were normal. PAST MEDICAL HISTORY: Significant for hypertension, possible COPD, osteoporosis, kyphoscoliosis, compression fractures, history of celiac disease, history of a left kidney mass diagnosed on imaging studies on admission to the hospital. MEDICATIONS AT HOME: Include that of Neurontin, Ultram, aspirin, Synthroid, Zanaflex, vitamin D3, oral potassium,
[2017-08-03] MEDS: metroNIDAZOLE IV 250mg/50 ml 250 MG/50 ML BAG IVPB SCH ×3 (05:44→21:41)
[2017-08-03 08:05] LABS: HEMOGLOBIN 10.3 g/dL (12.0-16.0); MEAN CELL VOLUME 76.2 fl (80.0-105.0); MEAN CORPUSCULAR HEMOGLOBIN 25.3 pg (25.0-35.0); MEAN CORPUSCULAR HGB CONC 33.2 g/dl (31.0-37.0); MEAN PLATELET VOLUME 10.5 fl (7.0-11.0); RBC 4.07 10^6/uL (3.5-6.1); RED CELL DISTRIBUTION WIDTH 17.2 % (11.5-14.5); WHITE BLOOD COUNT 10.4 10^3/ul (4.5-11.0)
[2017-08-03 08:33] LABS: T4 8.3 ug/dL (5.5-11.0)
[2017-08-03 08:37] LABS: ALB/GLOB RATIO 1.5 (1.1-1.8); ALBUMIN 3.6 g/dL (3.0-4.8); ALT/SGPT 29 U/L (7-56); AST/SGOT 23 U/L (14-36); BLOOD UREA NITROGEN 5 mg/dL (7-21); CALCIUM 8.1 mg/dL (8.4-10.5); GFR AFRICAN-AMERICAN > 60; GFR NON-AFRICAN AMERICAN > 60
[2017-08-03] MEDS: Magnesium Oxide 400 mg Tab UD PO SCH ×2 (09:12→17:16)
[2017-08-03] MEDS: Levothyroxine 50 MCG TAB PO SCH (09:12)
[2017-08-03] MEDS: Potassium & Sodium Phosphate PO SCH ×2 (09:13→17:16)
[2017-08-03] MEDS ORDERED: Morphine 2 mg/2 mL syringe IVP PRN (10:07)
[2017-08-03] MEDS: Sodium Bicarbonate 8.4% 100 MEQ in Dextrose 5% In Water 1,000 ML IV SCH (10:14)
--- NOTE | 2017-08-03 12:27 | PN ---
DATE: 08/03/2017 SUBJECTIVE: This is a 72-year-old white female who has recently had an arrhythmia and cardiac arrest, intubated, transferred to Intensive Care Unit. The patient was extubated and transferred back to floor. She is seen in the floor today. She is awake and alert, sitting seemingly with her . PHYSICAL EXAMINATION: CHEST: Clear to auscultation and percussion. HEART: Regular sinus rhythm. ABDOMEN: Soft. EXTREMITIES: Without cyanosis, clubbing or edema. The patient has severe kyphoscoliosis. She has severe peripheral neuropathy of undetermined origin. She has celiac disease, chronic depression and chronic hypokalemia. LABORATORY DATA: Today show her potassium of 3.1, H and H of 10.6 and 31.9 and white count of 13,100. She is afebrile. She was admitted with possible acute cholecystitis with gravel and sludge. She has no abdominal pain today. She is afebrile, she is on IV antibiotics. She is on potassium replacement. We will start her on a celiac diet, and gluten free diet and continue physical therapy. Geoffrey Wnag MD
--- NOTE | 2017-08-03 13:29 | RAD ---
HISTORY: intubated COMPARISON: 08/02/2017 FINDINGS: LUNGS: No active pulmonary disease. PLEURA: No significant pleural effusion identified, no pneumothorax apparent. CARDIOVASCULAR: Normal. OSSEOUS STRUCTURES: No significant abnormalities. VISUALIZED UPPER ABDOMEN: Normal. OTHER FINDINGS: None. IMPRESSION: No active disease.
[2017-08-03] MEDS: NS IV SCH (15:15)
[2017-08-03] MEDS: POTASSIUM PHOSPHATE IV SCH (15:15)
[2017-08-03] MEDS: DEXTROSE IV SCH (15:15)
[2017-08-03] MEDS: cefTRIAXone 1 gm 1 GM/100 ML BAG IVPB SCH (15:18)
--- NOTE | 2017-08-03 15:40 | PN ---
DATE: 08/03/2017 SUBJECTIVE: The patient is seen lying in bed. She complains of being very tired. She reports one loose bowel movement today. She denies any nausea or vomiting. She denies any abdominal pain. PHYSICAL EXAMINATION: GENERAL: Thinly built, elderly lady, lying in bed. VITAL SIGNS: Blood pressure 137/83, heart rate 86, respiratory rate 20, temperature 98.2. HEENT: Normocephalic, atraumatic, positive pallor. NECK: Supple, no JVD. LUNGS: Bilateral equal air entry, bilateral equal expansion. CARDIAC: S1 and S2, regular rate and rhythm, no murmur, no rub. ABDOMEN: Soft, nondistended, nontender, bowel sounds present. EXTREMITIES: No lower extremity edema. INTAKE AND OUTPUT: Not charted. LABORATORY DATA: WBC 10, hemoglobin 10, hematocrit 31, platelets 353. Sodium 143, potassium 2.8, chloride 105, CO2 of 25, BUN 5, creatinine 0.5, glucose 120, calcium 8.1, phosphorus 1.3, magnesium 1.7. Urinalysis: No proteinuria, no blood in the urine. Alcohol less than 10. Blood cultures, no growth. CURRENT MEDICATIONS: DuoNeb, Flagyl, potassium 10 mEq daily, mag oxide 400 b.i.d., morphine, Neutra-Phos 1 packet b.i.d., fluoxetine, ceftriaxone, Seroquel, sodium bicarbonate 50 mEq in D5W at 80, Synthroid, Tylenol, Valium, Zofran. ASSESSMENT: 1. Severe hypokalemia, exacerbated with IV bicarbonate. 2. Hypophosphatemia. 3. Hypomagnesemia. 4. Anion gap metabolic acidosis, resolved. 5. Celiac disease. 6. Hypertension. 7. Chronic obstructive pulmonary disease. PLAN: 1. Discontinue IV fluids, sodium bicarbonate because her CO2 is 25 today. 2. Change IV fluids to D5 normal saline with 20 mEq of potassium phosphate at 80 mL/hour. 3. Push p.o. intake. 4. Continue oral potassium phosphate. 5. Monitor electrolytes closely. Domitila Garcia MD
[2017-08-04] MEDS: NS IV SCH (03:59)
[2017-08-04] MEDS: DEXTROSE IV SCH (03:59)
[2017-08-04] MEDS: POTASSIUM PHOSPHATE IV SCH (03:59)
[2017-08-04] MEDS: metroNIDAZOLE IV 250mg/50 ml 250 MG/50 ML BAG IVPB SCH ×3 (05:46→21:36)
--- NOTE | 2017-08-04 07:48 | PCM.URO ---
Urology Progress Note - Objective Lab Studies: Reviewed (gu dx: left renal mass gu plans: ultrasound here but the next step is a noncontrast /contrast study which can be done as an outpt treatment) Lab Results Last 24 Hours: Laboratory Results - last 24 hr 08/03/17 08/03/17 08/03/17 07:45 07:45 07:45 WBC 10.4 D RBC 4.07 Hgb 10.3 L Hct 31.0 L MCV 76.2 L MCH 25.3 MCHC 33.2 RDW 17.2 H Plt Count 353 MPV 10.5 Sodium 143 Potassium 2.8 L* Chloride 105 Carbon Dioxide 25 Anion Gap 16 BUN 5 L Creatinine 0.5 L Est GFR ( Amer) > 60 Est GFR (Non-Af Amer) > 60 Random Glucose 120 H Calcium 8.1 L Phosphorus 1.3 L* Magnesium 1.7 Total Bilirubin 0.7 AST 23 ALT 29 Alkaline Phosphatase 54 Total Protein 6.1 Albumin 3.6 Globulin 2.5 Albumin/Globulin Ratio 1.5 Thyroxine (T4) 8.3 TSH 3rd Generation 2.72 Intake & Output: Intake & Output 08/03/17 08/04/17 08/04/17 18:59 06:59 18:59 Intake Total 2797 Output Total 2 Balance 2795 Weight 93 lb 6.4 oz Intake: IV 2200 Right Hand 2200 Oral 597 Output: Urine 2 Urine, Voided 2 Other: # Bowel Movements 1 Vital Signs: Vital Signs - 24 hr 08/03/17 08/03/17 08/03/17 09:00 10:00 11:28 Temperature 98.2 F Pulse Rate 85 82 86 Respiratory 20 Rate Blood Pressure 120/60 137/83 O2 Sat by Pulse Oximetry 08/03/17 08/03/17 08/03/17 14:00 18:00 22:00 Temperature Pulse Rate 89 83 96 H Respiratory Rate Blood Pressure O2 Sat by Pulse Oximetry 08/04/17 08/04/17 08/04/17 00:01 02:00 05:56 Temperature 98.6 F 98.5 F Pulse Rate 80 85 92 H Respiratory 18 18 Rate Blood Pressure 118/80 103/66 O2 Sat by Pulse 98 95 Oximetry
[2017-08-04] MEDS ORDERED: Potassium Chloride 10 mEq ER Tab PO SCH ×2 (08:00→18:25)
[2017-08-04 08:04] LABS: HEMOGLOBIN 11.1 g/dL (12.0-16.0); MEAN CELL VOLUME 76.9 fl (80.0-105.0); MEAN CORPUSCULAR HEMOGLOBIN 25.9 pg (25.0-35.0); MEAN CORPUSCULAR HGB CONC 33.6 g/dl (31.0-37.0); MEAN PLATELET VOLUME 10.8 fl (7.0-11.0); RBC 4.29 10^6/uL (3.5-6.1); RED CELL DISTRIBUTION WIDTH 17.3 % (11.5-14.5); WHITE BLOOD COUNT 9.1 10^3/ul (4.5-11.0)
[2017-08-04 08:31] LABS: ALB/GLOB RATIO 1.4 (1.1-1.8); ALBUMIN 3.5 g/dL (3.0-4.8); ALT/SGPT 30 U/L (7-56); AST/SGOT 22 U/L (14-36); BLOOD UREA NITROGEN 5 mg/dL (7-21); CALCIUM 7.7 mg/dL (8.4-10.5); GFR AFRICAN-AMERICAN > 60; GFR NON-AFRICAN AMERICAN > 60
--- NOTE | 2017-08-04 09:49 | PN ---
DATE: 08/04/2017 SUBJECTIVE: A 72-year-old white female admitted to the hospital with abdominal pain, was found to have cholecystitis without cholelithiasis, status post chronic arrhythmia with cardiac arrest, intubation, the patient is post ICU. She is doing well. She is awake and alert. She had been severely hypokalemic. She was also 2.8. She is repleted today. We are awaiting repeat labs. The patient is awake and alert. She slept well. She is conversant. There is no change in physical examination. The patient does have a history of celiac disease. She is on a celiac diet. PHYSICAL EXAMINATION: VITAL SIGNS: She is afebrile. Blood pressure is 103/66, pulse is 92. Physical examination is unchanged. ABDOMEN: Soft. Bowel sounds are normoactive. CHEST: Clear to auscultation and percussion. HEART: Regular sinus rhythm today. PLAN: Is to recheck her potassium and most likely, discharge home and increase potassium in her celiac diet. The patient will be followed as an outpatient for her cholecystitis. She will be continued on p.o. antibiotics at home. Geoffrey Wang MD
[2017-08-04] MEDS: cefTRIAXone 1 gm 1 GM/100 ML BAG IVPB SCH (10:20)
[2017-08-04] MEDS: Potassium & Sodium Phosphate PO SCH ×2 (10:20→17:23)
[2017-08-04] MEDS: Magnesium Oxide 400 mg Tab UD PO SCH ×2 (10:21→17:22)
[2017-08-04] MEDS: Levothyroxine 50 MCG TAB PO SCH (10:21)
[2017-08-04] MEDS: Potassium Phosphate 30 MMOLE in Dextrose 5%/0.9% NS 1,000 ML IV SCH (12:13)
--- NOTE | 2017-08-04 16:08 | US ---
PROCEDURE: Ultrasound of the Kidneys HISTORY: left renal mass COMPARISON: None available. TECHNIQUE: Sonogram of the kidneys. FINDINGS: RIGHT KIDNEY: Measures: 11.0 cm. Normal in size, contour and echogenicity. No stone, solid mass lesion or hydronephrosis visualized. LEFT KIDNEY: Measures: 11.7 cm. Normal in size, contour and echogenicity. No stone, solid mass lesion or hydronephrosis visualized. OTHER FINDINGS: None. IMPRESSION: Unremarkable renal sonogram.
--- NOTE | 2017-08-04 18:38 | PN ---
DATE: 08/04/2017 SUBJECTIVE: The patient is seen lying in bed. She is trying to eat a semisolid diet. She is comfortable. She denies any nausea, vomiting, or diarrhea. PHYSICAL EXAMINATION: GENERAL: Elderly lady lying in bed. VITAL SIGNS: Blood pressure 103/66, heart rate 92, respiratory rate 18, temperature 98.5. HEENT: Normocephalic, atraumatic. NECK: Supple, no JVD. LUNGS: Bilateral equal air entry, no rales. CARDIAC: S1 and S2, regular rate and rhythm, no murmur, no rub. ABDOMEN: Soft, nondistended, nontender, bowel sounds present. EXTREMITIES: No lower extremity edema. INTAKE AND OUTPUT: 2797/not charted. LABORATORY DATA: WBC 9, hemoglobin 11, hematocrit 33, and platelets 335. Sodium 147, potassium 2.8, chloride 110, CO2 of 25. BUN 5, creatinine 0.5. Glucose 116. Calcium 7.7, albumin 3.5, corrected calcium is 8, phosphorus 2.8, and magnesium 1.7. CURRENT MEDICATIONS: DuoNeb, Flagyl, potassium 10 mEq daily, mag oxide 400 b.i.d., morphine, Neutra-Phos 1 packet b.i.d., D5 normal saline with potassium phosphate 20 millimoles at 80, Prozac, Seroquel, Synthroid, Tylenol, diazepam, and Zofran. IMPRESSION: 1. Severe hypokalemia. 2. Hypophosphatemia, resolved. 3. Hypomagnesemia, resolved. 4. Severe hypocalcemia. 5. Anion gap metabolic acidosis, resolved. 6. Celiac disease. 7. Hypertension. PLAN: 1. KCl 20 mEq x2 doses. 2. Increase potassium phosphate in IV fluids to 30 millimoles 3. Check vitamin D, 25-hydroxy, and intact PTH. 4. Calcium gluconate 1 g IV piggyback. 5. Monitor electrolytes daily. Domitila Garcia MD
--- NOTE | 2017-08-05 03:26 | CON ---
DATE: 08/04/2017 PSYCHIATRIC CONSULTATION: HISTORY OF PRESENT ILLNESS: The patient is a 72-year-old female who has been well known to me. She has been under my care on a regular basis for over 20 years. She was treated for bipolar spectrum disorder, severe generalized anxiety. She apparently came to the hospital for "not feeling well" with increasing abdominal pain. She was found to have acute cholecystitis. On the day of admission, she became unresponsive, sent to the ICU. She was intubated and then finally extubated. She was found to have multiple metabolic problems, perhaps also aspiration. PAST MEDICAL HISTORY: The patient's past history psychiatrically, as noted she has been under my care for over 20 years. She has been treated with multiple psychotropic medications, through which she has been stable in terms of her psychiatric condition. She has been treated with Seroquel 50 mg b.i.d. and 200 mg at bedtime. She also has been receiving Prozac, fluoxetine 60 mg per day and has been on Valium 5 mg t.i.d. She gets very agitated, annoyed and totally unable to sleep. The patient is unable to sleep whenever medication has been lowered. She has always had a history of kyphosis and osteoporosis in addition to compression fractures. She has a history of celiac disease. She developed a debilitating peripheral neuropathy, was felt to be due to celiac disease. She is cared for this particular problem at [facility]. The patient also has a history of COPD, kyphoscoliosis and hypertension in the past. MEDICATIONS: The patient's other medications at home have included Neurontin, p.r.n. Ultram, aspirin, Synthroid, Zanaflex, vitamin D and oral potassium. PERSONAL HISTORY: She has been for many years. She has 4 children, 3 sons and a daughter. She lives with her and one of her daughters who recently had a child. The patient has been bedridden and unable to walk due to her severe neuropathy and atrophy of her lower extremities. She is unable to go out of the house alone and only ambulates in her hallway with the help of the physical therapist. The patient has no history of substance or alcohol abuse. 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 The patient has numerous family problems for which she is preoccupied. Any attempts to lower her psychotropic medicine has resulted in increased severe agitation and depressed mood. LABORATORY DATA: The patient's current laboratory data, on admission her white count was 11,800, currently 9100; hemoglobin is 11.1, MCV is 76.9. Her platelet count is 335,000. The patient's laboratory data on 08/03/2017, her potassium was 2.8, it is 2.8 again today; her sodium is 147; chloride 110; carbon dioxide 25; anion gap 15; BUN 5; creatinine 0.5; random glucose is 116; her calcium is 7.7. Rest of metabolic profile is normal; however, on admission, her phosphorus was 2 and yesterday it was also 1.3. The patient's thyroid functioning is normal. The patient's urinary ketones are 40. Urine is clear. Urine for toxicology is negative. CURRENT MEDICATIONS: The patient's current medications include DuoNeb treatments p.r.n., IV Flagyl. She is taking home medication. She is on Mag-Ox. She has an order for p.r.n. morphine, which she has not had. She is receiving Mlleta-Tokj-L, Prilosec 20 mg twice a day, quetiapine 50 mg at bedtime, levothyroxine, Valium 5 mg b.i.d. She also had Rocephin 1 g IV . The patient has had negative blood culture and MRSA nares culture. REVIEW OF SYSTEMS: She is very weak, difficult getting out of bed. She has trouble sleeping at night. She has complaints of weakness in her legs, slight nausea. Rest of review of systems is noncontributory. PHYSICAL EXAMINATION: VITAL SIGNS: Her blood pressure is 103/66, pulse is 92, respirations 18 per minute and afebrile. GENERAL: She is kyphotic. She is emaciated. She complains of slight nausea. PSYCHIATRIC: Her mental status, she is awake, alert, coherent, has pressured speech, aware of her surroundings. Able to give a coherent lucid history. Complains of extreme anxiety and difficulty sleeping. Obsessed with the fact she is not getting her usual dose of medications. Denies hallucinations or suicidal ideation. IMPRESSION: The patient is status post unresponsive episode. She has severe hypokalemia. She has a renal mass. She has a history of chronic obstructive pulmonary disease, severe neuropathy, celiac disease. The patient has gait dysfunction. She is status post extubated. She has a history of bipolar spectrum disorder, severe generalized anxiety. The patient has acute cholecystitis. PLAN: I reviewed psychotropic medicines. Discussed with the attending physician. Kameron Saba MD
[2017-08-05] MEDS: metroNIDAZOLE IV 250mg/50 ml 250 MG/50 ML BAG IVPB SCH (05:08)
[2017-08-05] MEDS: Potassium Phosphate 30 MMOLE in Dextrose 5%/0.9% NS 1,000 ML IV SCH (05:45)
[2017-08-05 06:35] LABS: HEMOGLOBIN 9.8 g/dL (12.0-16.0); MEAN CELL VOLUME 78.1 fl (80.0-105.0); MEAN CORPUSCULAR HEMOGLOBIN 25.6 pg (25.0-35.0); MEAN CORPUSCULAR HGB CONC 32.8 g/dl (31.0-37.0); MEAN PLATELET VOLUME 11.3 fl (7.0-11.0); RBC 3.83 10^6/uL (3.5-6.1); RED CELL DISTRIBUTION WIDTH 17.6 % (11.5-14.5); WHITE BLOOD COUNT 7.1 10^3/ul (4.5-11.0)
[2017-08-05 06:39] VITALS: O2SAT 98
[2017-08-05 07:18] LABS: ALB/GLOB RATIO 1.3 (1.1-1.8); ALBUMIN 3.2 g/dL (3.0-4.8); ALT/SGPT 24 U/L (7-56); AST/SGOT 21 U/L (14-36); BLOOD UREA NITROGEN 3 mg/dL (7-21); CALCIUM 7.9 mg/dL (8.4-10.5); GFR AFRICAN-AMERICAN > 60; GFR NON-AFRICAN AMERICAN > 60
[2017-08-05 11:38] LABS: ALDO/PRA RATIO 4.2 Ratio (0.9-28.9)
[2017-08-05 11:47] VITALS: BP 118/80; PULSE 97; RESP 20; TEMP 98.2
[2017-08-05] MEDS: Magnesium Oxide 400 mg Tab UD PO SCH (11:56)
[2017-08-05] MEDS: Levothyroxine 50 MCG TAB PO SCH ×2 (11:57→11:58)
[2017-08-05] MEDS: Potassium & Sodium Phosphate PO SCH (11:57)
--- NOTE | 2017-08-05 20:00 | PN ---
DATE: 08/05/2017 SUBJECTIVE: The patient states that she will likely be discharged home later today. She has no complaints. No abdominal pain. No nausea, vomiting, or diarrhea. MEDICATIONS: Medication list reviewed. The patient is on DuoNeb, oral potassium, magnesium oxide, Neutra-Phos, potassium and phosphorus in IV fluids, Prozac, Seroquel, Tylenol p.r.n., Valium, and Zofran. PHYSICAL EXAMINATION: INTAKE AND OUTPUT: Intake is 1120, output not charted. VITAL SIGNS: Blood pressure 118/80, temperature 98.2, respiratory rate of 20 with a pulse of 97. HEENT: Shows her to be normocephalic, atraumatic. Conjunctivae are pale. Sclerae nonicteric. NECK: Supple. No neck vein distention. CHEST: Clear to auscultation and percussion. No rales, rhonchi, or wheezing. CARDIOVASCULAR: Shows a regular rate and rhythm without audible murmurs, rubs, or gallops. ABDOMEN: Soft. Nontender. Bowel sounds normal. No masses. No rebound or guarding. EXTREMITIES: No lower extremity cyanosis, clubbing, or edema. LABORATORY DATA AND IMAGING: CBC today, white blood cell count 7.1, hemoglobin 9.8 with a platelet count of 273,000. Chemistries show potassium which is up to 3.5, chloride 112. Her CO2 level has risen from 11 to 24. Glucose level is 101, BUN 3 with a creatinine of 0.4. Liver enzymes are normal. Albumin is 3.2. Microbiology, all cultures are negative. ASSESSMENT: 1. Status post anion gap metabolic acidosis. This has resolved with appropriate hydration and bicarbonate therapy. 2. Hypokalemia, hypophosphatemia, hypomagnesemia. All have resolved. The patient will be discharged home on appropriate supplements. 3. Mild hypocalcemia with an albumin level of 3.2, this corrects to normal. 4. Acute cholecystitis, treated with appropriate antibiotic therapy. 5. Left renal mass. This will be evaluated in the outpatient setting. 6. History of osteoporosis, kyphoscoliosis, compression fractures, all stable. 7. History of celiac disease, stable. 8. History of hypertension. Blood pressure controlled on present medical therapy. The patient is currently not taking any antihypertensive medications. 9. Hypothyroidism. The patient should continue thyroid replacement therapy upon discharge. PLAN: 1. Agree with discharge home. The patient will continue appropriate supplements. 2. The patient will follow up with Dr. Wang in the outpatient setting to follow electrolytes and to supplement any further deficiencies. Orville Yañez MD
--- NOTE | 2017-08-05 23:55 | DS ---
HISTORY OF PRESENT ILLNESS: This is a 72-year-old white female with history of severe bilateral neuropathy, history of celiac disease, severe osteoporosis, bipolar depression and anxiety disorder. Patient presented to the hospital with abdominal pain and was found to have acute cholecystitis without cholelithiasis. The patient developed episode of severe hypokalemia and developed arrhythmia, was had code arrest and was intubated, sent to the Intensive Care Unit. She was extubated. Potassium was repleted. Her arrhythmia resolved. Her enzymes were negative. The patient eventually was transferred back to the floor and continue to have episodes of potassium which was replaced orally and intravenously, eventually her potassium is up to 3.5, she was able to be discharged home in improved condition. She will be followed as an outpatient. PHYSICAL EXAMINATION: VITAL SIGNS: Stable. She is afebrile. ABDOMEN: Soft. FINAL DISCHARGE DIAGNOSES: The patient with acute cholecystitis, severe hypokalemia, cardiac arrest, cardiac arrhythmia, celiac disease, bipolar depression and severe peripheral neuropathy. Geoffrey Wang MD
== END 2017-08-05 18:15 | disposition home or self-care (01) | DRG 444 ==
LOC: ED 21:09 → ERH 07-31 00:35 → 5RNO 07-31 02:06 → ICU 08-01 09:13 → 2RSO 08-02 22:08
PROVIDERS: ADMIT Internal Medicine; ATTEND Internal Medicine
PROC: 5A1935Z Respiratory Ventilation, Less than 24 Consecutive Hours (ICD-10-PCS; principal; 2017-08-01)
PROC: 0BH17EZ Insertion of Endotracheal Airway into Trachea, Via Natural or Artificial Opening (ICD-10-PCS; 2017-08-01)
DX: K81.0 Acute cholecystitis (principal); J96.91 Respiratory failure, unspecified with hypoxia; G93.40 Encephalopathy, unspecified; I46.9 Cardiac arrest, cause unspecified; E87.0 Hyperosmolality and hypernatremia; E87.2 Acidosis; I42.9 Cardiomyopathy, unspecified; G62.9 Polyneuropathy, unspecified; E87.6 Hypokalemia; F31.9 Bipolar disorder, unspecified; M81.0 Age-related osteoporosis without current pathological fracture; J44.9 Chronic obstructive pulmonary disease, unspecified; I10 Essential (primary) hypertension; R26.2 Difficulty in walking, not elsewhere classified; R62.7 Adult failure to thrive; K90.0 Celiac disease; E83.39 Other disorders of phosphorus metabolism; E03.9 Hypothyroidism, unspecified; F41.1 Generalized anxiety disorder; M41.9 Scoliosis, unspecified; Z74.01 Bed confinement status